=== PATIENT | female | born 1950 | race Caucasian/White ===

== ENCOUNTER 2016-04-13 17:11 | Observation (INO) | payer BC, MEDICARE ==
[2016-04-13] MEDS ORDERED: IPRATROPIUM/ALBUTEROL (0.5MG/3MG) NEB INH ONE (17:32)
--- NOTE | 2016-04-13 17:38 | Emergency Department Record ---
History of Present Illness - General Chief Complaint: Shortness of breath Stated Complaint: ANEUDY Time Seen by Provider: 04/13/16 17:36 Source: Patient Mode of Arrival: Ambulatory Limitations: No limitations - History of Present Illness Initial Comments: The patient has a long hx of COPD and now is here due to a 2 day hx of cough and congestion. She is not coughing up any sputum and denies any CP but is having ANEUDY and SOB with the congestion. She also has been feeling very warm lately and has been taking Advil for a presumed fever. The patient was admitted here at [facility] about a month ago due to the COPD and was an inpatient for 3 days. MD Complaint: Cough, Shortness of breath Onset/Timin -: Days(s) Radiation: Back Severity: Moderate Quality: Aching Consistency: Constant Improves With: Nothing Worsens With: Exertion Known History Of: COPD Associated Symptoms: Cough, Pain with inspiration Treatments Prior to Arrival: Bronchodilator - Related Data Home Oxygen Therapy: Yes Home Oxygen Amount: 2 Liters Home Medications Medication Instructions Recorded Confirmed Last Taken Albuterol Sulfate [Ventolin Hfa] 1 - 2 puff INH Q6H 07/02/14 04/13/16 03/15/16 Alendronate Sodium 1 tab PO WEEKLY 07/02/14 04/13/16 07/01/14 Mometasone/Formoterol [Dulera 200 2 puff IH BID 03/15/16 04/13/16 03/15/16 Mcg/5 Mcg Inhaler] Magnesium Oxide [Magnesium] 400 mg PO DAILY 03/16/16 04/13/16 Unknown Nicotine Polacrilex [Nicorette] 2 mg PO DAILY PRN 03/16/16 04/13/16 Unknown Previous Rx's Medication Instructions Recorded Guaifenesin [Mucinex] 1,200 mg PO BID #10 tbmp.12hr 03/18/16 Tiotropium [place] [Spiriva] 1 cap IH DAILY #1 cap.w.dev 03/18/16 Allergies Allergy/AdvReac Type Severity Reaction Status Date / Time Penicillins Allergy Unknown PT UNSURE Verified 07/02/14 13:24 OF REACTION Travel Screening - Travel/Exposure Within Last 30 Days Have you traveled within the last 30 days?: No Review of Systems Constitutional: Reports: Chills, Fever, Malaise Eyes: Denies: Eye discharge ENT: Reports: Congestion Respiratory: Reports: Cough, Dyspnea Cardiovascular: Denies: Arrhythmia, Chest pain Endocrine: Reports: Fatigue Gastrointestinal: Denies: Diarrhea, Vomiting Genitourinary: Denies: Dysuria Musculoskeletal: Reports: Back pain Skin: Denies: Bruising Past Medical History - SOCIAL HISTORY Smoking Status: Former smoker Alcohol Use: None Drug Use: None - RESPIRATORY Hx Respiratory Disorders: Yes Hx COPD: Yes - CARDIOVASCULAR Hx Cardio Disorders: No - NEURO Hx Neuro Disorders: No - GI Hx GI Disorders: No - Hx Genitourinary Disorders: No - ENDOCRINE Hx Endocrine Disorders: No - MUSCULOSKELETAL Hx Musculoskeletal Disorders: Yes Hx Arthritis: Yes Hx Osteoporosis: Yes - PSYCH Hx Psych Problems: Yes Hx Anxiety: Yes Hx Depression: Yes - HEMATOLOGY/ONCOLOGY Hx Hematology/Oncology Disorders: No Family Medical History Any Significant Family History?: Yes Hx Cancer: Father, Grandparents Hx Heart Disease: Father Physical Exam - General General Appearance: Alert, Oriented x3, Cooperative, Mild distress (due to ANEUDY.) - Head Head exam: Atraumatic, Normocephalic, Normal inspection - Eye Eye exam: Normal appearance, PERRL - ENT Throat exam: Normal inspection. negative: Tonsillar erythema, Tonsillar exudate - Neck Neck exam: Normal inspection, Full ROM. negative: Tenderness - Respiratory Respiratory exam: Accessory muscle use (mild.), Decreased breath sounds, Respiratory distress (mild.), Rhonchi (at the bases.). negative: Normal lung sounds bilaterally - Cardiovascular Cardiovascular Exam: Regular rate, Normal rhythm, Normal heart sounds - GI/Abdominal GI/Abdominal exam: Soft, Normal bowel sounds. negative: Tenderness - Extremities Extremities exam: Normal inspection, Full ROM, Normal capillary refill. negative: Tenderness - Neurological Neurological exam: Normal gait. negative: Abnormal gait Course Vital Signs 04/13/16 17:17 Temperature 99.0 F Pulse Rate 120 H Respiratory 26 H Rate Blood Pressure 122/71 Pulse Ox 96 - Reevaluation(s) Reevaluation #1: The patient is doing much better at this time. She denies any CP at this time and her ANEUDY is improved. On exam her lung aeration is much improved and she feels better. 04/13/16 18:21 Reevaluation #2: The patient is feeling better and has improved breath sounds and aeration. There no longer are any wheezes but her breathing is still mildly labored. I do believe the patient needs to stay in the hospital to maximize her respiratory status and she agrees. I also did discuss the case with Larissa (OTTO) and she accepts the admission for Dr. Zuniga. 04/13/16 18:29 Medical Decision Making - Data Complexity MDM Data: Labs Ordered and/or Reviewed, X-Ray Ordered and/or Reviewed, EKG Ordered and/or Reviewed - Lab Data Result diagrams: 04/13/16 17:35 04/13/16 17:35 - EKG Data -: EKG Interpreted by Me EKG: No Acute Changes, Unchanged From Previous - Radiology Data Radiology results: Report reviewed (CXR: COPD with no acute changes.) Disposition Disposition: Admit Clinical Impression: COPD exacerbation Disposition: Still a Patient at [facility] Decision to Admit: Admit from ER Decision to Admit Date: 04/13/16 Decision to Admit Time: 18:32 Accepting Physician: Nadia Time Discussed w/Accepting Physician: 18:33 Condition: (2) Stable Forms: Patient Portal Access Time of Disposition: 18:33
[2016-04-13] MEDS ORDERED: ALBUTEROL SULFATE (0.083%) 2.5 MG/3 ML NEB INH ONE (17:44)
[2016-04-13] MEDS ORDERED: METHYLPREDNISOLONE PF 125MG/VIAL IVP ONE (17:44)
[2016-04-13 17:50] LABS: BASO % 0.2 % (0-6); EOS % 0.3 % (0-6); GRAN % 79.8 % (47-80); HEMATOCRIT 39.5 % (35.0-47.0); HEMOGLOBIN 13.7 gm/dl (11.6-16.0); LYMPH % 8.4 % (16-45); MEAN CELL VOLUME 89.8 fl (81-97); MEAN CORPUSCULAR HEMOGLOBIN 31.1 pg (27-33); MEAN CORPUSCULAR HGB CONC 34.7 g/dl (32-36); MEAN PLATELET VOLUME 10.2 fl (7.4-10.4); MONO % 11.3 % (0-9); PLATELET COUNT 221 K/uL (130-400); RED CELL DISTRIBUTION WIDTH 12.6 % (11.5-14.5); WHITE BLOOD COUNT W/O DIFF 10.4 K/uL (4.2-12.2)
[2016-04-13 18:02] LABS: ANION GAP 16.5 (7-16); BLOOD UREA NITROGEN 24 mg/dL (7-17); CARBON DIOXIDE 24.5 mmol/L (22-30); CREATININE 0.8 mg/dL (0.52-1.04); EST GLOMERULAR FILTRATION RATE > 60 ml/min; GLUCOSE,RANDOM 110 mg/dL (70-110)
[2016-04-13 18:14] LABS: TROPONIN I < 0.012 ng/mL (0.00-0.034)
[2016-04-13] MEDS ORDERED: LEVOFLOXACIN 500 MG TABLET PO ONE (18:27)
[2016-04-13] MEDS ORDERED: ACETAMINOPHEN 500 MG TABLET PO PRN (19:43)
[2016-04-13] MEDS ORDERED: NICOTINE POLACRILEX 2 MG GUM BC PRN (19:43)
[2016-04-13] MEDS ORDERED: ALBUTEROL SULFATE (0.083%) 2.5 MG/3 ML NEB INH PRN (19:43)
[2016-04-13] MEDS: IPRATROPIUM/ALBUTEROL (0.5MG/3MG) NEB INH SCH (21:19)
[2016-04-13] MEDS ORDERED: FORMOTEROL IH SCH (22:00)
[2016-04-13] MEDS ORDERED: MOMETASONE IH SCH (22:00)
[2016-04-13] MEDS: GUAIFENESIN 1,200 MG TABLET PO SCH (22:31)
[2016-04-14] MEDS ORDERED: LEVOFLOXACIN 500 MG TABLET PO SCH (06:00)
[2016-04-14] MEDS: IPRATROPIUM/ALBUTEROL (0.5MG/3MG) NEB INH SCH ×3 (06:27→13:53)
[2016-04-14 07:12] LABS: HEMATOCRIT 36.6 % (35.0-47.0); HEMOGLOBIN 12.5 gm/dl (11.6-16.0); MEAN CELL VOLUME 90.8 fl (81-97); MEAN CORPUSCULAR HGB CONC 34.2 g/dl (32-36); MEAN PLATELET VOLUME 10.6 fl (7.4-10.4); PLATELET COUNT 202 K/uL (130-400); RED BLOOD COUNT 4.03 M/uL (3.80-5.40); RED CELL DISTRIBUTION WIDTH 12.5 % (11.5-14.5); WHITE BLOOD COUNT W/O DIFF 8.2 K/uL (4.2-12.2)
--- NOTE | 2016-04-14 07:16 | RADIOLOGY REPORT ---
EXAM: CHEST, TWO VIEWS HISTORY: COUGH. TECHNIQUE: Frontal and lateral views of the chest were obtained. Comparison: 03/15/16 chest. FINDINGS: The heart size is normal. Underlying emphysema. Osteopenia. No pneumothorax. Chronic interstitial changes bilaterally. No confluent air space opacity. IMPRESSION: UNDERLYING EMPHYSEMA. NO ACUTE CARDIOPULMONARY PROCESS. JOB NUMBER: [id number] MTDD
[2016-04-14 07:22] LABS: ALB/GLOB RATIO 1.6 (1.1-1.8); ALBUMIN 4.3 gm/dL (3.5-5.0); ALKALINE PHOSPHATASE 65 U/L (38-126); ALT/SGPT 14 U/L (9-52); AST/SGOT 25 U/L (14-36); BLOOD UREA NITROGEN 14 mg/dL (7-17); CREATININE 0.6 mg/dL (0.52-1.04); EST GLOMERULAR FILTRATION RATE > 60 ml/min; GLUCOSE,RANDOM 190 mg/dL (70-110)
[2016-04-14 07:39] LABS: PLATELET ESTIMATE NORMAL (NORMAL)
[2016-04-14] MEDS ORDERED: TIOTROPIUM BROMIDE 5 CAPSULES INH SCH (10:00)
[2016-04-14] MEDS ORDERED: MAGNESIUM OXIDE 400 MG TABLET PO SCH (10:00)
[2016-04-14] MEDS ORDERED: METHYLPREDNISOLONE PF 125MG/VIAL IVP SCH (10:00)
[2016-04-14] MEDS ORDERED: FLUTICASONE/SALMETEROL 250/50 DISKUS INH SCH (10:15)
[2016-04-14] MEDS: GUAIFENESIN 1,200 MG TABLET PO SCH (10:24)
--- NOTE | 2016-04-14 13:04 | Discharge Note ---
Discharge Note - Date Date of Discharge Note: 04/14/16 Disposition: Home, Self-Care Condition: (1) Good Additional Instructions: follow up with Dr. Burton in 7 days Use home oxygen 2 liters per minute patient already has oxygen at home. Drink fluids water 6 glasses per day Start oral prednisone today Use albuterol inhaler 2 puffs every 4 hours while awake Prescriptions: Levofloxacin [Levaquin] 500 mg PO DAILYFLUOR #7 tablet Prednisone [Prednisone 10Mg] 10 mg PO ASDIR #30 tab Forms: Patient Portal Access Activity at Discharge: Increase Activity as Tolerated
--- NOTE | 2016-04-15 08:16 | History and Physical Report ---
DATE OF ADMISSION: 04/14/2016. CHIEF COMPLAINT: Dyspnea. HISTORY OF PRESENT ILLNESS: This 65-year-old female presented to the emergency department short of breath for the last two days with a cough and congestion. She was an inpatient about one month ago for chronic obstructive pulmonary disease here at this hospital for three days. She was evaluated in the emergency department by Dr. Negron and was diagnosed with chronic obstructive pulmonary disease exacerbation. Her primary care physician is Barbara Burton in the [facility]. PAST MEDICAL HISTORY: Chronic obstructive pulmonary disease, arthritis, anxiety and depression. PAST SURGICAL HISTORY: Right breast lumpectomy in 2013; negative for cancer. MEDICATIONS ON ADMISSION: She is on Spiriva one capsule a day. She is also on Dulera 200 mcg/5.0 mcg two puffs b.i.d., magnesium oxide 400 mg q. daily, Mucinex 1,200 mg b.i.d., Fosamax 70 mg q. weekly, Ventolin inhaler two puffs q. four hours. She uses home oxygen at two liters per minute. She usually only uses it when she is sleeping. I told her that when she is sick like this, she should be on it all of the time. ALLERGIES: Penicillin. FAMILY/PSYCHOSOCIAL HISTORY: She was a heavy smoker; she smoked 2.5 packs per day the last 20 years of her smoking history. She started smoking at 19 years of age. She has two children. 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 REVIEW OF SYSTEMS: HEENT: She has congestion, a cough, and a slight sore throat when this started. Cardiovascular: No chest pain, palpitations, or arrhythmias. Respiratory: She has a cough and congestion and is short of breath. She is breathing much better today. Gastrointestinal: No nausea, vomiting, diarrhea, black stools, or bloody stools. Genitourinary: No dysuria, hematuria, frequency, or burning on urination. Musculoskeletal: She does have arthritis in her joints, but she ambulates well. Neurologic: No cerebrovascular accident, paralysis, or paraesthesias. Gynecologic: She had a lump removed from her breast, but that was benign. No vaginal bleeding. Endocrine: No diabetes or thyroid disease. Integument: No rash, yellow skin, or moles that are abnormal. PHYSICAL EXAMINATION: General: Height is 5 feet, 6 inches. Weight is 95 pounds. Vital Signs: Temperature was 99.0 in the emergency department. Pulse was 120, blood pressure was 122/71, respiratory rate was 26. She was tachypneic. Pulse oximetry was 96% on two liters. At my examination she is much improved for the physical examination. Temperature is 98.1, pulse is 89, blood pressure is 113/ 58, respiratory rate is 20, pulse oximetry is 94% on two liters. HEENT: Pupils are equal, round, and reactive to light and accommodation. Extraocular muscles are intact. The throat is clear. The nose is clear. The tympanic membranes are basurto. Neck: The neck is supple. No jugular venous distension. No hepatojugular reflex. No carotid bruit. The thyroid is smooth. Cardiovascular: Regular rate and rhythm without murmurs, clicks, rubs, or gallops. Respiratory: Decreased breath sounds bilaterally but no wheezing. Abdomen: Soft and nontender. No hepatosplenomegaly. No masses. No tenderness. Bowel sounds are active. No bruit. Extremities: No pitting edema. No cyanosis. No clubbing. Full range of motion. Peripheral pulses are good. Breasts, Gynecological, and Rectal Examinations: Deferred. Neurological Examination: Cranial nerves II through XII are intact. No gross defect. Sensation is normal. Strength is normal. Deep tendon reflexes are equal bilaterally. Babinski is negative. Mental Status: Alert and oriented times three. IMPRESSIONS: 1. Acute bronchitis. 2. Acute exacerbation of chronic obstructive pulmonary disease. PLAN: Use breathing treatments to improve her care, and it did do that. The patient is to continue on with Levaquin 500 mg once a day. Prednisone 40 mg a day for three days and then 30 mg a day for three days, 20 mg a day for three days, and then 10 mg a day for three days; dispensing 10 mg pills. Drink six to eight glasses of water a day. Use the home oxygen all of the time at two liters per minute per nasal cannula. Follow up with Dr. Burton in seven days. Use the albuterol inhaler two puffs q. four hours while awake. Shashi Roy D.O. Date Time JOB NUMBER: [id number] [facility]
--- NOTE | 2016-04-15 16:10 | Discharge Summary ---
DATE OF DISCHARGE: 04/14/16 DISCHARGE DIAGNOSES: 1. ACUTE BRONCHITIS. 2. COPD EXACERBATION. ATTENDING PHYSICIAN: Shashi Roy D.O. REASON FOR HOSPITALIZATION: DYSPNEA, WORSE IN THE LAST 24 HOURS PRIOR TO ADMISSION AND RHINORRHEA FOR ABOUT ONE WEEK: She presented to the Emergency Department with a two-day history of cough and congestion, dry cough, short of breath, and was in the hospital for COPD about a month ago for three days. She was admitted to the hospital as an observation patient for COPD exacerbation. Currently, she is drinking fluids. She is walking around the room. She still has a slight cough but doing much better according to the patient. She is an ex- smoker, stopped two years ago. She did smoke 2.5 packs per day and she started smoking at 19 years of age. SIGNIFICANT FINDINGS: Chest x-ray showing COPD but no acute infiltrate. LABORATORY: Her white count was 10,400, her hemoglobin was 13.7, potassium was 4.1, sodium was 135, chloride is 94, BUN is 24, creatinine is 0.8, troponin was 0.012. THERAPY PROVIDED: The patient was given breathing treatments and IV Solu-Medrol , started on oral Levaquin and she is doing much better. HOSPITAL COURSE: Unremarkable. CONDITION AT DISCHARGE: Much improved. DISCHARGE INSTRUCTIONS: He is to follow-up with Dr. Barbara Burton in seven days. Continue to use her home oxygen at 2 liters per minute, 24 hours, until she sees her doctor. Drink water, about six glasses a day. Start oral Prednisone 40 mg a day for three days, then 30 mg a day for three days, then 20 mg a day for three days, and 10 mg a day for three days. Use her Albuterol inhaler two puffs every four hours while awake. We will start her on Levaquin 500 mg every day for seven days. Shashi Roy D.O. Date & Time cc: Dr. Barbara uBrton JOB NUMBER: [id number] MTDD
[2016-04-20] MEDS ORDERED: ALENDRONATE SODIUM PO SCH (10:00)
== END 2016-04-14 16:13 | disposition home or self-care (01) ==
LOC: ER 17:11 → MEDSURG 19:12
PROVIDERS: ADMIT Family Medicine; ATTEND Family Medicine
DX: J44.0 Chronic obstructive pulmonary disease with (acute) lower respiratory infection (principal); J44.1 Chronic obstructive pulmonary disease with (acute) exacerbation; J20.9 Acute bronchitis, unspecified; Z87.891 Personal history of nicotine dependence
CPT/HCPCS: 99285 ×2; 96374; 85025; 84484; 80048; 80053; 85027; 71020; 94640 ×4; 94760; 93005; 93010; G0378 ×2; 99220; J2930; J7613

== ENCOUNTER 2016-04-28 13:41 | Emergency (ER) | payer BC, MEDICARE ==
[2016-04-28] MEDS ORDERED: IPRATROPIUM/ALBUTEROL (0.5MG/3MG) NEB INH ONE (13:53)
[2016-04-28] MEDS ORDERED: METHYLPREDNISOLONE PF 125MG/VIAL IM ONE (13:53)
--- NOTE | 2016-04-28 13:58 | Emergency Department Record ---
History of Present Illness - General Chief Complaint: Shortness of breath Stated Complaint: ANEUDY AND COUGH Time Seen by Provider: 04/28/16 13:51 Source: Patient Mode of Arrival: Ambulatory Limitations: No limitations - History of Present Illness Initial Comments: 65 yo female presents to ED with a CC of increasing difficulty in breathing symptoms for the past 1-2 days. Patient reports a significant history of COPD, uses oxygen at night and with home activities. Patient denies productive cough symptoms, fevers, or chills. Patient reports recent observation stay for similar symptoms. MD Complaint: Shortness of breath Onset/Timin -: Days(s) Severity: Moderate Consistency: Intermittent Improves With: Nothing Worsens With: Nothing Known History Of: COPD Associated Symptoms: Denies other symptoms Treatments Prior to Arrival: Other ("inhalers") - Related Data Home Oxygen Therapy: Yes Home Oxygen Amount: 2 Liters Home Medications Medication Instructions Recorded Confirmed Last Taken Albuterol Sulfate [Ventolin Hfa] 1 - 2 puff INH Q2HR PRN 07/02/14 04/13/1603/15 Alendronate Sodium 1 tab PO WEEKLY 07/02/14 04/13/16 07/01/14 Mometasone/Formoterol [Dulera 200 2 puff IH BID 03/15/16 04/13/16 03/15/16 Mcg/5 Mcg Inhaler] Magnesium Oxide [Magnesium] 400 mg PO DAILY 03/16/16 04/13/16 Unknown Phenylephrine/Dm/Acetaminop/GG 1 each PO Q8H PRN 04/28/16 04/28/16 Unknown [Severe Cold & Flu Caplet] Previous Rx's Medication Instructions Recorded Guaifenesin [Mucinex] 1,200 mg PO BID #10 tbmp.12hr 03/18/16 Tiotropium [place] [Spiriva] 1 cap IH DAILY #1 cap.w.dev 03/18/16 Albuterol Sulfate 0.083% [Neb] 3 ml NEB .EVERY 4-6 HOURS PRN #30 04/28/16 ml Prednisone [Prednisone 20Mg] 20 mg PO TID #12 tab 04/28/16 Allergies Allergy/AdvReac Type Severity Reaction Status Date / Time Penicillins Allergy Unknown PT UNSURE Verified 04/28/16 13:59 OF REACTION Review of Systems Constitutional: Denies: Chills, Fever, Malaise, Night sweats Eyes: Denies: Eye discharge, Eye pain ENT: Denies: Congestion, Ear pain, Epistaxis Respiratory: Reports: Dyspnea, Wheezes. Denies: Cough Cardiovascular: Reports: Dyspnea on exertion. Denies: Chest pain, Palpitations Endocrine: Denies: Fatigue, Heat or cold intolerance Gastrointestinal: Denies: Abdominal pain, Nausea, Vomiting Genitourinary: Denies: Dysuria, Frequency, Hematuria Musculoskeletal: Denies: Arthralgia, Back pain, Gout Skin: Denies: Bruising, Change in color Neurological: Denies: Abnormal gait, Confusion, Headache, Seizure Psychiatric: Denies: Anxiety Hematological/Lymphatic: Denies: Anemia, Blood Clots Past Medical History - SOCIAL HISTORY Smoking Status: Former smoker Drug Use: None - RESPIRATORY Hx Respiratory Disorders: Yes Hx COPD: Yes - CARDIOVASCULAR Hx Cardio Disorders: No - NEURO Hx Neuro Disorders: No - GI Hx GI Disorders: No - Hx Genitourinary Disorders: No - ENDOCRINE Hx Endocrine Disorders: No - MUSCULOSKELETAL Hx Musculoskeletal Disorders: Yes Hx Arthritis: Yes Hx Osteoporosis: Yes - PSYCH Hx Psych Problems: Yes Hx Anxiety: Yes Hx Depression: Yes - HEMATOLOGY/ONCOLOGY Hx Hematology/Oncology Disorders: No Family Medical History Hx Cancer: Father, Grandparents Hx Heart Disease: Father Physical Exam - General General Appearance: Alert, Oriented x3, Cooperative, Mild distress Limitations: No limitations - Head Head exam: Atraumatic, Normocephalic, Normal inspection Head exam detail: negative: Abrasion, Contusion, Bradley's sign, General tenderness, Hematoma, Laceration - Eye Eye exam: Normal appearance. negative: Conjunctival injection, Periorbital swelling, Periorbital tenderness, Scleral icterus - ENT Ear exam: negative: Auricular hematoma, Auricular trauma Nasal Exam: negative: Active bleeding, Discharge, Dried blood, Foreign body Mouth exam: negative: Drooling, Laceration, Muffled voice, Tongue elevation - Neck Neck exam: Normal inspection. negative: Meningismus, Tenderness - Respiratory Respiratory exam: Prolonged expiratory, Wheezes. negative: Respiratory distress , Rhonchi, Stridor - Cardiovascular Cardiovascular Exam: Regular rate, Normal rhythm, Normal heart sounds - GI/Abdominal GI/Abdominal exam: Soft. negative: Distended, Rebound, Rigid, Tenderness - Rectal Rectal exam: Deferred - exam: Deferred - Extremities Extremities exam: Normal inspection. negative: Calf tenderness, Pedal edema, Tenderness - Back Back exam: Denies: CVA tenderness (R), CVA tenderness (L) - Neurological Neurological exam: Alert, Normal gait, Oriented X3 - Psychiatric Psychiatric exam: Normal affect, Normal mood - Skin Skin exam: Normal color. negative: Abrasion Type of lesion: negative: abrasion Course - Reevaluation(s) Reevaluation #1: 04/28/16 14:21 Patient reassessed, reports improvement in her symptoms. Will continue to monitor. Reevaluation #2: 04/28/16 15:01 Patient reports improvement in her symptoms, ambulating biox 94-97% on her 2 Liters NC. Patient reports that she is feeling much better and appears stable for discharge at this time with return for any worsening of her symptoms. Disposition Disposition: Discharge Clinical Impression: COPD exacerbation Disposition: Home, Self-Care Condition: (2) Stable Instructions: Chronic Obstructive Pulmonary Disease (ED) Additional Instructions: Return to ED if your symptoms worsen or if you have any concerns. Prednisone and Albuterol as directed. Follow-up with Dr. Villar in 3-5 days as directed. Prescriptions: Albuterol Sulfate 0.083% [Neb] 3 ml NEB .EVERY 4-6 HOURS PRN #30 ml PRN Reason: Difficulty In Breathing Prednisone [Prednisone 20Mg] 20 mg PO TID #12 tab Forms: Patient Portal Access Time of Disposition: 15:02
== END 2016-04-28 15:45 | disposition home or self-care (01) ==
LOC: ER 13:41
DX: J44.1 Chronic obstructive pulmonary disease with (acute) exacerbation (principal); Z87.891 Personal history of nicotine dependence
CPT/HCPCS: 94640; 96372; 99283; 99284; J2930

== ENCOUNTER 2016-10-11 10:16 | Inpatient (IN) | payer BC, MEDICARE ==
--- NOTE | 2016-10-11 10:31 | Emergency Department Record ---
History of Present Illness - General Chief Complaint: Difficulty Breathing Stated Complaint: ANEUDY Time Seen by Provider: 10/11/16 10:31 Source: Patient Mode of Arrival: Ambulatory Limitations: No limitations - History of Present Illness Initial Comments: The patient is here due to a 2 day hx of cough, SOB, and ANEUDY. She is having some upper chest pain with coughing and deep breathing. The patient has a long hx of COPD and feels like she is having another exacerbation. She denies any fever, chills, AP, back pain or any change in her medicines. MD Complaint: Cough, Shortness of breath Onset/Timin -: Days(s) Severity: Moderate Severity scale (1-10): 8 Quality: Aching Improves With: Bronchodilators Worsens With: Exertion Known History Of: COPD - Related Data Home Medications Medication Instructions Recorded Confirmed Last Taken Albuterol Sulfate [Ventolin Hfa] 1 - 2 puff INH Q2HR PRN 07/02/14 10/11/16 1 Day Ago ~10/10/16 Alendronate Sodium 1 tab PO WEEKLY 07/02/14 10/11/16 1 Month Ago ~09/11/16 Mometasone/Formoterol [Dulera 200 2 puff IH BID 03/15/16 10/11/16 1 Day Ago Mcg/5 Mcg Inhaler] ~10/10/16 Magnesium Oxide [Magnesium] 400 mg PO DAILY 03/16/16 10/11/16 1 Day Ago ~10/10/16 Phenylephrine/Dm/Acetaminop/GG 1 each PO Q8H PRN 04/28/16 10/11/16 1 Day Ago [Severe Cold & Flu Caplet] ~10/10/16 Guaifenesin [Mucinex] 1,200 mg PO QID 10/11/16 10/11/16 1 Day Ago ~10/10/16 Previous Rx's Medication Instructions Recorded Tiotropium [place] [Spiriva] 1 cap IH DAILY #1 cap.w.dev 03/18/16 Albuterol Sulfate 0.083% [Neb] 3 ml NEB .EVERY 4-6 HOURS PRN #30 04/28/16 ml Allergies Allergy/AdvReac Type Severity Reaction Status Date / Time Penicillins Allergy Unknown PT UNSURE Verified 10/11/16 10:24 OF REACTION Travel Screening - Travel/Exposure Within Last 30 Days Have you traveled within the last 30 days?: No - Travel/Exposure Within Last Year Have you traveled outside the [place] in the last year?: No - Additonal Travel Details Have you been exposed to anyone with a communicable illness?: No - Travel Symptoms Symptom Screening: None Review of Systems Constitutional: Denies: Chills, Fever Eyes: Denies: Eye discharge Respiratory: Reports: Cough, Dyspnea. Denies: Hemoptysis, Stridor Cardiovascular: Denies: Arrhythmia, Chest pain Past Medical History - SOCIAL HISTORY Smoking Status: Former smoker Alcohol Use: None Drug Use: None - RESPIRATORY Hx Respiratory Disorders: Yes Hx Bronchitis: Yes Hx COPD: Yes - CARDIOVASCULAR Hx Cardio Disorders: No - NEURO Hx Neuro Disorders: No - GI Hx GI Disorders: No - Hx Genitourinary Disorders: No - ENDOCRINE Hx Endocrine Disorders: No - MUSCULOSKELETAL Hx Musculoskeletal Disorders: Yes Hx Arthritis: Yes Hx Osteoporosis: Yes - PSYCH Hx Psych Problems: Yes Hx Anxiety: Yes Hx Depression: Yes - HEMATOLOGY/ONCOLOGY Hx Hematology/Oncology Disorders: No Family Medical History Any Significant Family History?: Yes Hx Cancer: Father, Grandparents Hx Heart Disease: Father Physical Exam - General General Appearance: Alert, Oriented x3, Cooperative, No acute distress - Head Head exam: Atraumatic, Normocephalic, Normal inspection - Eye Eye exam: Normal appearance, PERRL - ENT Throat exam: Normal inspection. negative: Tonsillar erythema, Tonsillar exudate - Neck Neck exam: Normal inspection, Full ROM. negative: Tenderness - Respiratory Respiratory exam: Decreased breath sounds (R base.), Respiratory distress (very mild.). negative: Normal lung sounds bilaterally - Cardiovascular Cardiovascular Exam: Regular rate, Normal rhythm, Normal heart sounds - GI/Abdominal GI/Abdominal exam: Soft, Normal bowel sounds. negative: Tenderness - Extremities Extremities exam: Normal inspection, Full ROM, Normal capillary refill. negative: Tenderness - Neurological Neurological exam: Alert, Normal gait. negative: Abnormal gait, Motor sensory deficit Course Vital Signs 10/11/16 10:17 Pulse Rate 102 H Respiratory 30 H Rate Blood Pressure 129/96 Pulse Ox 93 L - Reevaluation(s) Reevaluation #1: The patient is doing better at this time. She states her ANEUDY is improving and she denies any CP. I did discuss the case with Marianna BAEZA) and she does agree to the admission. 10/11/16 12:14 Medical Decision Making - Data Complexity MDM Data: Labs Ordered and/or Reviewed, X-Ray Ordered and/or Reviewed - Lab Data Result diagrams: 10/11/16 10:20 10/11/16 10:20 - EKG Data -: EKG Interpreted by Me EKG: No Acute Changes, Unchanged From Previous - Radiology Data Radiology results: Report reviewed (CXR: COPD) Disposition Disposition: Admit Clinical Impression: COPD exacerbation Disposition: Still a Patient at [facility] Decision to Admit: Admit from ER Decision to Admit Date: 10/11/16 Decision to Admit Time: 12:16 Accepting Physician: Nadia Time Discussed w/Accepting Physician: 12:16 Condition: (2) Stable Forms: Patient Portal Access Time of Disposition: 12:16 Quality - Quality Measures Quality Measures: N/A - Blood Pressure Screening View Details: Yes Blood Pressure Classification: Hypertensive Reading Systolic Measurement: 129 Diastolic Measurement: 96 Screening for High Blood Pressure: < Pre-Hypertensive BP, F/U Documented > [ [id number]] Pre-Hypertensive Follow-up Interventions: Follow-up with rescreen every year.
[2016-10-11] MEDS ORDERED: METHYLPREDNISOLONE PF 125MG/VIAL IVP ONE (10:47)
[2016-10-11] MEDS: IPRATROPIUM/ALBUTEROL (0.5MG/3MG) NEB INH ONE ×2 (10:51→13:53)
[2016-10-11 10:55] LABS: HEMATOCRIT 38.3 % (35.0-47.0); HEMOGLOBIN 13.4 gm/dl (11.6-16.0); MEAN CELL VOLUME 86.8 fl (81-97); MEAN CORPUSCULAR HEMOGLOBIN 30.4 pg (27-33); MEAN PLATELET VOLUME 10.7 fl (7.4-10.4); PLATELET COUNT 245 K/uL (130-400); RED BLOOD COUNT 4.41 M/uL (3.80-5.40); RED CELL DISTRIBUTION WIDTH 12.7 % (11.5-14.5); WHITE BLOOD COUNT W/O DIFF 10.3 K/uL (4.2-12.2)
[2016-10-11 11:05] LABS: PLATELET ESTIMATE NORMAL (NORMAL)
[2016-10-11 11:07] LABS: BLOOD UREA NITROGEN 10 mg/dL (7-17); CREATININE 0.6 mg/dL (0.52-1.04); EST GLOMERULAR FILTRATION RATE > 60 ml/min; GLUCOSE,RANDOM 100 mg/dL (70-110)
[2016-10-11 11:17] LABS: CKMB 0.7 ug/L (0-6)
[2016-10-11 11:20] LABS: TROPONIN I < 0.012 ng/mL (0.00-0.034)
[2016-10-11] MEDS ORDERED: ALBUTEROL SULFATE (0.083%) 2.5 MG/3 ML NEB INH ONE (11:23)
[2016-10-11] MEDS ORDERED: LORAZEPAM 2 MG/ML VIAL IV ONE (12:03)
[2016-10-11] MEDS ORDERED: IPRATROPIUM/ALBUTEROL (0.5MG/3MG) NEB INH PRN (15:14)
[2016-10-11] MEDS ORDERED: ACETAMINOP PO PRN (15:14)
[2016-10-11] MEDS ORDERED: PHENYLEPHRINE PO PRN (15:14)
[2016-10-11] MEDS ORDERED: [UNRECOGNIZED DRUG - OTHER] PO PRN (15:14)
[2016-10-11] MEDS: IPRATROPIUM/ALBUTEROL (0.5MG/3MG) NEB INH SCH ×2 (18:18→21:07)
--- NOTE | 2016-10-11 20:20 | History & Physical ---
History of Present Illness - Date of Service Date of Service for History & Physical: 10/12/16 - History of Present Illness Admitting Diagnosis: 1. COPD Exacerbation. History of Present Illness: 65yo female with CC of shortness of breath. She is a former smoker (quit 2 years ago, 50+ year 2.5-3 ppd smoker) and had a history of COPD (advanced emphysema), arthritis, osteoporosis, anxiety and depression. Patient presented to the ED with a 2 day history of shortness of breath & chest tightness. She started experiencing increased SOB yesterday morning while vacuuming. She was not able to catch her breath after being seated for 10-15 minutes and became more anxious. Her chest tightness remained unchanged as well. She then decided to drive herself to our ED. While in the ED, patient was found to have room air oxygen saturation of 93% on RA. D-dimer negative. She had an EKG which showed NS w/ incomplete RBBB and cardiac enzymes were negative. Her CXR showed advanced emphysematous changes but was otherwise nap. WBC count normal and patient afebrile. 125 mg of IV solumedrol administered for COPD exacerbation, duo neb treatments ordered. Patient placed on telemetry and admitted for further medical management. 10/12/16- Patient states she is feeling better today. She says her shortness of breath has improved from yesterday with the supplemental oxygen and breathing treatments Q4H. She continues to report some chest pressure with deep inspiration. She denies chest pain, but continues to have a dry, non productive cough. She denies feeling chilled or warm. She is not short of breath while laying in bed, but gets winded easily going to the bathroom. Her O2 on RA dropped to 89% last night with ambulation. She uses 2L/min via NC at night. No supplemental O2 during the day unless she feels she needs it. Typically uses her nebulized treatments once every other day. PCP: Cl[facility]: Dr. Rica Self Travel Screening - Travel/Exposure Within Last 30 Days Have you traveled within the last 30 days?: No - Travel/Exposure Within Last Year Have you traveled outside the [place] in the last year?: No - Additonal Travel Details Have you been exposed to anyone with a communicable illness?: No - Travel Symptoms Symptom Screening: Headache, Joint & Muscle Aches, Lack of Appetite Review of Systems Constitutional: Denies: Chills, Fever, Night sweats, Weakness Eyes: Denies: Eye discharge Respiratory: Reports: Cough, Dyspnea. Denies: Hemoptysis, Stridor Cardiovascular: Denies: Arrhythmia, Chest pain Gastrointestinal: Denies: Constipation, Diarrhea, Nausea, Vomiting Genitourinary: Denies: Dysuria, Hematuria Musculoskeletal: Denies: Back pain Skin: Denies: Rash Neurological: Denies: Abnormal gait, Confusion, Headache Psychiatric: Denies: Anxiety Past Medical History - SOCIAL HISTORY Smoking Status: Former smoker - RESPIRATORY Hx Respiratory Disorders: Yes Hx Bronchitis: Yes Hx COPD: Yes - CARDIOVASCULAR Hx Cardio Disorders: No - NEURO Hx Neuro Disorders: No - GI Hx GI Disorders: No - Hx Genitourinary Disorders: No - ENDOCRINE Hx Endocrine Disorders: No - MUSCULOSKELETAL Hx Musculoskeletal Disorders: Yes Hx Arthritis: Yes Hx Osteoporosis: Yes - PSYCH Hx Psych Problems: Yes Hx Anxiety: Yes Hx Depression: Yes - HEMATOLOGY/ONCOLOGY Hx Hematology/Oncology Disorders: No Family Medical History Any Significant Family History?: Yes Hx Cancer: Father, Grandparents Hx Heart Disease: Father H&P Meds/Allergies - Allergies Allergies: Allergies Allergy/AdvReac Type Severity Reaction Status Date / Time Penicillins Allergy Unknown PT UNSURE Verified 10/11/16 10:24 OF REACTION - Home Medications Home Medications Medication Instructions Recorded Confirmed Last Taken Albuterol Sulfate [Ventolin Hfa] 1 - 2 puff INH Q2HR PRN 07/02/14 10/11/16 1 Day Ago ~10/10/16 Alendronate Sodium 1 tab PO WEEKLY 07/02/14 10/11/16 1 Month Ago ~09/11/16 Mometasone/Formoterol [Dulera 200 2 puff IH BID 03/15/16 10/11/16 1 Day Ago Mcg/5 Mcg Inhaler] ~10/10/16 Magnesium Oxide [Magnesium] 400 mg PO DAILY 03/16/16 10/11/16 1 Day Ago ~10/10/16 Phenylephrine/Dm/Acetaminop/GG 1 each PO Q8H PRN 04/28/16 10/11/16 1 Day Ago [Severe Cold & Flu Caplet] ~10/10/16 Guaifenesin [Mucinex] 1,200 mg PO QID 10/11/16 10/11/16 1 Day Ago ~10/10/16 Previous Rx's Medication Instructions Recorded Tiotropium [place] [Spiriva] 1 cap IH DAILY #1 cap.w.dev 03/18/16 Albuterol Sulfate 0.083% [Neb] 3 ml NEB .EVERY 4-6 HOURS PRN #30 04/28/16 ml - Active Medications Active Medications: Current Medications Albuterol/Ipratropium (Duoneb) 3 ml INH RESP.Q4H DANIEL Last Admin: 10/11/16 18:18 Dose: 3 ml Guaifenesin (Robitussin Dm) 10 ml PO Q4H PRN PRN Reason: mucus Magnesium Oxide (Mag Ox) 400 mg PO DAILY [facility] Methylprednisolone Sodium Succinate (Solu-Medrol) 60 mg IVP DAILY [facility] Non-Formulary Medication (Alendronate Sodium [Alendronate Sodium]) 1 tab PO WEEKLY [facility] Patient Own Med: (Dulera 200) 2 each IH BID [facility] Sodium Chloride (Hyper-Walker) 4 ml INH BID PRN PRN Reason: RESPIRATORY TREATMENT Physical Exam - Vital Signs Vital Signs: Vital Signs - Last 24 Hrs Temp Pulse Pulse Pulse Resp BP Pulse Ox 10/11/16 18:28 86 18 10/11/16 17:14 98.5 F 98 H 20 99/52 93 L 10/11/16 15:11 88 22 10/11/16 14:50 98.6 F 97 H 22 104/63 94 L - General General Appearance: Alert, Oriented x3, Cooperative, No acute distress Limitations: No limitations - Head Head exam: Atraumatic, Normocephalic, Normal inspection - Eye Eye exam: Normal appearance, PERRL - ENT Throat exam: Normal inspection. negative: Tonsillar erythema, Tonsillar exudate - Neck Neck exam: Normal inspection, Full ROM. negative: Tenderness - Respiratory Respiratory exam: Decreased breath sounds (R base.). negative: Normal lung sounds bilaterally, Rales, Rhonchi, Wheezes - Cardiovascular Cardiovascular Exam: Normal rhythm, Normal heart sounds, Tachycardia - GI/Abdominal GI/Abdominal exam: Soft, Normal bowel sounds. negative: Tenderness - Rectal Rectal exam: Deferred - exam: Deferred - Extremities Extremities exam: Normal inspection, Full ROM, Normal capillary refill. negative: Tenderness - Neurological Neurological exam: Alert, Normal gait, Oriented X3. negative: Abnormal gait, Motor sensory deficit Results - Labs Result Diagrams: 10/12/16 09:05 10/12/16 09:05 Labs Last 24 Hours: Laboratory Results - last 24 hr 10/11/16 10/11/16 15:55 15:55 CK-MB (CK-2) 0.4 Troponin I < 0.012 VTE H&P Assessment - Risk for VTE Risk for VTE: Yes Risk Level: Low (decreased mobility) Risk Assessment Date: 10/12/16 Risk Assessment Time: 11:00 VTE Orders Placed or Will Be Placed: Yes Plan - Detailed Diagnosis and Plan (1) COPD exacerbation Current Visit: Yes Status: Acute Base Code: J44.1 - CHRONIC OBSTRUCTIVE PULMONARY DISEASE W (ACUTE) EXACERBATION Comment: 10/12/16- CXR: severe emphysema, NAP. normal WBC. afebrile. EKG: RBBB, NS. negative d-dimer. CE negative x 3. - 60 mg of Solu medrol QD - Duo neb treatments Q4H scheduled - sodium chloride 4ml INH BID PRN - 2 L's supplemental oxygen - telemetry - VS Q4H (2) DVT prophylaxis Current Visit: No Status: Acute Base Code: [id number] - Comment: 10/12/16- SCDs to be worn in bed. will continue to promote frequent ambulation. (3) Full code status Current Visit: No Status: Acute Base Code: Z78.9 - OTHER SPECIFIED HEALTH STATUS Comment: 10/12/16- Patient is full code
[2016-10-11] MEDS: DULERA IH SCH (21:07)
[2016-10-11] MEDS: GUAIFENESIN/D-METH. 10 ML UDC PO PRN (21:41)
[2016-10-11 23:46] LABS: CKMB 0.6 ug/L (0-6); TROPONIN I < 0.012 ng/mL (0.00-0.034)
[2016-10-12] MEDS: IPRATROPIUM/ALBUTEROL (0.5MG/3MG) NEB INH SCH ×6 (02:20→21:12)
[2016-10-12] MEDS ORDERED: IBUPROFEN 400 MG TABLET PO ONE (04:36)
--- NOTE | 2016-10-12 07:30 | RADIOLOGY REPORT ---
EXAM: CHEST, TWO VIEWS HISTORY: ACUTE SHORTNESS OF BREATH, DIFFICULTY BREATHING UPPER LEFT LUNG. TECHNIQUE: Two views of the chest were obtained. Comparison: Chest x-ray 04/13/16. FINDINGS: Extensive lucency and hyperinflation throughout the lungs consistent with advanced emphysema. The lungs are clear. The cardiac silhouette, diaphragm, and osseous structures are unremarkable for age. IMPRESSION: ADVANCED EMPHYSEMA. NO ACUTE PROCESS. JOB NUMBER: [id number] MTDD
[2016-10-12 09:17] LABS: HEMATOCRIT 32.5 % (35.0-47.0); HEMOGLOBIN 11.4 gm/dl (11.6-16.0); MEAN CELL VOLUME 88.1 fl (81-97); MEAN CORPUSCULAR HGB CONC 35.1 g/dl (32-36); MEAN PLATELET VOLUME 10.1 fl (7.4-10.4); PLATELET COUNT 208 K/uL (130-400); RED BLOOD COUNT 3.69 M/uL (3.80-5.40); RED CELL DISTRIBUTION WIDTH 12.5 % (11.5-14.5); WHITE BLOOD COUNT W/O DIFF 8.7 K/uL (4.2-12.2)
[2016-10-12 09:18] LABS: MEAN CORPUSCULAR HEMOGLOBIN 30.8 pg (27-33)
[2016-10-12 09:34] LABS: ANION GAP 11.4 (7-16); BLOOD UREA NITROGEN 13 mg/dL (7-17); CARBON DIOXIDE 24.6 mmol/L (22-30); CREATININE 0.7 mg/dL (0.52-1.04); EST GLOMERULAR FILTRATION RATE > 60 ml/min; GLUCOSE,RANDOM 145 mg/dL (70-110)
[2016-10-12] MEDS: DULERA IH SCH ×2 (09:51→21:12)
[2016-10-12] MEDS ORDERED: TIOTROPIUM BROMIDE 5 CAPSULES INH SCH (10:00)
[2016-10-12] MEDS: MAGNESIUM OXIDE 400 MG TABLET PO SCH (10:34)
[2016-10-12] MEDS: METHYLPREDNISOLONE PF 125MG/VIAL IVP SCH (10:34)
[2016-10-12] MEDS ORDERED: POTASSIUM CHLORIDE 20 MEQ TABLET PO ONE (13:13)
[2016-10-12] MEDS: SODIUM CHLORIDE 7% FOR INHALATION 4 ML NEB INH PRN (16:54)
[2016-10-12] MEDS ORDERED: ROPINIROLE HCL 1 MG TABLET PO SCH (22:00)
[2016-10-12] MEDS: GUAIFENESIN/D-METH. 10 ML UDC PO PRN (22:07)
[2016-10-13] MEDS: IPRATROPIUM/ALBUTEROL (0.5MG/3MG) NEB INH SCH ×3 (04:18→09:40)
[2016-10-13] MEDS: SODIUM CHLORIDE 7% FOR INHALATION 4 ML NEB INH PRN (07:34)
[2016-10-13] MEDS ORDERED: POTASSIUM CHLORIDE 20 MEQ TABLET PO ONE (09:38)
[2016-10-13] MEDS: DULERA IH SCH (09:40)
[2016-10-13] MEDS: MAGNESIUM OXIDE 400 MG TABLET PO SCH (10:09)
[2016-10-13] MEDS: METHYLPREDNISOLONE PF 125MG/VIAL IVP SCH (10:09)
--- NOTE | 2016-10-13 11:57 | Discharge Summary ---
Providers Discharge Summary Date: 10/13/16 Date of admission: 10/11/16 14:37 Expected Date of Discharge: 10/13/16 Attending physician: CONSTANZA ANGEL Primary care physician: MELO POPE M.D. Physical Exam - Vital Signs Vital Signs: Vital Signs - Last 24 Hrs Temp Pulse Pulse Pulse Resp BP BP 10/13/16 09:43 100 H 18 10/13/16 09:27 98.1 F 117/72 10/13/16 09:00 98.1 F 107 H 18 117/72 10/13/16 05:00 97.8 F 90 20 115/63 10/13/16 04:21 87 18 10/13/16 01:00 97.8 F 84 18 117/73 10/12/16 21:13 104 H 18 10/12/16 21:00 88 16 10/12/16 20:00 97.5 F L 93 H 20 109/71 10/12/16 17:00 98.9 F 111 H 20 113/71 10/12/16 13:00 97.8 F 91 H 20 118/67 Pulse Ox 10/13/16 09:43 10/13/16 09:27 10/13/16 09:00 94 L 10/13/16 05:00 92 L 10/13/16 04:21 97 10/13/16 01:00 96 10/12/16 21:13 100 10/12/16 21:00 10/12/16 20:00 92 L 10/12/16 17:00 92 L 10/12/16 13:00 92 L - General General Appearance: Alert, Oriented x3, Cooperative, No acute distress Limitations: No limitations - Head Head exam: Atraumatic, Normocephalic, Normal inspection - Eye Eye exam: Normal appearance, PERRL - ENT ENT exam: Normal exam, Mucous membranes moist, Normal external ear exam, Normal orophraynx, TM's normal bilaterally Ear exam: Normal external inspection. negative: External canal tenderness Nasal Exam: Normal inspection. negative: Discharge, Sinus tenderness Mouth exam: Normal external inspection, Tongue normal Teeth exam: Normal inspection. negative: Dental caries Throat exam: Normal inspection. negative: Tonsillar erythema, Tonsillar exudate - Neck Neck exam: Normal inspection, Full ROM. negative: Tenderness - Respiratory Respiratory exam: Decreased breath sounds (R base.). negative: Normal lung sounds bilaterally, Rales, Respiratory distress, Rhonchi, Wheezes - Cardiovascular Cardiovascular Exam: Normal rhythm, Normal heart sounds, Tachycardia Peripheral Pulses: 2+: Dorsalis Pedis (R), Dorsalis Pedis (L) - GI/Abdominal GI/Abdominal exam: Soft, Normal bowel sounds. negative: Tenderness - Rectal Rectal exam: Deferred - exam: Deferred - Extremities Extremities exam: Normal inspection, Full ROM, Normal capillary refill. negative: Tenderness - Neurological Neurological exam: Alert, Normal gait, Oriented X3. negative: Abnormal gait, Motor sensory deficit Hospitalization - Hospitalization Admission Diagnosis: 1. COPD Exacerbation. - Problem List/Discharge Diagnosis (1) COPD exacerbation Current Visit: Yes Status: Acute Base Code: J44.1 - CHRONIC OBSTRUCTIVE PULMONARY DISEASE W (ACUTE) EXACERBATION Comment: 10/13/16- CXR: severe emphysema, NAP. normal WBC. afebrile. EKG: RBBB, NS. negative d-dimer. CE negative x 3. - 60 mg of Solu medrol QD, will convert to oral prednisone at time of discharge - Duo neb treatments Q4H scheduled, return to usual inhalers at time of discharge - sodium chloride 4ml INH BID PRN - 2 L's supplemental oxygen, will need to use while active based on home O2 qualifier - follow up PCP 1-2 weeks (2) DVT prophylaxis Current Visit: No Status: Acute Base Code: [id number] - Comment: 10/13/16- SCDs to be worn in bed. will continue to promote frequent ambulation. (3) Full code status Current Visit: No Status: Acute Base Code: Z78.9 - OTHER SPECIFIED HEALTH STATUS Comment: 10/13/16- Patient is full code - Hospitalization Course Disposition: Home, Self-Care Hospital Course: 65yo female with CC of shortness of breath. She is a former smoker (quit 2 years ago, 50+ year 2.5-3 ppd smoker) and had a history of COPD (advanced emphysema), arthritis, osteoporosis, anxiety and depression. Patient presented to the ED with a 2 day history of shortness of breath & chest tightness. She started experiencing increased SOB yesterday morning while vacuuming. She was not able to catch her breath after being seated for 10-15 minutes and became more anxious. Her chest tightness remained unchanged as well. She then decided to drive herself to our ED. While in the ED, patient was found to have room air oxygen saturation of 93% on RA. D-dimer negative. She had an EKG which showed NS w/ incomplete RBBB and cardiac enzymes were negative. Her CXR showed advanced emphysematous changes but was otherwise nap. WBC count normal and patient afebrile. 125 mg of IV solumedrol administered for COPD exacerbation, duo neb treatments ordered. Patient placed on telemetry and admitted for further medical management. 10/12/16- Patient states she is feeling better today. She says her shortness of breath has improved from yesterday with the supplemental oxygen and breathing treatments Q4H. She continues to report some chest pressure with deep inspiration. She denies chest pain, but continues to have a dry, non productive cough. She denies feeling chilled or warm. She is not short of breath while laying in bed, but gets winded easily going to the bathroom. Her O2 on RA dropped to 89% last night with ambulation. She uses 2L/min via NC at night. No supplemental O2 during the day unless she feels she needs it. Typically uses her nebulized treatments once every other day. PCP: Claudio Wirer: Dr. Rica Self Abnormal Labs: Abnormal Lab Results 10/12/16 10/12/16 Range/Units 09:05 09:05 RBC 3.69 L (3.80-5.40) M/uL Hgb 11.4 L (11.6-16.0) gm/dl Hct 32.5 L (35.0-47.0) % Lymphocytes 12.0 L (16-45) % Potassium 3.4 L (3.5-5.1) mmol/L Random Glucose 145 H (70-110) mg/dL Condition at Discharge: (2) Stable Discharge Medications - Discharge Medications Prescriptions: Prednisone [Prednisone 20Mg] 60 mg PO DAILY #15 tab Ropinirole HCl [Requip] 0.25 mg PO DAILY #30 tablet Sodium Chloride 7% For INH [Hyper-Walker] 4 ml INH BID PRN #240 ml PRN Reason: Respiratory Treatment Home Medications: Ambulatory Orders Albuterol Sulfate [Ventolin Hfa] 1 - 2 puff INH Q2HR PRN 07/02/14 [Last Taken 1 Day Ago ~10/10/16] Alendronate Sodium 1 tab PO WEEKLY 07/02/14 [Last Taken 1 Month Ago ~09/11/16] Mometasone/Formoterol [Dulera 200 Mcg/5 Mcg Inhaler] 2 puff IH BID 03/15/16 [ Last Taken 1 Day Ago ~10/10/16] Magnesium Oxide [Magnesium] 400 mg PO DAILY 03/16/16 [Last Taken 1 Day Ago ~] Tiotropium [place] [Spiriva] 1 cap IH DAILY #1 cap.w.dev 03/18/16 [Last Taken 1 Day Ago ~10/10/16] Albuterol Sulfate 0.083% [Neb] 3 ml NEB .EVERY 4-6 HOURS PRN #30 ml 04/28/16 [ Last Taken 1 Day Ago ~10/10/16] Phenylephrine/Dm/Acetaminop/GG [Severe Cold-Flu Caplet] 1 each PO Q8H PRN [Last Taken 1 Day Ago ~10/10/16] Guaifenesin [Mucinex] 1,200 mg PO QID 10/11/16 [Last Taken 1 Day Ago ~10/10/16] Prednisone [Prednisone 20Mg] 60 mg PO DAILY #15 tab 10/13/16 [Last Taken Unknown ] Ropinirole HCl [Requip] 0.25 mg PO DAILY #30 tablet 10/13/16 [Last Taken Unknown ] Sodium Chloride 7% For INH [Hyper-Walker] 4 ml INH BID PRN #240 ml 10/13/16 [Last Taken Unknown] Discharge Plan - Discharge Instructions Instructions: Prednisone (By mouth), Ropinirole (By mouth), Sodium Chloride ( By breathing), COPD (Chronic Obstructive Pulmonary Disease) (DC), How Your Lungs Work (DC), Nutrition Guidelines for People with COPD (DC) Additional Instructions: 2 Activity: Restful activity, no gardening, including picking up sticks or outside activity Increase activity as tolerated very slowly 2 Diet: As tolerated 2 Consults: [] 2 Follow Up: [With primary care physician within 10 days] 2 Dressing/Wound Care: (Type) (Change) 2 Additional: [] Continue home medications New medications Hyper-walker twice per day to help continue to break up mucous Prednisone 60mg by mouth daily Requip 0.25mg at bedtime Try [place] Instant Breakfast powder mixed with your milk at least 1 time daily-twice daily would be better in between meals as snacks return to the emergency room with any new or worsening symptoms
[2016-10-18] MEDS ORDERED: ALENDRONATE SODIUM PO SCH (10:00)
== END 2016-10-13 13:50 | disposition home or self-care (01) | DRG 192 ==
LOC: ER 10:16 → INTOOBSV 14:37 → OBSVTOIN 14:37 → MEDSURG 14:37
PROVIDERS: ADMIT Family Medicine; ATTEND Family Medicine
DX: J44.1 Chronic obstructive pulmonary disease with (acute) exacerbation (principal); Z87.891 Personal history of nicotine dependence; M81.0 Age-related osteoporosis without current pathological fracture; F41.8 Other specified anxiety disorders; Z78.9 Other specified health status
CPT/HCPCS: 99285 ×2; 94760; 96374; 82550; 82553; 84484; 80048; 85379; 85027; 83880; 71020; 94640 ×2; 93005; 93010; J2060; 94620; 99223; 99233; 99239; J2930; J7613

== ENCOUNTER 2018-09-27 17:43 | Observation (INO) | payer MEDICARE ==
[2018-09-27] MEDS ORDERED: IPRATROPIUM/ALBUTEROL (0.5MG/3MG) NEB INH ONE ×2 (17:47→17:49)
[2018-09-27] MEDS ORDERED: SODIUM CHLORIDE 0.9% 500 ML IV ONE (17:49)
[2018-09-27] MEDS ORDERED: METHYLPREDNISOLONE PF 125MG/VIAL IM ONE (17:49)
--- NOTE | 2018-09-27 17:55 | Emergency Department Record ---
History of Present Illness - General Chief Complaint: Shortness of breath Stated Complaint: COPD Time Seen by Provider: 09/27/18 17:48 Source: Patient, Family Mode of Arrival: Ambulatory Limitations: No limitations - History of Present Illness Initial Comments: 68 yo female presents not feeling well the last three hours. She feels short of breath, cough, weak, nauseated. She has COPD on home oxygen of 2 liters. On arrival on 2 liters she was in the low to mid 80's. Her daughter found her very weak at home, her lips appeared purple in color, and she was slow to respond. On arrival she is fully alert and coherent. She denies any headache, chest pain or fever. She does have a productive cough. On the car ride over she developed cramps in the abdomen. She has COPD, former smoker. No air conditioning at home. MD Complaint: Cough, Shortness of breath -: Hour(s) (3) Severity: Moderate, Severe Quality: Other Improves With: Nothing Worsens With: Coughing Known History Of: COPD Context: Other Associated Symptoms: Abdominal pain (cramps), Cough Treatments Prior to Arrival: Bronchodilator (earlier in the day) - Related Data Home Medications Medication Instructions Recorded Confirmed Last Taken Fluticasone/Salmeterol [Advair Hfa 1 puff IH ASDIR 09/27/18 09/27/18 Unknown 115-21 Mcg Inhaler] Ropinirole HCl [Requip] 0.25 mg PO QHS 09/28/18 09/28/18 Unknown Previous Rx's Medication Instructions Recorded Tiotropium [place] [Spiriva] 1 cap IH DAILY #1 cap.w.dev 03/18/16 Albuterol Sulfate 0.083% [Neb] 3 ml NEB .EVERY 4-6 HOURS PRN #30 04/28/16 [Albuterol Sulfate] ml Azithromycin 250 mg PO DAILY #6 tablet 09/28/18 Prednisone [Prednisone 10Mg] 10 mg PO ASDIR #30 tab 09/28/18 Allergies Allergy/AdvReac Type Severity Reaction Status Date / Time Penicillins Allergy Unknown PT UNSURE Verified 10/11/16 10:24 OF REACTION Review of Systems Constitutional: Reports: Malaise, Weakness. Denies: Chills, Fever Eyes: Denies: Eye discharge, Eye pain, Photophobia, Vision change ENT: Denies: Congestion, Throat pain Respiratory: Reports: Cough, Dyspnea, Wheezes. Denies: Hemoptysis, Stridor Cardiovascular: Denies: Chest pain, Edema, Palpitations, Syncope Endocrine: Reports: Fatigue. Denies: Polydipsia, Polyuria Gastrointestinal: Reports: Abdominal pain, Nausea. Denies: Diarrhea, Vomiting Genitourinary: Denies: Dysuria, Incontinence, Retention, Urgency Musculoskeletal: Denies: Arthralgia, Back pain, Myalgia Skin: Reports: Change in color (pale). Denies: Bruising, Rash Neurological: Reports: Weakness (generalized). Denies: Confusion, Headache Psychiatric: Denies: Anxiety Hematological/Lymphatic: Denies: Blood Clots, Easy bleeding, Easy bruising Past Medical History - SOCIAL HISTORY Smoking Status: Former smoker - RESPIRATORY Hx Respiratory Disorders: Yes Hx Bronchitis: Yes Hx COPD: Yes - CARDIOVASCULAR Hx Cardio Disorders: No - NEURO Hx Neuro Disorders: No - GI Hx GI Disorders: No - Hx Genitourinary Disorders: No - ENDOCRINE Hx Endocrine Disorders: No - MUSCULOSKELETAL Hx Musculoskeletal Disorders: Yes Hx Arthritis: Yes Hx Osteoporosis: Yes - PSYCH Hx Psych Problems: Yes Hx Anxiety: Yes Hx Depression: Yes - HEMATOLOGY/ONCOLOGY Hx Hematology/Oncology Disorders: No Family Medical History Hx Cancer: Father, Grandparents Hx Heart Disease: Father Physical Exam - General General Appearance: Alert, Oriented x3, Cooperative, Mild distress Limitations: No limitations, Other (No confusion on arrival) - Head Head exam: Atraumatic, Normocephalic, Normal inspection - Eye Eye exam: Normal appearance, PERRL. negative: Conjunctival injection, Scleral icterus - ENT ENT exam: Normal exam, Mucous membranes moist Ear exam: Normal external inspection Nasal Exam: Normal inspection Mouth exam: Normal external inspection Teeth exam: Normal inspection Throat exam: Normal inspection - Neck Neck exam: Normal inspection. negative: Lymphadenopathy, Tenderness - Respiratory Respiratory exam: Accessory muscle use, Decreased breath sounds, Prolonged expiratory, Respiratory distress (mild increase in work of breathing), Rhonchi, Wheezes. negative: Normal lung sounds bilaterally - Cardiovascular Cardiovascular Exam: Normal rhythm, Normal heart sounds, Tachycardia Peripheral Pulses: 2+: Radial (R), Radial (L) - GI/Abdominal GI/Abdominal exam: Soft. negative: Distended, Guarding, Rebound, Rigid, Tenderness - Rectal Rectal exam: Deferred - exam: Deferred - Extremities Extremities exam: Normal inspection. negative: Normal capillary refill, Pedal edema, Tenderness - Back Back exam: Denies: CVA tenderness (R), CVA tenderness (L) - Neurological Neurological exam: Alert, Oriented X3 - Psychiatric Psychiatric exam: Normal affect, Normal mood - Skin Skin exam: Dry, Intact, Pallor, Warm Course - Reevaluation(s) Reevaluation #1: 09/27/18 18:00 EKG #1: Rate: Rhythm: [place]: Intervals: ST segments: Prior: On recheck her oxygen saturation level increased to 98% after the treatment Clinical improvement with decreases work of breathing 09/27/18 18:15 EKG #1: 17:57 Rate: 98 Rhythm: sinus with a RBBB [place]: normal Intervals: RBBB ST segments: CW RBBB Prior: 10/12/16 RBBB unchanged EKG 09/27/18 18:16 EMR reviewed. Normal Lexiscan 06/09/17 09/27/18 18:23 The CBC was reviewed. No acute changes The CMP was reviewed. No significant abnormality The Troponin is normal The Pro BNP is 151 09/27/18 18:26 The patients work of breathing continues to improve. Saturations remain in the mid 90's. 09/27/18 18:40 CXR was read as hyperinflation. No definite infiltrate. 09/27/18 18:[address] Roy for admission were called. Waiting for call back. Medical Decision Making - Lab Data Result diagrams: 09/27/18 17:53 09/28/18 06:25 Disposition Disposition: Admit Clinical Impression: COPD exacerbation, Hypoxemia Disposition: Still a Patient at [facility] Decision to Admit: Admit from ER Decision to Admit Date: 09/27/18 Decision to Admit Time: 17:30 Condition: (1) Good Time of Disposition: 18:41 Quality - Quality Measures Quality Measures: N/A - Blood Pressure Screening Does Patient Have Any of the Following: Active Dx of HTN Blood Pressure Classification: Normal BP Reading Systolic Measurement: 115 Diastolic Measurement: 45 Screening for High Blood Pressure: Patient Exclusion, Hx of HTN [[id number]]
[2018-09-27 17:57] LABS: ABSOLUTE NEUTROPHIL COUNT 6.09; BASO % 0.2 % (0-6); EOS % 0.6 % (0-6); GRAN % 72.9 % (47-80); HEMATOCRIT 36.1 % (35.0-47.0); HEMOGLOBIN 12.4 gm/dl (11.6-16.0); LYMPH % 12.9 % (16-45); MEAN CELL VOLUME 86.2 fl (81-97); MEAN CORPUSCULAR HEMOGLOBIN 29.6 pg (27-33); MEAN CORPUSCULAR HGB CONC 34.3 g/dl (32-36); MONO % 13.4 % (0-9); PLATELET COUNT 272 K/uL (130-400); RED BLOOD COUNT 4.19 M/uL (3.80-5.40); WHITE BLOOD COUNT W/O DIFF 8.4 K/uL (4.2-12.2)
[2018-09-27 18:06] LABS: BLOOD UREA NITROGEN 7 mg/dL (8-23); CREATININE 0.8 mg/dL (0.5-0.9); EST GLOMERULAR FILTRATION RATE > 60 mL/min
[2018-09-27 18:07] LABS: LIPASE 19 U/L (13-60)
[2018-09-27 18:08] LABS: GLUCOSE,RANDOM 145 mg/dL (74-109)
[2018-09-27 18:09] LABS: PARTIAL THROMBOPLASTIN TIME 24.7 SECONDS (24.5-39.1); PROTHROMBIN TIME (PATIENT) 10.7 SECONDS (9.5-12.1)
[2018-09-27 18:11] LABS: ALB/GLOB RATIO 1.6 (1.1-1.8); ALBUMIN 4.3 g/dL (4.0-5.0); ALKALINE PHOSPHATASE 79 U/L (35-104); ALT/SGPT 20 U/L (<33); AST/SGOT 26 U/L (10.0-35.0)
[2018-09-27] MEDS ORDERED: METHYLPREDNISOLONE PF 125MG/VIAL IVP SCH (19:59)
[2018-09-27] MEDS ORDERED: ALBUTEROL SULFATE (0.083%) 2.5 MG/3 ML NEB INH PRN ×2 (19:59→20:36)
[2018-09-27] MEDS ORDERED: 0.9 % SODIUM CHLORIDE 1000ML 1,000 ML IV PRN ×2 (19:59→20:36)
[2018-09-27] MEDS ORDERED: ACETAMINOPHEN 325 MG TAB PO PRN ×2 (19:59→20:36)
[2018-09-27] MEDS ORDERED: CEFTRIAXONE SODIUM 1 GM in 0.9 % SODIUM CHLORIDE 100ML 100 ML IVPB SCH (19:59)
[2018-09-27] MEDS ORDERED: AZITHROMYCIN 500 MG TABLET PO SCH ×2 (19:59→20:15)
[2018-09-27] MEDS: METHYLPREDNISOLONE PF 125MG/VIAL IVP SCH (22:08)
[2018-09-27] MEDS: IPRATROPIUM/ALBUTEROL (0.5MG/3MG) NEB INH SCH (22:27)
[2018-09-27] MEDS ORDERED: IPRATROPIUM/ALBUTEROL (0.5MG/3MG) NEB INH SCH (23:00)
[2018-09-28] MEDS: METHYLPREDNISOLONE PF 125MG/VIAL IVP SCH (03:41)
[2018-09-28] MEDS: IPRATROPIUM/ALBUTEROL (0.5MG/3MG) NEB INH SCH ×2 (06:49→09:42)
[2018-09-28 07:24] LABS: BLOOD UREA NITROGEN 10 mg/dL (8-23); CREATININE 0.5 mg/dL (0.5-0.9); EST GLOMERULAR FILTRATION RATE > 60 mL/min
[2018-09-28 07:27] LABS: GLUCOSE,RANDOM 147 mg/dL (74-109)
[2018-09-28] MEDS ORDERED: ENOXAPARIN 100 MG/ML SYR SQ ONE (07:51)
--- NOTE | 2018-09-28 07:56 | Discharge Note ---
VTE H&P Assessment - Risk for VTE Risk for VTE: Yes Risk Level: Moderate Risk Assessment Date: 09/28/18 Risk Assessment Time: 07:51 VTE Orders Placed or Will Be Placed: Yes Discharge Medications - Discharge Medications Prescriptions: Azithromycin 250 mg PO DAILY #6 tablet Prednisone [Prednisone 10Mg] 10 mg PO ASDIR #30 tab Home Medications: Ambulatory Orders Albuterol Sulfate [Ventolin Hfa] 1 - 2 puff INH Q2HR PRN 07/02/14 [Last Taken 1 Day Ago ~10/10/16] Tiotropium [place] [Spiriva] 1 cap IH DAILY #1 cap.w.dev 03/18/16 [Last Taken 1 Day Ago ~10/10/16] Albuterol Sulfate 0.083% [Neb] [Albuterol Sulfate] 3 ml NEB .EVERY 4-6 HOURS PRN #30 ml 04/28/16 [Last Taken 1 Day Ago ~10/10/16] Ropinirole HCl [Requip] 0.25 mg PO DAILY #30 tablet 10/13/16 [Last Taken Unknown] Fluticasone/Salmeterol [Advair Hfa 115-21 Mcg Inhaler] 1 puff IH ASDIR 09/27/18 [Last Taken Unknown] Azithromycin 250 mg PO DAILY #6 tablet 09/28/18 [Last Taken Unknown] Prednisone [Prednisone 10Mg] 10 mg PO ASDIR #30 tab 09/28/18 [Last Taken Unknown] Discharge Note - Date Date of Discharge Note: 09/28/18 Disposition: Home, Self-Care Condition: (1) Good Additional Instructions: follow up with Dr. Hernandes in 5-7 days drink fluids to hydrate well return to ED if worse use home oxygen 2 liters per minute Forms: Patient Portal Access Activity at Discharge: Increase Activity as Tolerated Diet at Discharge: Regular Diet
[2018-09-28] MEDS ORDERED: UMECLIDINIUM BROMIDE (INCRUSE) 62.5MCG IH SCH (10:00)
[2018-09-28] MEDS ORDERED: ROPINIROLE HCL 0.25 MG PO SCH (10:00)
[2018-09-28] MEDS ORDERED: TIOTROPIUM BROMIDE IH SCH (10:00)
[2018-09-28] MEDS ORDERED: METHYLPREDNISOLONE PF 125MG/VIAL IVP SCH (14:00)
--- NOTE | 2018-09-28 15:31 | History and Physical Report ---
DATE: 09/28/2018 at 7:37 a.m. CHIEF COMPLAINT: Dyspnea. HISTORY OF PRESENT ILLNESS: This 68-year-old female presented to the emergency department. She became short of breath about 3 p.m. on the day of admission. She also noticed that she has had some allergy symptoms in the last couple of days, more than usual, congestion, and she had some abdominal pain and vomited x1 coming to the emergency department. It was a very hot, humid day. She was seen in the emergency department by Dr. Rhodes, treated with DuoNeb, Solu-Medrol, antibiotics, and oxygen. She is on home oxygen at 2L/min and she has been on home oxygen for 2 years. Upon my arrival today, she was doing much better. She states that she is back to her baseline moving around the room without difficulties. She would like to go home. PAST MEDICAL HISTORY: COPD, former smoker starting at 10 years of age and smoked 2 packs a day, quit in 2016. She has arthritis, osteoarthritis, some anxiety and depression. FAMILY HISTORY: Cancer in father and grandparents, heart disease with the father. MEDICATIONS: 1. Spiriva 1 a day. 2. Requip 0.25 at h.s. 3. Advair 115/21 one puff b.i.d. 4. Ventolin 2 puffs q.4 h. p.r.n. 5. Albuterol nebulization 3 mL every 4 hours p.r.n. ALLERGIES: PENICILLIN. PAST SURGICAL HISTORY: Right breast lumpectomy, benign. Bilateral cataracts. REVIEW OF SYSTEMS: HEENT: Some congestion, postnasal drainage, slight cough. Cardiovascular: No chest pain, palpitations, or arrhythmia. No LA history. Respiratory: COPD, heavy smoker, 50 years of smoking. She has about a 85-axhi-xyap history. No sleeping problems. Gastrointestinal: She did have some abdominal cramping and vomited once, dry heaves when she got to the emergency department. No nausea, vomiting, diarrhea at this time. Genitourinary: No dysuria, hematuria, frequency, or burning on urination. Musculoskeletal: She does have arthritis in the low back. Neurological: No CVA, paralysis, or paresthesias. Gynecological: She had a lumpectomy which was benign. Otherwise, no pelvic pain or abnormal vaginal bleeding. Endocrine: No diabetes or thyroid disease. Integument: No rash, ulcers, change in moles, or yellow skin. PHYSICAL EXAMINATION: VITALS: Height 5 feet 6 inches, weight 100 pounds. When she came into the emergency department, she was 86% on 2L O2, rapidly went up into the 90s after treatment. Blood pressure 124/71, respiratory rate 18, pulse 80, height 5 feet 6 inches. Most recent pulse ox 95% on 2L O2. HEENT: Pupils are equal, round, and reactive to light and accommodation. Extraocular muscles are intact. Fundoscopic exam is benign. Tympanic membranes are basurto. No oral lesions. NECK: Supple. No jugular venous distention. No hepatojugular reflux. No carotid bruits. Thyroid is smooth. CARDIOVASCULAR: Regular rate and rhythm without clicks, rubs, or gallops. RESPIRATORY: Decreased breath sounds bilaterally. Some slight rales in the left lower lobe. ABDOMEN: Soft, nontender. No hepatosplenomegaly, no masses, no tenderness. Bowel sounds are active. EXTREMITIES: No pitting edema. No cyanosis, no clubbing. Full range of motion. Peripheral pulses are good. No edema. Joints moving adequately. BREASTS: Deferred. RECTAL: Deferred. GENITALIA: Deferred. NEUROLOGIC: Cranial nerves II-XII intact. No gross defects. Sensation normal, strength normal. Deep tendon reflexes equal bilaterally with Babinski negative. MENTAL STATUS: Alert and oriented x3. SKIN: No skin lesions noted. No rashes. IMPRESSION: 1. Acute exacerbation of chronic obstructive pulmonary disease. 2. Acute bronchitis, possible early left lower lobe pneumonia. 3. History of smoking, stopped in 2016. 4. Hypoxia, on home oxygen at 2L/min nasal cannula. PLAN: Change to observation because she is ready to go home. Follow up with Dr. Barbara Burton. Will send her home on prednisone tapering course from 40 mg down to 10 mg starting at 40 mg a day for 3 days, 30 mg a day for 3 days, 20 m g a day for 3 days, and 10 mg a day for 3 days. Z-Stan will be given 1 pill a day. She has already had the loading dose. continue her home medications of Spiriva once a day, Advair twice a day, albuterol nebulizers at home q.4 h. or when away, Proventil inhaler 2 puffs q.4 h. or if necessary q.2 h. p.r.n. Home oxygen at 2L/min nasal cannula. MTDD
--- NOTE | 2018-09-28 15:50 | Discharge Summary ---
DISCHARGE DIAGNOSES: 1. Acute exacerbation of chronic obstructive pulmonary disease. 2. Acute bronchitis, possible early left lower lobe pneumonia. 3. Chronic obstructive pulmonary disease. 4. Ex-smoker, quit in 2016. 5. Hypoxia, on home oxygen at 2L/min nasal cannula. 6. Osteoarthritis. ATTENDING PHYSICIAN: Shashi Roy DO REASON FOR HOSPITALIZATION: Dyspnea, cough, congestion, hypoxia on 2L/min nasal cannula at home. She also had some abdominal cramping and vomited x1. Very hot and humid day. The patient states that she is going to be going to her daughter's house with air conditioning. The patient came in short of breath, purple lips. Seen in the emergency department by Dr. Rhodes, admitted to the hospital for COPD exacerbation, hypoxia, possible early pneumonia. Started on Rocephin and azithromycin. SIGNIFICANT FINDINGS: Chest x-ray showing either left lower lobe atelectasis versus infiltrate but otherwise hyperinflation of the lungs. White cell count 8400, brain natriuretic peptide 150, troponin x2 negative, potassium slightly slow in the emergency department at 3.2. We will repeat the potassium before she goes home to make sure it came up and it may be just because of her breathing that it was down. THERAPY PROVIDED: The patient was given Solu-Medrol, breathing treatments, oxygen therapy. Given IV fluids in the emergency department. She was started on Rocephin 1 g, azithromycin 500 mg daily, DuoNeb treatments, Solu-Medrol 125 in the emergency department and 60 mg q.8 h. HOSPITAL COURSE: The patient got better remarkably quickly and is walking around the room back to her baseline. CONDITION ON DISCHARGE: Much improved. DISCHARGE INSTRUCTIONS: Follow up with Dr. Burton in 5-7 days. Azithromycin 250 mg daily for 6 days. Prednisone taper 40 mg a day for 3 days, 30 mg a day for 3 days, 20 mg a day for 3 days, 10 mg a day for 3 days. continue the albuterol nebulizations q.4 h. while at home and then use the inhaler albuterol 2 puffs q.4 h. while away. Continue Advair twice a day and Spiriva once a day. Home oxygen at 2L/min nasal cannula. Return to the emergency department if worse. The patient is planning to go to her daughter's house where there is air conditioning. [facility] HOSPITALIsabella
--- NOTE | 2018-09-28 16:23 | RADIOLOGY REPORT ---
STUDY: Single view chest. CLINICAL HISTORY: Difficulty in breathing starting today. TECHNIQUE: AP portable chest. COMPARISON: Two view chest 10/11/2016. FINDINGS: Heart size is normal. Minor streaky atelectasis or infiltrate in the left base. Lungs were somewhat hyperinflated which may represent underlying COPD. No definite pleural effusion or pneumothorax evident. IMPRESSION: 1. Lungs appear somewhat hyperinflated suggesting COPD. 2. Mild streaky atelectasis or infiltrate in left base laterally. MTDD
[2018-09-28] MEDS ORDERED: CEFTRIAXONE 1GM/50ML BAG 1 GM/50 ML BAG IVPB SCH (20:00)
[2018-09-28] MEDS ORDERED: ROPINIROLE HCL 1 MG TABLET PO SCH (22:00)
== END 2018-09-28 10:32 | disposition home or self-care (01) ==
LOC: ER 17:43 → MEDSURG 20:35 → INTOOBSV 20:35
PROVIDERS: ADMIT Emergency Medicine; ATTEND Emergency Medicine
DX: J44.1 Chronic obstructive pulmonary disease with (acute) exacerbation (principal); R09.02 Hypoxemia; J40 Bronchitis, not specified as acute or chronic; R05 Cough; R53.1 Weakness; M19.90 Unspecified osteoarthritis, unspecified site; M81.0 Age-related osteoporosis without current pathological fracture; Z87.891 Personal history of nicotine dependence
CPT/HCPCS: 83690; 85025; 85730; 85610; 80048; 80053; 84484 ×2; 83880; 71045; 94640 ×2; 94664; 93005; 93010; G0378 ×2; 96372; 99220; 99285; J2930

== ENCOUNTER 2019-02-07 10:57 | Inpatient (IN) | payer MEDICARE ==
[2019-02-07] MEDS ORDERED: IPRATROPIUM/ALBUTEROL (0.5MG/3MG) NEB INH ONE ×2 (11:20→13:29)
[2019-02-07 11:30] LABS: ABSOLUTE NEUTROPHIL COUNT 15.15; BASO % 0.1 % (0-6); EOS % 0.2 % (0-6); HEMATOCRIT 39.3 % (35.0-47.0); HEMOGLOBIN 12.9 gm/dl (11.6-16.0); LYMPH % 4.5 % (16-45); MEAN CELL VOLUME 87.9 fl (81-97); MEAN CORPUSCULAR HEMOGLOBIN 28.9 pg (27-33); MEAN CORPUSCULAR HGB CONC 32.8 g/dl (32-36); MEAN PLATELET VOLUME 9.7 fl (7.4-10.4); MONO % 10.2 % (0-9); PLATELET COUNT 276 K/uL (130-400); RED BLOOD COUNT 4.47 M/uL (3.80-5.40); RED CELL DISTRIBUTION WIDTH 14.6 % (11.5-14.5); WHITE BLOOD COUNT W/O DIFF 17.8 K/uL (4.2-12.2)
[2019-02-07 11:40] LABS: BLOOD UREA NITROGEN 12 mg/dL (8-23); CREATININE 0.7 mg/dL (0.5-0.9); EST GLOMERULAR FILTRATION RATE > 60 mL/min; TOTAL PROTEIN 7.5 g/dL (6.6-8.7)
[2019-02-07 11:42] LABS: GLUCOSE,RANDOM 116 mg/dL (74-109)
[2019-02-07 11:45] LABS: ALB/GLOB RATIO 1.3 (1.1-1.8); ALBUMIN 4.3 g/dL (4.0-5.0); ALKALINE PHOSPHATASE 69 U/L (35-104); ALT/SGPT 11 U/L (<33); AST/SGOT 20 U/L (10.0-35.0)
--- NOTE | 2019-02-07 11:47 | Emergency Department Record ---
History of Present Illness - General Chief Complaint: Shortness of breath Stated Complaint: ANEUDY Time Seen by Provider: 02/07/19 11:19 Source: Patient Mode of Arrival: Wheelchair Limitations: No limitations - History of Present Illness Initial Comments: pt is increasingly sob and has a pain in the r side of her upper back that gets worse w inspiration. she was recently on antibiotics and prednisone for her cough. she has been running a fever of 101 MD Complaint: Cough, Shortness of breath Onset/Timin -: Hour(s) Severity scale (1-10): 6 Consistency: Constant Improves With: Nothing Worsens With: Nothing Known History Of: COPD Associated Symptoms: Cough Treatments Prior to Arrival: None - Related Data Home Oxygen Therapy: Yes Home Oxygen Amount: 2 Liters Previous Rx's Medication Instructions Recorded Tiotropium [place] [Spiriva] 1 cap IH DAILY #1 cap.w.dev 03/18/16 Albuterol Sulfate 0.083% [Neb] 3 ml NEB .EVERY 4-6 HOURS PRN #30 04/28/16 [Albuterol Sulfate] ml Allergies Allergy/AdvReac Type Severity Reaction Status Date / Time Penicillins Allergy Unknown PT UNSURE Verified 10/11/16 10:24 OF REACTION Travel Screening - Travel/Exposure Within Last 30 Days Have you traveled within the last 30 days?: No Review of Systems Reviewed: No additional complaints except as noted below Constitutional: Reports: As per HPI. Denies: Chills, Fever, Malaise, Night sweats, Weakness, Weight change Eyes: Reports: As per HPI. Denies: Eye discharge, Eye pain, Photophobia, Vision change ENT: Reports: As per HPI. Denies: Congestion, Dental pain, Ear pain, Epistaxis, Hearing loss, Throat pain Respiratory: Reports: As per HPI, Cough. Denies: Dyspnea, Hemoptysis, Stridor, Wheezes Cardiovascular: Reports: As per HPI. Denies: Arrhythmia, Chest pain, Dyspnea on exertion, Edema, Murmurs, Orthopnea, Palpitations, Paroxysmal nocturnal dyspnea, Rheumatic Fever, Syncope Endocrine: Reports: As per HPI. Denies: Fatigue, Heat or cold intolerance, Polydipsia, Polyuria Gastrointestinal: Reports: As per HPI. Denies: Abdominal pain, Constipation, Diarrhea, Hematemesis, Hematochezia, Melena, Nausea, Vomiting Genitourinary: Reports: As per HPI. Denies: Abnormal menses, Discharge, Dyspareunia, Dysuria, Frequency, Hematuria, Incontinence, Retention, Urgency Musculoskeletal: Reports: As per HPI. Denies: Arthralgia, Back pain, Gout, Joint swelling, Myalgia, Neck pain Skin: Reports: As per HPI. Denies: Bruising, Change in color, Change in hair/nails, Lesions, Pruritus, Rash Neurological: Reports: As per HPI. Denies: Abnormal gait, Confusion, Headache, Numbness, Paresthesias, Seizure, Tingling, Tremors, Vertigo, Weakness Psychiatric: Reports: As per HPI. Denies: Anxiety, Auditory hallucinations, Depression, Homicidal thoughts, Suicidal thoughts, Visual hallucinations Hematological/Lymphatic: Reports: As per HPI. Denies: Anemia, Blood Clots, Easy bleeding, Easy bruising, Swollen glands Past Medical History - SOCIAL HISTORY Smoking Status: Former smoker - RESPIRATORY Hx Respiratory Disorders: Yes Hx Bronchitis: Yes Hx COPD: Yes - CARDIOVASCULAR Hx Cardio Disorders: No - NEURO Hx Neuro Disorders: No - GI Hx GI Disorders: No - Hx Genitourinary Disorders: No - ENDOCRINE Hx Endocrine Disorders: No - MUSCULOSKELETAL Hx Musculoskeletal Disorders: Yes Hx Arthritis: Yes Hx Osteoporosis: Yes - PSYCH Hx Psych Problems: Yes Hx Anxiety: Yes Hx Depression: Yes - HEMATOLOGY/ONCOLOGY Hx Hematology/Oncology Disorders: No Family Medical History Any Significant Family History?: Yes Hx Cancer: Father, Grandparents Hx Heart Disease: Father Physical Exam - General General Appearance: Alert, Oriented x3, Cooperative, Mild distress - Head Head exam: Normal inspection - Eye Eye exam: Normal appearance, PERRL, EOMI Pupils: Normal accommodation - ENT ENT exam: Normal exam, Mucous membranes moist, Normal external ear exam, Normal orophraynx Ear exam: Normal external inspection. negative: External canal tenderness Nasal Exam: Normal inspection. negative: Discharge, Sinus tenderness Mouth exam: Normal external inspection, Tongue normal Teeth exam: Normal inspection. negative: Dental caries Throat exam: Normal inspection. negative: Tonsillar erythema, Tonsillar exudate - Neck Neck exam: Normal inspection, Full ROM. negative: Tenderness - Respiratory Respiratory exam: Rales, Respiratory distress - Cardiovascular Cardiovascular Exam: Normal rhythm, Normal heart sounds, Tachycardia - GI/Abdominal GI/Abdominal exam: Soft, Normal bowel sounds. negative: Tenderness - Rectal Rectal exam: Deferred - exam: Deferred - Extremities Extremities exam: Normal inspection, Full ROM, Normal capillary refill. negative: Tenderness - Back Back exam: Reports: Normal inspection, Full ROM. Denies: Muscle spasm, Rash noted, Tenderness - Neurological Neurological exam: Alert, CN II-XII intact, Normal gait, Oriented X3 - Psychiatric Psychiatric exam: Normal affect, Normal mood - Skin Skin exam: Dry, Intact, Normal color, Warm Course Vital Signs 02/07/19 11:00 Temperature 99.3 F Pulse Rate 125 H Respiratory 22 Rate Blood Pressure 119/72 Pulse Ox 95 Medical Decision Making - Lab Data Result diagrams: 02/07/19 11:10 02/07/19 11:10 Lab Results 02/07/19 02/07/19 Range/Units 11:10 11:10 WBC 17.8 H (4.2-12.2) K/uL RBC 4.47 (3.80-5.40) M/uL Hgb 12.9 (11.6-16.0) gm/dl Hct 39.3 (35.0-47.0) % MCV 87.9 (81-97) fl MCH 28.9 (27-33) pg MCHC 32.8 (32-36) g/dl RDW 14.6 H (11.5-14.5) % Plt Count 276 (130-400) K/uL MPV 9.7 (7.4-10.4) fl Lymphocytes % 4.5 L (16-45) % Monocytes % 10.2 H (0-9) % Eosinophils % 0.2 (0-6) % Basophils % 0.1 (0-6) % Absolute Neutrophils 15.15 Sodium 136 (136-145) mmol/L Potassium 3.7 (3.4-4.5) mmol/L Chloride 96 L (98-107) mmol/L Carbon Dioxide 22.0 (22-29) mmol/L Anion Gap 18.0 H (7-16) BUN 12 (8-23) mg/dL Creatinine 0.7 (0.5-0.9) mg/dL Estimated GFR > 60 mL/min Calcium 9.4 (8.8-10.2) mg/dL Total Bilirubin 0.90 (0.2-1.0) mg/dL Total Protein 7.5 (6.6-8.7) g/dL Disposition Disposition: Admit Clinical Impression: Bronchitis, Acute exacerbation of chronic obstructive pulmonary disease (COPD) Fever Qualifiers: Fever type: unspecified Qualified Code(s): R50.9 - Fever, unspecified Disposition: Still a Patient at [facility] Decision to Admit: Admit from ER Decision to Admit Date: 02/07/19 Decision to Admit Time: 15:31 Forms: Patient Portal Access Quality - Quality Measures Quality Measures: N/A - Blood Pressure Screening Does Patient Have Any of the Following: No Blood Pressure Classification: Normal BP Reading Systolic Measurement: 119 Diastolic Measurement: 72 Screening for High Blood Pressure: < Normal BP, F/U Not Required > [G8783]
[2019-02-07 11:53] LABS: PLATELET ESTIMATE NORMAL (NORMAL)
[2019-02-07 11:54] LABS: ANISOCYTOSIS 1+
--- NOTE | 2019-02-07 13:05 | RADIOLOGY REPORT ---
EXAMINATION: Two View Chest Radiographs EXAM DATE: 02/07/2019 12:40 PM TECHNIQUE: Frontal and lateral views INDICATION: sob COMPARISON: September 27, 2018 ENCOUNTER: Not applicable FINDINGS: Severe diffuse pulmonary emphysema. Right apical scarring. No focal airspace consolidation. No sizabl e pleural effusions. Cardiomediastinal silhouette and pulmonary vasculature within normal limits. Dif fuse osteopenia. Hyperinflation. IMPRESSION: Severe pulmonary emphysema/COPD. Right apical scarring. Dictated by: Julio Saucedo DO on 02/07/2019 1:03 PM. .
[2019-02-07] MEDS ORDERED: METHYLPREDNISOLONE PF 125MG/VIAL IVP ONE (13:28)
[2019-02-07] MEDS ORDERED: ACETAMINOPHEN 500 MG TABLET PO ONE (14:00)
[2019-02-07 14:22] LABS: INFLUENZA A NEGATIVE (NEGATIVE); INFLUENZA B NEGATIVE (NEGATIVE)
--- NOTE | 2019-02-07 14:59 | CT ANGIOGRAM REPORT ---
EXAMINATION: CT Angiography of the Thorax EXAM DATE: 02/07/2019 2:48 PM TECHNIQUE: Standard protocol CT angiogram images were obtained through the chest following the admini stration of intravenous contrast. Coronal and sagittal MIP 3-D reformations were performed. IV Contrast: The amount and type of contrast are recorded in the medical record. INDICATION: chest pain. COMPARISON: None ENCOUNTER: Not applicable FINDINGS: Pulmonary Artery: No pulmonary embolism is present. Aorta: No thoracic aortic aneurysm or dissection is present. Right Heart Strain: None. Heart : There is no pericardial effusion. Yessica and Mediastinum: No lymphadenopathy. Lung Parenchyma: Severe emphysematous changes. Right apical pleural thickening and upper lobe scarri ng noted. Subsegmental atelectasis and interstitial infiltrates/fibrosis in the lung bases. Central Airways: Normal. Pleural Effusion: None. Upper Abdomen: Unremarkable. Musculoskeletal and Chest Wall: Unremarkable. IMPRESSION: No CT evidence for acute pulmonary emboli. Severe emphysematous changes. Right upper lobe and apical scarring noted. No evidence of mediastinal lymphadenopathy or hilar mass. Dictated by: Prem Patel MD on 02/07/2019 2:48 PM. .
[2019-02-07] MEDS ORDERED: KETOROLAC 30 MG/ML VIAL IVP ONE (15:21)
[2019-02-07] MEDS ORDERED: LEVOFLOXACIN 250MG IVPB 250 MG/50 ML BAG IVPB ONE (15:26)
[2019-02-07] MEDS ORDERED: LEVOFLOXACIN 500MG IVPB 500 MG/100 ML BAG IVPB ONE (15:34)
[2019-02-07 15:35] LABS: URINE APPEARANCE CLEAR; URINE BILIRUBIN NEGATIVE (NEGATIVE); URINE BLOOD NEGATIVE (NEGATIVE); URINE COLOR YELLOW; URINE GLUCOSE (UA) NEGATIVE (NEGATIVE); URINE KETONE 40 mg/dL (NEGATIVE); URINE LEUKOCYTE ESTERASE NEGATIVE (NEGATIVE); URINE NITRITE NEGATIVE (NEGATIVE); URINE PROTEIN NEGATIVE (NEGATIVE); URINE UROBILINOGEN 0.2 E.U./dL (0.20 - 1.00)
[2019-02-07] MEDS ORDERED: ACETAMINOPHEN 500 MG TABLET PO PRN (16:12)
[2019-02-07] MEDS ORDERED: IPRATROPIUM/ALBUTEROL (0.5MG/3MG) NEB INH PRN (16:12)
[2019-02-07] MEDS ORDERED: ALBUTEROL SULFATE (0.083%) 2.5 MG/3 ML NEB INH PRN ×2 (16:12→19:28)
[2019-02-07] MEDS ORDERED: METHYLPREDNISOLONE PF 125MG/VIAL IVP SCH (19:30)
[2019-02-07] MEDS ORDERED: 0.9 % SODIUM CHLORIDE 1,000 ML BAG IV ONE (20:48)
[2019-02-07] MEDS: METHYLPREDNISOLONE PF 125MG/VIAL IVP SCH (21:04)
[2019-02-07] MEDS: ROPINIROLE HCL 1 MG TABLET PO SCH (21:06)
[2019-02-07] MEDS ORDERED: 0.9 % SODIUM CHLORIDE 1000ML 1,000 ML IV PRN (22:05)
[2019-02-07] MEDS: IPRATROPIUM/ALBUTEROL (0.5MG/3MG) NEB INH SCH (22:15)
[2019-02-08] MEDS: METHYLPREDNISOLONE PF 125MG/VIAL IVP SCH ×3 (05:38→23:01)
[2019-02-08] MEDS: IPRATROPIUM/ALBUTEROL (0.5MG/3MG) NEB INH SCH ×5 (05:44→22:04)
[2019-02-08] MEDS ORDERED: 0.9 % SODIUM CHLORIDE 1000ML 1,000 ML IV PRN (08:34)
[2019-02-08] MEDS ORDERED: METHYLPREDNISOLONE PF 125MG/VIAL IVP SCH (10:00)
[2019-02-08 10:13] LABS: ABSOLUTE NEUTROPHIL COUNT 13.64; HEMATOCRIT 32.6 % (35.0-47.0); HEMOGLOBIN 10.5 gm/dl (11.6-16.0); MEAN CELL VOLUME 87.9 fl (81-97); MEAN CORPUSCULAR HEMOGLOBIN 28.3 pg (27-33); MEAN CORPUSCULAR HGB CONC 32.2 g/dl (32-36); MEAN PLATELET VOLUME 9.8 fl (7.4-10.4); PLATELET COUNT 234 K/uL (130-400); RED BLOOD COUNT 3.71 M/uL (3.80-5.40); RED CELL DISTRIBUTION WIDTH 14.2 % (11.5-14.5); WHITE BLOOD COUNT W/O DIFF 14.1 K/uL (4.2-12.2)
[2019-02-08 10:35] LABS: PLATELET ESTIMATE NORMAL (NORMAL)
[2019-02-08] MEDS: LEVOFLOXACIN 500MG IVPB 500 MG/100 ML BAG IVPB SCH (15:40)
[2019-02-08] MEDS: ROPINIROLE HCL 1 MG TABLET PO SCH (23:01)
[2019-02-09] MEDS: IPRATROPIUM/ALBUTEROL (0.5MG/3MG) NEB INH SCH ×5 (05:43→21:20)
[2019-02-09] MEDS: METHYLPREDNISOLONE PF 125MG/VIAL IVP SCH (06:26)
--- NOTE | 2019-02-09 07:20 | History and Physical Report ---
CHIEF COMPLAINT: Short of breath, cough, right-sided chest wall pain. HISTORY OF PRESENT ILLNESS: This 68-year-old female presented to the emergency department with right-sided up chest wall pain, sharp in nature, evaluated by Dr. Guadalupe. She had a fever of 101. Chest x-ray showing severe pulmonary emphysema, COPD. CT of the chest revealed no PE. Severe emphysematous changes right upper lobe apical scarring noted. No evidence of mediastinal lymphadenopathy or hilar masses. She had a fever of 101 at home 4 hours prior. She was diagnosed in the emergency department by Dr. Guadalupe with COPD, bronchitis, right-sided chest wall pain. Given Toradol 50 mg IV and breathing treatments, oxygen therapy. She was admitted to the hospital for further evaluation. She was started on IV Levaquin because she is allergic to penicillin. She failed Z-Stan approximately 2 weeks ago without prednisone. She was seen at the [facility], placed on Z-Stan and prednisone taper, finished it 2 days ago. The Z-Stan was finished 5-7 days ago but the prednisone lasted until about 3 days ago. PAST MEDICAL HISTORY: COPD, hypercholesterolemia, restless leg syndrome, arthritis, osteoporosis, anxiety, anxiety and depression. PAST SURGICAL HISTORY: Right breast lumpectomy 2012, bilateral cataracts repaired. SOCIAL HISTORY: She is a former smoker of cigarettes, quit in 2012. FAMILY HISTORY: Father, grandparents had cancer. Heart disease in the father. No alcohol use. Former cigarette smoker. MEDICATIONS: 1. Crestor 20 mg daily. 2. Aspirin 81 mg daily. 3. Spiriva 1 cap daily. 4. Requip 0.25 at h.s. 5. Advair 112/21 one puff as directed, 1 puff b.i.d. 6. Ventolin inhaler 2 puffs q.4 h. p.r.n. 7. Albuterol nebulizer 1 nebulization every 4-6 hours p.r.n. 8. Home oxygen at 2L/min nasal cannula at night and p.r.n. during the day. REVIEW OF SYSTEMS: HEENT: Some congestion. No sore throat. No upper respiratory congestion. She has a raspy cough. Cardiovascular: No chest pain except that she does have pleuritic right-sided chest pain. No palpitations or history of CO. Respiratory: She has shortness of breath, cough, congestion, dry and rattling cough. Gastrointestinal: No nausea, vomiting, diarrhea, black stools, or bloody stools. Genitourinary: No dysuria, hematuria, frequency, or burning on urination. Musculoskeletal: Moving all 4 extremities appropriately. She has some diffuse arthritis and chronic low back pain. Neurological: No CVA, paralysis, or paresthesias. Endocrine: No diabetes or thyroid disease. Integument: No rash, ulcers, change in moles, or yellow skin. PHYSICAL EXAMINATION: GENERAL: A 68-year-old female in no acute distress, was in distress in the emergency department, short of breath and wheezing, coughing. Doing better since admitted to the hospital. VITALS: Temperature 102.8, pulse 108, respiration 19, pulse ox 95% on 2L O2. Standing weight is 95 pounds, height 5 feet 5 inches. HEENT: Pupils are equal, round, and reactive to light and accommodation. Extraocular muscles are intact. Throat is clear. Nose is clear. Tympanic membranes are basurto. NECK: Supple. No jugular venous distention. No hepatojugular reflux. No carotid bruits. CARDIOVASCULAR: Regular rate and rhythm without murmurs, clicks, rubs, or gallops. RESPIRATORY: Decreased breath sounds bilaterally. Some scant wheezing. ABDOMEN: Soft, nontender. No hepatosplenomegaly, no masses, no tenderness. Bowel sounds are active. FACILITIES MAINTENANCE ASSISTANT: Exam deferred. BREASTS: Exam deferred. MUSCULOSKELETAL: Moving all 4 extremities. No pedal edema. NEUROLOGIC: Cranial nerves II-XII intact. No gross defects. Sensory is equal bilaterally, strength is equal bilaterally. IMPRESSION: 1. Chronic obstructive pulmonary disease exacerbation. 2. Bronchitis. 3. Right-sided pleurisy. 4. Fever. PLAN: Levaquin IV 750, one today. Solu-Medrol 125 given in the ER and 60 mg q.8 h. Albuterol q.2 h. p.r.n. DuoNeb q.4 h. p.r.n. while awake. Cautious hydration by mouth orally. MTDD
[2019-02-09] MEDS: PREDNISONE 20 MG TAB PO SCH ×2 (09:39→22:08)
--- NOTE | 2019-02-09 14:50 | History and Physical Report ---
CHIEF COMPLAINT: Dyspnea. HISTORY OF PRESENT ILLNESS: This 68-year-old female presented to the emergency department, seen by Dr. Guadalupe, complaining of being short of breath and right- sided chest wall pain with inspiration. She was recently on antibiotics and prednisone for a cough. She was running a fever of 101. She was on Z-Stan. The chest wall pain started the day of admission on 02/07/2019. She complains of a dry rattling cough. She is on home oxygen at 2L/min at night only, p.r.n. during the day. Her last dose of prednisone was 2 days prior to coming to the emergency department yesterday on 02/07/2019. PAST MEDICAL HISTORY: COPD, arthritis, osteoporosis, anxiety and depression, hypercholesterolemia, restless leg syndrome. PAST SURGICAL HISTORY: Bilateral cataract surgery, right breast lumpectomy 2012. ALLERGIES: PENICILLIN. HOME MEDICATIONS: 1. Crestor 20 mg a day. 2. Aspirin 81 mg a day. 3. Spiriva 1 cap a day. 4. Requip 0.25 at h.s. 5. Advair 115/21 one puff b.i.d. 6. Ventolin 2 puffs q.2 h. p.r.n. 7. Albuterol nebulization 1 every 4-6 hours p.r.n. SOCIAL HISTORY: Former cigarette smoker. Quit in 2012. Denies any alcohol or drug use. FAMILY HISTORY: Father, grandparents had cancer, father had heart disease. REVIEW OF SYSTEMS: HEENT: She had congestion, cough, and approximately 10 days ago had shortness of breath, diagnosed with bronchitis, COPD exacerbation, given prednisone and Z-Stan. Some improvement. Came into the hospital because she was more short of breath again. Cardiovascular: No chest pain, palpitations, or arrhythmia. Respiratory: She is short of breath, tachypneic, worse with exertion and having right chest pain with deep inspiration. Gastrointestinal: No nausea, vomiting, diarrhea, black stools, or bloody stools. Genitourinary: No dysuria, hematuria, frequency, or burning on urination. Neurological: Cranial nerves II- XII intact. No CVA, paralysis, or paresthesias. No balance problems or headache problems. Endocrine: No diabetes or thyroid disease. No change in weight, polyuria, polydipsia. Hematologic: No blood disorders. PHYSICAL EXAMINATION: GENERAL: The patient is a 68-year-old female in moderate distress because of her dyspnea. VITALS: Temperature 98.2, pulse 89, blood pressure 100/51, respiratory rate 22, pulse ox 97% on 2L. HEENT: Pupils are equal, round, and reactive to light and accommodation. Extraocular muscles are intact. Throat is clear. Nose is clear. Tympanic membranes are basurto. NECK: Supple. No jugular venous distention. Thyroid is smooth. CARDIOVASCULAR: Regular rate and rhythm without murmurs, clicks, rubs, or gallops. RESPIRATORY: Decreased breath sounds bilaterally. Wheezing in both lung deleon. ABDOMEN: Soft, nontender. No hepatosplenomegaly, no masses, no tenderness. Bowel sounds are active. BREASTS: Exam deferred. GYNECOLOGICAL: Exam deferred. NEUROLOGIC: Cranial nerves II-XII intact. No gross defects. Sensation normal, strength normal. Deep tendon reflexes equal bilaterally with Babinski negative. MUSCULOSKELETAL: Moving all 4 extremities. No pedal edema. LYMPHATICS: No abnormal lymphadenopathy palpated in the axillary areas. IMPRESSION: 1. Acute bronchitis. 2. Chronic obstructive pulmonary disease exacerbation. 3. Pleurisy. 4. Fever. PLAN: IV Levaquin and IV Solu-Medrol. O2 therapy, breathing treatments, and home medications. MTDD
[2019-02-09] MEDS: LEVOFLOXACIN 500MG IVPB 500 MG/100 ML BAG IVPB SCH (15:35)
[2019-02-09] MEDS: ROPINIROLE HCL 1 MG TABLET PO SCH (22:08)
[2019-02-10] MEDS: IPRATROPIUM/ALBUTEROL (0.5MG/3MG) NEB INH SCH ×3 (06:31→13:51)
[2019-02-10] MEDS: PREDNISONE 20 MG TAB PO SCH (09:55)
--- NOTE | 2019-02-10 11:03 | Rehab Evaluation ---
Patient Information - Patient Information Diagnosis: acute exacerbation of COPD w/ bronchitis and fever Ordered Treatment: OT Evaluate and Treat Status: Initial Evaluation Surgery: No Past Medical/Surgical Hx: PAST MEDICAL/SURGICAL HISTORY Past Surgical History right breast [id number] bilateral cataract PMH - Respiratory Hx Respiratory Disorders Yes Hx Bronchitis Yes Hx Chronic Obstructive Yes Pulmonary Disease (COPD) Hx Dyspnea Yes Comment: wears oxygen at night 2l PMH - Cardiovascular Hx Cardiovascular Disorders No PMH - Neuro Hx Neurological Disorders No PMH - GI Hx Gastrointestinal Disorders No PMH - Hx Genitourinary Disorders No Patient No PMH - Endocrine Hx Endocrine Disorders No Hx Diabetes No Hx Thyroid Disease No PMH - Musculoskeletal Hx Musculoskeletal Disorders Yes Hx Arthritis Yes Hx Osteoporosis Yes PMH - Psych Hx Psychiatric Problems Yes Hx Anxiety Yes Hx Depression Yes PMH - Hematology/Oncology Hx Hematology/Oncology No Disorders Premorbid Status: Detail (Prior to admit, Pt was independent with all I/ADLs and functional mobility, driving, and making short trips to the grocery store for a few items.) Social History: Detail (Pt lives in a multi-level home with her daughter. There are 2 steps at the entrance with bilateral handrails, and a left side handrail on the 12 stairs from the basement laundry. The bathroom is equipped with a tub/shower combination which has a hand-held shower. She wears 2L O2 thru nasal canula when sleeping and has portable O2 she occasionally uses when picking up sticks in the yard, etc. She takes her dog on short walks.) Precautions: [place], Fall, Other (monitor O2, COPD >88%) - Time With Patient Total Time Spent With Patient (Min): 40 (1 eval, 2 self care) Subjective Information - Subjective Information Per Patient (Pt in bed knitting upon therapist arrival, agreeable to OT. Daughter Shauna and nursing program director present at end of session.) Objective Data - Pain Pain Present: No - Mental Status Patient Orientation: Oriented x3 - Visual Perception Appears within normal limits for therapeutic activities - ROM Within normal limits (B UEs) - Strength/Tone Within normal limits (B UEs) - Coordination Appears within normal limits for therapeutic activities - Bed Mobility Independent (Supine to/from EOB) - Transfers Independent (Sit-stand from EOB and from standard toilet with good balance and safety awareness.) - Balance Balance Sitting: Good Balance Standing: Good - Sensation Intact - Gait Detail (Functional mobility within bedroom without AD and good balance and safety awareness. O2 initially 90%, HR 127 at rest, dropped to 89%, HR 130 with fxl mobility ~15 ft with O2 NC, Pt wanting to return home without O2 and trialed fxl mobility ~15 ft without O2 but dropped to 85%, HR 132, 20 sec recover to 90% with therapist initiated rest break, pursed lip breathing, and reminders to focus on breathing vs. talking.) - ADL's/IADL's Detail (Pt demos independence with all ADLs including dressing, grooming, simulated showering, and functional TFs. OT educated Pt on energy conservation techniques to use at home to decrease risk for overexersion/SOB leading to risk for falls or further injury. Educ. included: pursed lip breathing technique, importance of and where to obtain shower chair and suction grab bar for shower, use of powerchair in store when feeling SOB, checking O2 sat during functional tasks/mobility, seated ADLs included cooking while keeping O2 away from stove, and increased use of O2 NC during fxl activity and sitting during coughing. Pt and daughter demo/verbalizes understanding.) Therapy Assessment - Therapy Assessment Detail (Pt demos safety and independence with I/ADLs, energy conservation techniques, and pursed lip breathing for increased safety and decreased risk for overexertion. No further IP OT needs/goals identified.) Patient Education - Patient Education Teaching Topic: Equipment Use, Precautions, Other (home mods, EC techs, breathing techs) Response: Return Demonstration, Verbalize Understanding Teaching Method: Discussion, Demonstration Teaching Recipient: Patient Barriers To Learning: None Problem List - Problem List Occupational Therapy Problem List: Detail (No further IP OT needs identified.) Goals - Goals Occupational Therapy Goals: No further IP OT needs/goals identified. Prognosis - Prognosis Good Plan - Plan Occupational Therapy Plan: No further skilled IP OT needs/goals identified. [facility] OT services. Thank you for this referral.
--- NOTE | 2019-02-10 11:30 | Rehab Evaluation ---
Patient Information - Patient Information Diagnosis: acute exacerbation of COPD w/ bronchitis and fever Ordered Treatment: PT Evaluate and Treat Status: Initial Evaluation Surgery: No History: Detail (Patient presented to the ED on 02/07/19 with complaints of shortness of breath and pain on the R side of her upper back that increases with inspiration.) Past Medical/Surgical Hx: PAST MEDICAL/SURGICAL HISTORY Past Surgical History right breast [id number] bilateral cataract PMH - Respiratory Hx Respiratory Disorders Yes Hx Bronchitis Yes Hx Chronic Obstructive Yes Pulmonary Disease (COPD) Hx Dyspnea Yes Comment: wears oxygen at night 2l PMH - Cardiovascular Hx Cardiovascular Disorders No PMH - Neuro Hx Neurological Disorders No PMH - GI Hx Gastrointestinal Disorders No PMH - Hx Genitourinary Disorders No Patient No PMH - Endocrine Hx Endocrine Disorders No Hx Diabetes No Hx Thyroid Disease No PMH - Musculoskeletal Hx Musculoskeletal Disorders Yes Hx Arthritis Yes Hx Osteoporosis Yes PMH - Psych Hx Psychiatric Problems Yes Hx Anxiety Yes Hx Depression Yes PMH - Hematology/Oncology Hx Hematology/Oncology No Disorders Premorbid Status: Detail (Prior to admit, Pt was independent with all I/ADLs and functional mobility, driving, and making short trips to the grocery store for a few items. She said she was able to go downstairs to do laundry but had to stop chcf to catch her breath.) Social History: Detail (Pt lives in a multi-level home with her daughter. There are 2 steps at the entrance with bilateral handrails, and a left side handrail on the 12 stairs from the basement laundry. The bathroom is equipped with a tub/shower combination which has a hand-held shower. She wears 2L O2 thru nasal canula when sleeping and has portable O2 she occasionally uses when picking up sticks in the yard, etc. She takes her dog on short walks. She said she did not ambulate with an AD prior to this hospitalization and does not have any ADs at home.) Precautions: [place], Fall, Other (monitor O2, COPD >88%) - Time With Patient Total Time Spent With Patient (Min): 25 Treatment Procedures: Detail (Initial evaluation; low complexity Patient was left in bed with her call light and bedside table within reach. She was left on 2L of O2.) Subjective Information - Subjective Information Per Patient (Patient reported that she had some shortness of breath.) Objective Data - Pain Pain Present: No - Mental Status Patient Orientation: Oriented x3 - Visual Perception Appears within normal limits for therapeutic activities - ROM Within normal limits (LE AROM is within normal limits for functional act ivities.) - Strength/Tone Other (R hip flexion 3+/5, L hip flexion 4/5, bilateral hip abduction and knee flexion 4/5, bilateral hip adduction, knee extension, and ankle DF 5/5.) - Bed Mobility Independent (Patient was independent in bed mobility tasks.) - Transfers Independent (Patient was independent in sit to stand and stand to sit.) - Balance Balance Sitting: Good Balance Standing: Good - Sensation Intact - Gait Detail (On room air at 2L of O2 patient was at 94%. Patient ambulated independently 35 feet in the hallway, on 2L of O2 and at the end of the walk she was at 92% saturation. She ambulates with a reciprocal step through gait pattern. After walking 15 feet and descending 12 stairs she was at 90% saturation. She was independent in stair negotiation. After ascending 12 stairs she was at 88% saturation, and after walking 20 feet back to her room she was at 91% saturation.) - ADL's/IADL's Detail Therapy Assessment - Therapy Assessment Detail (Patient did not have any limitations that require further physical therapy. It is recommended that she pace herself with activities and use O2 as needed for ADLs. The patient reported that she has a daily walking program and is aware of her own limitations and being able to track her O2 saturation. Patient was independent in pursued lip breathing techniques. The respiration therapist was consulted and it was confirmed that the patient should use 2L of O2 with activity.) Problem List - Problem List Physical Therapy Problem List: Detail (1. Decreased LE strength 2. Decreased endurance 3. O2 desaturation with activity) Goals - Goals Physical Therapy Goals: No inpatient therapy goals are identified at this time. The patient is independent in ambulation, stairs, and ADLs. She is aware of needing to limit her activity and using her O2 as needed. Prognosis - Prognosis Good Plan - Plan Physical Therapy Plan: Patient does not need further physical therapy at this time.
--- NOTE | 2019-02-10 15:36 | Discharge Summary ---
Providers Discharge Summary Date: 02/10/19 Date of admission: 02/07/19 16:00 Expected Date of Discharge: 02/10/19 Attending physician: Shashi Roy Primary care physician: MELO POPE M.D. Physical Exam - Vital Signs Vital Signs: Vital Signs - Last 24 Hrs Temp Pulse Pulse Pulse Pulse Resp BP 02/10/19 13:51 101 H 18 02/10/19 09:18 111 H 20 02/10/19 09:00 22 02/10/19 08:00 99.3 F 90 90 93 H 12 133/66 02/10/19 06:31 92 H 18 02/10/19 05:00 97.6 F 91 H 22 120/66 02/10/19 00:00 112 H 24 02/09/19 21:22 108 H 18 02/09/19 21:00 104 H 02/09/19 20:00 97.7 F 104 H 24 122/70 02/09/19 18:20 109 H 18 02/09/19 18:16 101 H 18 Pulse Ox 02/10/19 13:51 96 02/10/19 09:18 96 02/10/19 09:00 02/10/19 08:00 02/10/19 06:31 100 02/10/19 05:00 97 02/10/19 00:00 94 L 02/09/19 21:22 95 02/09/19 21:00 02/09/19 20:00 96 02/09/19 18:20 94 L 02/09/19 18:16 99 - General General Appearance: Alert, Oriented x3, Cooperative, Mild distress Limitations: No limitations - Head Head exam: Normal inspection - Eye Eye exam: Normal appearance, PERRL, EOMI Pupils: Normal accommodation - ENT ENT exam: Normal exam, Mucous membranes moist, Normal external ear exam, Normal orophraynx Ear exam: Normal external inspection. negative: External canal tenderness Nasal Exam: Normal inspection. negative: Discharge, Sinus tenderness Mouth exam: Normal external inspection, Tongue normal Teeth exam: Normal inspection. negative: Dental caries Throat exam: Normal inspection. negative: Tonsillar erythema, Tonsillar exudate - Neck Neck exam: Normal inspection, Full ROM. negative: Tenderness - Respiratory Respiratory exam: Decreased breath sounds - Cardiovascular Cardiovascular Exam: Normal rhythm, Normal heart sounds - GI/Abdominal GI/Abdominal exam: Soft, Normal bowel sounds. negative: Tenderness - Rectal Rectal exam: Deferred - exam: Deferred - Extremities Extremities exam: Normal inspection, Full ROM, Normal capillary refill. negative: Tenderness - Back Back exam: Reports: Normal inspection, Full ROM. Denies: Muscle spasm, Rash noted, Tenderness - Neurological Neurological exam: Alert, CN II-XII intact, Normal gait, Oriented X3 - Psychiatric Psychiatric exam: Normal affect, Normal mood - Skin Skin exam: Dry, Intact, Normal color, Warm Hospitalization - Hospitalization Admission Diagnosis: acute exacerbation of copd with bronchitis and fever - Problem List/Discharge Diagnosis (1) Acute exacerbation of chronic obstructive pulmonary disease (COPD) Current Visit: Yes Status: Acute Base Code: J44.1 - CHRONIC OBSTRUCTIVE PULMONARY DISEASE W (ACUTE) EXACERBATION Diagnosis Priority: Primary Comment: improved with dumeb treatments every 4 hours while awake and IV solumedrol followed by oral prenisone levaquin IV followed by oral levaquin (2) Bronchitis Current Visit: Yes Status: Acute Base Code: J40 - BRONCHITIS, NOT SPECIFIED ACUTE OR CHRONIC Diagnosis Priority: Primary Comment: levaquin IV initially and going home with levaquin 50 mg daily for 7 days (3) Fever Current Visit: Yes Status: Acute Discharge Diagnosis: Fever type: unspecified Qualified Code(s): R50.9 - Fever, unspecified Base Code: R50.9 - FEVER, UNSPECIFIED (4) DVT prophylaxis Current Visit: No Status: Acute Base Code: [id number] - Diagnosis Priority: Secondary Comment: 10/13/16- SCDs to be worn in bed. will continue to promote frequent ambulation. (5) Hypoxemia Current Visit: Yes Status: Acute Base Code: R09.02 - HYPOXEMIA Diagnosis Priority: Primary Comment: 03/16/16- Improving. Satting 95% on 2L/min via NC and shortness of breath has resolved at rest. MLC is COPD exacerbation. -continue albuterol nebulizer treatements q2H prn SOB -continue supplemental Oxygen 2L/min via NC. -Patient already qualifies for night time home oxygen. Will likely need a repeat of a home qualifier for oxygen with activity - Disposition going home - Hospitalization Course Disposition: Home, Self-Care Hospital Course: patient gradually improved and will continue therapy as an outpatient Procedures: Imaging and X-Rays 02/07/19 11:47 CXR [CHEST 2 VIEWS] [RAD] Stat 11/12/19 13:30 CHEST CTA w contrast [CTA] Stat Cardiology Procedures 02/07/19 11:20 Accountant Bookkeeper NOW EKG NOW Abnormal Labs: Abnormal Lab Results 02/07/19 02/07/19 02/07/19 Range/Units 11:10 11:10 Unknown WBC 17.8 H (4.2-12.2) K/uL RBC (3.80-5.40) M/uL Hgb (11.6-16.0) gm/dl Hct (35.0-47.0) % RDW 14.6 H (11.5-14.5) % Neutrophils % 92.0 H (47-80) % Lymphocytes % 4.5 L (16-45) % Monocytes % 10.2 H (0-9) % Lymphocytes 3.0 L (16-45) % Chloride 96 L (98-107) mmol/L Anion Gap 18.0 H (7-16) Random Glucose 116 H (74-109) mg/dL Urine Ketones 40 mg/dl H (NEGATIVE) 02/08/19 Range/Units 10:06 WBC 14.1 H (4.2-12.2) K/uL RBC 3.71 L (3.80-5.40) M/uL Hgb 10.5 L (11.6-16.0) gm/dl Hct 32.6 L (35.0-47.0) % RDW (11.5-14.5) % Neutrophils % 96.0 H (47-80) % Lymphocytes % (16-45) % Monocytes % (0-9) % Lymphocytes 3.0 L (16-45) % Chloride (98-107) mmol/L Anion Gap (7-16) Random Glucose (74-109) mg/dL Urine Ketones (NEGATIVE) Condition at Discharge: (2) Stable Discharge Diagnosis: Acut bronchitis , acute exacerbation of COPD,pleursy VTE Discharge VTE Reason For No Overlap Therapy: Not Indicated Discharge Medications - Discharge Medications Prescriptions: Levofloxacin [Levaquin Tab] 500 mg PO DAILY #7 tab Prednisone [Prednisone 10Mg] 10 mg PO ASDIR #30 tab Home Medications: Ambulatory Orders Albuterol Sulfate [Ventolin Hfa] 1 - 2 puff INH Q2HR PRN 07/02/14 [Last Taken 1 Day Ago ~10/10/16] Tiotropium [place] [Spiriva] 1 cap IH DAILY #1 cap.w.dev 03/18/16 [Last Taken 1 Day Ago ~10/10/16] Albuterol Sulfate 0.083% [Neb] [Albuterol Sulfate] 3 ml NEB .EVERY 4-6 HOURS PRN #30 ml 04/28/16 [Last Taken 1 Day Ago ~10/10/16] Fluticasone Propion/Salmeterol [Advair Hfa 115-21 Mcg Inhaler] 1 puff IH ASDIR 09/27/18 [Last Taken Unknown] Ropinirole HCl [Requip] 0.25 mg PO QHS 09/28/18 [Last Taken Unknown] Aspirin [Aspirin EC] 81 mg PO DAILY 02/07/19 [Last Taken 02/07/19 10:00] Rosuvastatin Calcium [Crestor] 20 mg PO ASDIR 02/07/19 [Last Taken 02/06/19 10:00] Acetaminophen [Tylenol 500Mg Tab] 1,000 mg PO Q6H PRN tablet 02/10/19 [Last Taken Unknown] Albuterol Sulfate 0.083% [Neb] [Albuterol Sulfate] 2.5 mg INH RESP.Q2H PRN nebulization solution 02/10/19 [Last Taken Unknown] Levofloxacin [Levaquin Tab] 500 mg PO DAILY #7 tab 02/10/19 [Last Taken Unknown] Prednisone [Prednisone 10Mg] 10 mg PO ASDIR #30 tab 02/10/19 [Last Taken Unknown] Discharge Plan - Discharge Instructions Additional Instructions: Follow handouts provided for high calorie/protein meal ideas, make high calorie/protein recipes for snacks in between, choose healthier frozen dinners (use handout for tips) with at least 500 calories per meal Quality Measures - Quality Measures Quality Measures: Advance Directives, Documentation of Current Medications in Medical Record, Elder Maltreatment Screen and Follow-Up Plan, Screening for High Blood Pressure and F/U Documented - Current Medications Quality Measure: Measure #130: Documentation of Current Medications Documentation of Current Medications: <Current Medications Documented/Reviewed> [G8427] - Blood Pressure Screening Quality Measure: Screening for High Blood Pressure and Follow-Up Documented Does Patient Have Any of the Following: No Blood Pressure Classification: Normal BP Reading Systolic Measurement: 105 Diastolic Measurement: 67 Screening for High Blood Pressure: < Normal BP, F/U Not Required > [G1774] - Advance Directives Quality Measure: Measure #47: Care Plan Advance Directives Established: No Advance Directives Information Provided To Patient: Yes Advance Directives on File: No Living Will: No Power of Merchandising Team Lead: Yes Power of Merchandising Team Lead Name: LEILA ROCHA Advance Care Planning: <Care Plan/Decision Maker Documented; Discussed & Documented> [[id number]] - Elder Abuse Suspicion Index Screening: Elder Abuse Suspicion Index Screening Rely on people for bathing, dressing, shopping, banking, etc: No Prevented from getting food, clothes, medication, etc: No Made to feel shamed or threatened by someone: No Forced to sign papers or use money against will: No Feel afraid, touched in ways not wanted or hurt physically: No Poor eye contact, withdrawn, malnourished, cuts or bruises: No Screening Result: Negative result EASI Reference Information: Kim CARDONA, Minal C, Abida D, Lexii Wong.Development and validation of a tool to assist physicians identification of elder abuse: The Elder Abuse Suspicion Index (EASI ). Journal of Elder Abuse and Neglect, 2008; 20 (3): 276-300. - Elder Maltreatment Screen Quality Measures: Elder Maltreatment Screen and Follow-Up Plan Elder Maltreatment Screen: <Negative, No Follow-Up Plan Required> [F8236]
--- NOTE | 2019-02-13 07:40 | Discharge Summary ---
DATE: 02/10/2019 ADMISSION DATE: 02/07/2019 DISCHARGE DIAGNOSES: 1. Acute bronchitis. 2. Exacerbation of chronic obstructive pulmonary disease. 3. Pleurisy which has resolved. 4. Fever which has resolved. 5. History of hypercholesterolemia. 6. History of restless leg syndrome. 7. History of arthritis. 8. History of osteoporosis. 9. History of anxiety and depression. ATTENDING PHYSICIAN: Shashi Roy DO REASON FOR HOSPITALIZATION: Short of breath, cough, right-sided chest wall pain. This 68-year-old female presented to the emergency department with right-sided chest wall pain, sharp in nature. Evaluated by Dr. Guadalupe. She had a fever of 101. Chest x-ray showing severe pulmonary emphysema and COPD. CT of the chest revealed no PE and severe emphysematous changes right upper lobe. No evidence of mediastinal lymphadenopathy or hilar mass. She had a fever of 101 at home. She was diagnosed with bronchitis, COPD in the emergency department. She was started on Levaquin, oxygen therapy, and DuoNeb treatments every 4 hours with IV Solu- Medrol. Previously she was seen in [facility] about 2 weeks before. She was given a short course of prednisone and Z-Stan. That did not seem to do the job for her. She came in 3 days after the last prednisone dose. SIGNIFICANT FINDINGS: Chest x-ray with severe pulmonary emphysema, COPD. CT of the chest revealed the same. No PE. Troponin T x2 time points were negative. Influenza A and B were negative. Urine was negative. White count 17,800 in the ER and dropped down to 14,100. Hemoglobin dropped down to 10.5. Potassium 3.7, BUN 12, creatinine 0.7. Brain natriuretic peptide normal at 122.5. EKG showing sinus tachycardia, right bundle-branch block, left atrial enlargement, no acute changes. THERAPY PROVIDED: The patient was started on IV Levaquin, given DuoNeb treatments, oxygen therapy, IV Solu-Medrol. The patient gradually improved. On discharge, she was feeling better but still short of breath with walking around the hospital room. CONDITION ON DISCHARGE: Much improved. DISCHARGE INSTRUCTIONS: Follow up with Dr. Marks next week. Levaquin 500 mg daily for 7 days, prednisone taper 40 mg for 3 days, 30 mg for 3 days, 20 mg for 3 days, 10 mg for 3 days. Continue her home medications. Crestor 20 mg daily, aspirin 81 mg daily, Spiriva 1 cap a day, Requip 0.25 at h.s., Advair 1 puff b.i.d., Ventolin inhaler once she is mobile 2 puffs every 4 hours, albuterol nebulization every 4 hours for the next week, and oxygen use continuously 2L/min nasal cannula. We will check her with an oxygen qualifier to see if she needs more oxygen when walking around. RIKA
== END 2019-02-10 16:33 | disposition home or self-care (01) | DRG 192 ==
LOC: ER 10:57 → MEDSURG 16:00
PROVIDERS: ADMIT Emergency Medicine; ATTEND Emergency Medicine
DX: J44.1 Chronic obstructive pulmonary disease with (acute) exacerbation (principal); J40 Bronchitis, not specified as acute or chronic; R06.00 Dyspnea, unspecified; M54.89 Other dorsalgia; M19.90 Unspecified osteoarthritis, unspecified site; M81.0 Age-related osteoporosis without current pathological fracture; Z87.891 Personal history of nicotine dependence; F41.8 Other specified anxiety disorders; G25.81 Restless legs syndrome; R09.1 Pleurisy
CPT/HCPCS: 80053; 87400; 84484; 85379; 85027; 83880; 71046; 71275; 94640; 93005; 93010; Q9967; J1885; 81003; 94667; 94760; 94761; 96374; 96375; 99223; 99233; 99239; 99285; J1956; J2930; J7030; J7512

== ENCOUNTER 2019-02-11 08:02 | Emergency (ER) | payer MEDICARE ==
[2019-02-11] MEDS ORDERED: ALBUTEROL SULFATE (0.083%) 2.5 MG/3 ML NEB INH ONE (08:07)
[2019-02-11] MEDS ORDERED: METHYLPREDNISOLONE PF 125MG/VIAL IVP ONE (08:07)
--- NOTE | 2019-02-11 08:13 | Emergency Department Record ---
History of Present Illness - General Chief Complaint: Difficulty Breathing Stated Complaint: ANEUDY Time Seen by Provider: 02/11/19 08:07 Source: Patient - History of Present Illness Initial Comments: The patient is a COPD patient who was discharged yesterday from the hospital to her private home where she lives alone. She was paced on Levaquin 500 mg and prednisone. She awakened this morning short of breath, claiming that her cat dislodged her oxygen tubing. EMS arrived with her biox of 79 and pulse in the 130's. They placed her on 6 liters oxygen, then turned it down to 4 liters prior to arriving at the emergency department. Her pulse was 120, and biox was 89 on 4 liters oxygen upon arrival here. Patient is breathless, speaks short sentences. She states she has pleurisy in her right anterior chest wall from before. MD Complaint: Shortness of breath - Related Data Previous Rx's Medication Instructions Recorded Tiotropium [place] [Spiriva] 1 cap IH DAILY #1 cap.w.dev 03/18/16 Albuterol Sulfate 0.083% [Neb] 3 ml NEB .EVERY 4-6 HOURS PRN #30 04/28/16 [Albuterol Sulfate] ml Acetaminophen [Tylenol 500Mg Tab] 1,000 mg PO Q6H PRN tablet 02/10/19 Albuterol Sulfate 0.083% [Neb] 2.5 mg INH RESP.Q2H PRN 02/10/19 [Albuterol Sulfate] nebulization solution Levofloxacin [Levaquin Tab] 500 mg PO DAILY #7 tab 02/10/19 Prednisone [Prednisone 10Mg] 10 mg PO ASDIR #30 tab 02/10/19 Allergies Allergy/AdvReac Type Severity Reaction Status Date / Time Penicillins Allergy Unknown PT UNSURE Verified 02/11/19 10:08 OF REACTION Review of Systems Reviewed: No additional complaints except as noted below Constitutional: Reports: As per HPI. Denies: Chills, Fever, Malaise, Night sweats, Weakness, Weight change Eyes: Reports: As per HPI. Denies: Eye discharge, Eye pain, Photophobia, Vision change ENT: Reports: As per HPI. Denies: Congestion, Dental pain, Ear pain, Epistaxis, Hearing loss, Throat pain Respiratory: Reports: As per HPI. Denies: Cough, Dyspnea, Hemoptysis, Stridor, Wheezes Cardiovascular: Reports: As per HPI. Denies: Arrhythmia, Chest pain, Dyspnea on exertion, Edema, Murmurs, Orthopnea, Palpitations, Paroxysmal nocturnal dyspnea, Rheumatic Fever, Syncope Endocrine: Reports: As per HPI. Denies: Fatigue, Heat or cold intolerance, Polydipsia, Polyuria Gastrointestinal: Reports: As per HPI. Denies: Abdominal pain, Constipation, Diarrhea, Hematemesis, Hematochezia, Melena, Nausea, Vomiting Genitourinary: Reports: As per HPI. Denies: Abnormal menses, Discharge, Dyspareunia, Dysuria, Frequency, Hematuria, Incontinence, Retention, Urgency Musculoskeletal: Reports: As per HPI. Denies: Arthralgia, Back pain, Gout, Joint swelling, Myalgia, Neck pain Skin: Reports: As per HPI. Denies: Bruising, Change in color, Change in hair/nails, Lesions, Pruritus, Rash Neurological: Reports: As per HPI. Denies: Abnormal gait, Confusion, Headache, Numbness, Paresthesias, Seizure, Tingling, Tremors, Vertigo, Weakness Psychiatric: Reports: As per HPI. Denies: Anxiety, Auditory hallucinations, Depression, Homicidal thoughts, Suicidal thoughts, Visual hallucinations Hematological/Lymphatic: Reports: As per HPI. Denies: Anemia, Blood Clots, Easy bleeding, Easy bruising, Swollen glands Past Medical History - SOCIAL HISTORY Smoking Status: Former smoker - RESPIRATORY Hx Respiratory Disorders: Yes Hx Bronchitis: Yes Hx COPD: Yes Hx Dyspnea: Yes Comment:: wears oxygen at night 2l - CARDIOVASCULAR Hx Cardio Disorders: No - NEURO Hx Neuro Disorders: No - GI Hx GI Disorders: No - Hx Genitourinary Disorders: No - ENDOCRINE Hx Endocrine Disorders: No Hx Diabetes: No Hx Thyroid Disease: No - MUSCULOSKELETAL Hx Musculoskeletal Disorders: Yes Hx Arthritis: Yes Hx Osteoporosis: Yes - PSYCH Hx Psych Problems: Yes Hx Anxiety: Yes Hx Depression: Yes - HEMATOLOGY/ONCOLOGY Hx Hematology/Oncology Disorders: No Family Medical History Hx Cancer: Father, Grandparents Hx Heart Disease: Father Physical Exam - General General Appearance: Alert, Oriented x3, Cooperative, Severe distress (biox 89 on 4 liters, breathless short sentences, anxious, sitting upright), Anxious - Head Head exam: Normal inspection - Eye Eye exam: Normal appearance, PERRL, EOMI. negative: Conjunctival injection, Nystagmus Pupils: Normal accommodation - ENT ENT exam: Normal exam, Mucous membranes dry, Normal external ear exam, Normal orophraynx, TM's normal bilaterally Ear exam: Normal external inspection. negative: External canal tenderness Nasal Exam: Normal inspection. negative: Discharge, Sinus tenderness Mouth exam: Normal external inspection, Tongue normal Teeth exam: Normal inspection. negative: Dental caries Throat exam: Normal inspection. negative: Tonsillar erythema, Tonsillar exudate - Neck Neck exam: Normal inspection, Full ROM. negative: Lymphadenopathy, Meningismus, Tenderness - Respiratory Respiratory exam: Accessory muscle use, Chest wall tenderness (right anterior chest wall with deep inspiration), Decreased breath sounds, Prolonged expir atory, Respiratory distress, Rhonchi - Cardiovascular Cardiovascular Exam: Normal rhythm, Normal heart sounds, Tachycardia - GI/Abdominal GI/Abdominal exam: Soft, Normal bowel sounds. negative: Tenderness - Rectal Rectal exam: Deferred - exam: Deferred - Extremities Extremities exam: Normal inspection, Full ROM, Normal capillary refill. negative: Calf tenderness, Pedal edema, Tenderness - Back Back exam: Reports: Normal inspection, Full ROM. Denies: CVA tenderness (R), CVA tenderness (L), Muscle spasm, Rash noted, Tenderness - Neurological Neurological exam: Alert, CN II-XII intact, Normal gait, Oriented X3, Reflexes normal. negative: Motor sensory deficit - Psychiatric Psychiatric exam: Normal affect, Normal mood - Skin Skin exam: Dry, Intact, Normal color, Warm Course - Reevaluation(s) Reevaluation #1: Patient is more comfortable with biox now 94% pulse has decreased, and ativan has helped her anxiety. 02/11/19 08:49 Patient Reevaluation #2: Patient is more comfortable with resting tachycardia of 134m biox 90%. Awaiting CTA results. CXR shows new blunting of CPA on right with increased intestitial marking from prior of 01-07-19. 02/11/19 10:09 Reevaluation #3: After moving patient around and cleaning her up her sats dropped to 88 on 3 liters. Repeat neb ordered, and oxygen increased to 4 liters. Awaiting CTA report for admission. Zithromax and solumedrol given. Anaphylaxis to penicillins. 02/11/19 10:22 02/11/19 10:43 CTA results (compared with 02-07-19) show 1. several areas of RUL worsened consolidation in the paex and posterior RUL along the oblique fissure 2. Small R pleural effusion worsened from prior. 3. RUL subsegmental equivocal filling defect 4. RLL mucous plugging. Reevaluation #4: Discussed with Dr. Fontana hospitalist who accepts patient in transfer. Dr. Foreman Senior Manufacturing Engineer paged in consult and agrees with transfer. Discussed plans with patient and family who are in agreement. All questions answered. Awaiting transfer. 02/11/19 10:55 02/11/19 10:57 02/11/19 11:11 Medical Decision Making - Management Options MDM Management: Additional Work-up Planned (e.g. ADM/Transfer/OP Study) (Transfer to [facility] direct admit) - Data Complexity MDM Data: Labs Ordered and/or Reviewed (D Dimer 0.68, ALT 49, AST 47, BNP 1140), X-Ray Ordered and/or Reviewed (CXR: Increased interstitial markings. and blunting of R cosptoprnic angle.Per radiologist.), EKG Ordered and/or Reviewed (EKG: SDinus tach @125, RBBB, similar to prior of 02-07-19.) - Lab Data Result diagrams: 02/11/19 08:10 02/11/19 08:10 - EKG Data -: EKG Interpreted by Mo EKG: No Acute Changes Disposition Disposition: Transfer Clinical Impression: COPD exacerbation, Respiratory distress, Hypoxemia Pneumonia Qualifiers: Pneumonia type: due to unspecified organism Laterality: right Lung location: upper lobe of lung Qualified Code(s): J18.9 - Pneumonia, unspecified organism Disposition: Acute Care Hospital Transfer Decision to Admit: Admit from ER Decision to Admit Date: 02/11/19 Decision to Admit Time: 10:48 Transfer To: [facility] Reason For Transfer: Worsening pneumonia with end stage COPD Accepting Physician: Dr. Fontana/ Dr. Amato pulmonary Time Discussed w/Accepting Physician: 11:12 Condition: (3) Guarded Forms: Patient Portal Access Quality - Quality Measures Quality Measures: N/A - Blood Pressure Screening Does Patient Have Any of the Following: No Blood Pressure Classification: Normal BP Reading Systolic Measurement: 118 Diastolic Measurement: 62 Screening for High Blood Pressure: < Normal BP, F/U Not Required > [G8783]
[2019-02-11] MEDS ORDERED: LORAZEPAM 2 MG/ML VIAL IV ONE (08:25)
[2019-02-11 08:26] LABS: BASO % 0.1 % (0-6); EOS % 0.1 % (0-6); HEMATOCRIT 36.1 % (35.0-47.0); HEMOGLOBIN 11.5 gm/dl (11.6-16.0); LYMPH % 3.7 % (16-45); MEAN CELL VOLUME 89.4 fl (81-97); MEAN CORPUSCULAR HGB CONC 31.9 g/dl (32-36); MEAN PLATELET VOLUME 9.7 fl (7.4-10.4); MONO % 7.7 % (0-9); PLATELET COUNT 290 K/uL (130-400); RED BLOOD COUNT 4.04 M/uL (3.80-5.40); RED CELL DISTRIBUTION WIDTH 14.8 % (11.5-14.5); WHITE BLOOD COUNT W/O DIFF 15.3 K/uL (4.2-12.2)
[2019-02-11] MEDS ORDERED: 0.9 % SODIUM CHLORIDE 500ML 500 ML IV SCH (08:30)
[2019-02-11 08:34] LABS: BLOOD UREA NITROGEN 14 mg/dL (8-23)
[2019-02-11 08:35] LABS: CREATININE 0.6 mg/dL (0.5-0.9); EST GLOMERULAR FILTRATION RATE > 60 mL/min; TOTAL PROTEIN 6.5 g/dL (6.6-8.7)
--- NOTE | 2019-02-11 08:35 | RADIOLOGY REPORT ---
EXAMINATION: Single View Chest EXAM DATE: 02/11/2019 8:28 AM TECHNIQUE: Single view chest INDICATION: Difficulty breathing COMPARISON: February 07, 2019 ENCOUNTER: Not applicable FINDINGS: The cardiac and mediastinal silhouettes are stable. There is mild bibasilar atelectasis. When compare d to the prior exam there is new blunting of the right costophrenic angle with increased interstitial prominence throughout the lungs. No pneumothorax. The lungs are hyperinflated. IMPRESSION: 1. Diffuse increased interstitial prominence may be due to edema superimposed on chronic changes. 2. Slight blunting of the right costophrenic angle could represent a pleural effusion. Dictated by: Delgado Lovell on 02/11/2019 8:28 AM. .
[2019-02-11 08:36] LABS: MEAN CORPUSCULAR HEMOGLOBIN 28.4 pg (27-33)
[2019-02-11 08:37] LABS: GLUCOSE,RANDOM 103 mg/dL (74-109)
[2019-02-11 08:40] LABS: ALB/GLOB RATIO 1.3 (1.1-1.8); ALBUMIN 3.7 g/dL (4.0-5.0); ALKALINE PHOSPHATASE 101 U/L (35-104); ALT/SGPT 49 U/L (<33); AST/SGOT 47 U/L (10.0-35.0)
[2019-02-11] MEDS ORDERED: ACETAMINOPHEN 500 MG TABLET PO ONE (08:52)
[2019-02-11] MEDS ORDERED: ACETAMINOPHEN 325 MG TAB PO ONE (08:58)
[2019-02-11] MEDS ORDERED: AZITHROMYCIN 500 MG TABLET PO ONE (09:57)
[2019-02-11] MEDS ORDERED: IPRATROPIUM/ALBUTEROL (0.5MG/3MG) NEB INH ONE (10:21)
--- NOTE | 2019-02-11 10:46 | CT ANGIOGRAM REPORT ---
EXAMINATION: CT Angiography of the Thorax EXAM DATE: 02/11/2019 10:00 AM TECHNIQUE: Standard protocol CT angiogram images were obtained through the chest following the admini stration of intravenous contrast. Coronal and sagittal MIP 3-D reformations were performed. IV Contrast: The amount and type of contrast are recorded in the medical record. INDICATION: Elevated d-dimer. COMPARISON: February 07, 2019, September 27, 2018 ENCOUNTER: Not applicable FINDINGS: Pulmonary Artery: Within a subsegmental branch of the right upper lobe (series 2, images 90 through 9 2) there is a subtle intraluminal filling defect. No central pulmonary embolism. The subsegmental bra nches of the lower lobes are obscured by patient motion. Aorta: No thoracic aortic aneurysm or dissection is present. Right Heart Strain: None. Heart : There is no pericardial effusion. Yessica and Mediastinum: There is a right perihilar lymph node (series 2, image 128) measuring 1.2 x 2.1 cm. Lung Parenchyma: There is dense consolidation within the superior and posterior portions of the righ t upper lobe with other scattered areas of parenchymal consolidation. There is centrilobular and para septal emphysematous change. No pneumothorax. Central Airways: There is mucous plugging within segmental and subsegmental bronchi of the right low er lobe with diffuse bronchial wall thickening. Pleural Effusion: There is a small right pleural effusion which is increased in size from the prior exam. Upper Abdomen: Unremarkable. Musculoskeletal and Chest Wall: Unremarkable. IMPRESSION: 1. Tiny filling defect within a subsegmental branch of the right upper lobe is equivocal for artifact or a very small pulmonary embolism. No CT signs of right heart strain or central pulmonary embolism. 2. Dense areas of consolidation in the superior and posterior aspect of the right upper lobe with oth er scattered areas of right upper lobe opacity are increased from the recent CT and are consistent wi th multifocal pneumonia superimposed on chronic emphysematous change. 3. Mucous plugging within multiple right lower lobe bronchi. 4. Small right pleural effusion. 5. Enlarged right perihilar lymph node is indeterminate in etiology. This may be infectious or inflam matory, however old comparisons are not available and a neoplastic process cannot be excluded. A Red Critical Result was communicated to at 02/11/2019 10:39 AM. Dictated by: Delgado Lovell on 02/11/2019 10:25 AM. .
[2019-02-11] MEDS ORDERED: VANCOMYCIN HCL 1,000 MG in 0.9 % SODIUM CHLORIDE 250ML 250 ML IVPB ONE (10:54)
[2019-02-11] MEDS ORDERED: AZTREONAM IVPB ONE (10:54)
[2019-02-11] MEDS ORDERED: SODIUM CHLORIDE 0.9% IVPB ONE (10:54)
== END 2019-02-11 11:59 | disposition short-term general hospital (02) ==
LOC: ER 08:02
DX: J44.1 Chronic obstructive pulmonary disease with (acute) exacerbation (principal); J18.9 Pneumonia, unspecified organism; R06.03 Acute respiratory distress; R09.02 Hypoxemia; Z99.81 Dependence on supplemental oxygen; Z87.891 Personal history of nicotine dependence
CPT/HCPCS: 71045; 71275; 80053; 83605; 83880; 84484; 85027; 85379; 93005; 93010; 96374; 96375; 99285; J2930; J7040; J7050; J7613

== ENCOUNTER 2019-02-28 10:13 | Inpatient (IN) | payer MEDICARE ==
[2019-02-28] MEDS ORDERED: BENZONATATE 100 MG CAPSULE PO PRN (16:28)
[2019-02-28] MEDS: IBUPROFEN 600 MG TABLET PO PRN (19:45)
[2019-02-28] MEDS: METHYL SALICYLATE TOP SCH (21:20)
[2019-02-28] MEDS: ROPINIROLE HCL 1 MG TABLET PO SCH (21:20)
[2019-02-28] MEDS: MENTHOL TOP SCH (21:20)
[2019-02-28] MEDS: GUAIFENESIN 1,200 MG TABLET PO SCH (21:20)
[2019-03-01] MEDS: IPRATROPIUM/ALBUTEROL (0.5MG/3MG) NEB INH SCH ×7 (02:42→22:16)
[2019-03-01] MEDS: BUDESONIDE 0.5 MG/2 ML INH SCH ×3 (02:42→22:17)
[2019-03-01] MEDS: IBUPROFEN 600 MG TABLET PO PRN (05:21)
[2019-03-01] MEDS: PREDNISONE 5 MG TAB PO SCH ×2 (07:42→16:29)
--- NOTE | 2019-03-01 08:49 | History & Physical ---
History of Present Illness - Date Date of Service for History & Physical: 03/01/19 - History of Present Illness Admitting Diagnosis: COPD exacerbation General - Cognitive Patterns Orientation: Oriented x3, Person, Place, Time, Responds to Name, Recognizes Familiar Faces or Places - Communication Preferred Language?: Macedonian Assistant Analyst Required: No Level of Education: High School Preferred Method of Learning: Seeing, Reading Comprehension Ability: No Impairment Select best description of speech pattern: Clear Speech Ability to express ideas and wants: Usually Understood Understanding verbal content: Understands - Psychosocial Well-Being Usual Living Arrangement: Children - Physical Functioning Activity Level: Up with assist x2 Turning: With partial assist ROM Ability: Limited/Compromised Assistive Devices: 2 Wheel Walker Ambulation Ability: Needs Assist Bed Mobility: Needs Assist Transfer Ability: Needs Assist Bathing Ability: Needs Assist Personal Hygiene: Needs Assist Dressing Ability: Needs Assist Eating (Feeding) Ability: Independent Toileting Ability: Needs Assist Administer Own Medication: Needs Assist - Continence Bowel Pattern: Normal for Patient Bladder Pattern: Normal - Dental Status Unable to examine: No Broken or loosely fitting full or partial dentures: Yes Abnormal mouth tissue (ulcers, masses, oral lesions, etc.): No Obvious or likely cavity or broken natural teeth: No Inflamed or bleeding gums or loose natural teeth: No Mouth/facial pain, discomfort or difficulty chewing: No - Nutrition Screening Poor oral intake > 1 week: Yes Unplanned weight loss in specified time frame: No Nutrition Support via tube feedings or parenteral nutrition: No Pressure Ulcer: Yes Significantly underweight define as BMI <18.5 kg/m2: Yes Albumin <2.5mg/dL: No Persistent nausea/vomiting/diarrhea >3 days: No Difficulty chewing/swallowing/mouth sores: No Admitting Diagnosis: Yes Nutrition Risk Score: High Risk Past Medical History - SOCIAL HISTORY Smoking Status: Former smoker Alcohol Use: None - SURGICAL HISTORY Past Surgical History: right breast [id number]. bilateral cataract - RESPIRATORY Hx Respiratory Disorders: Yes Hx Bronchitis: Yes Hx COPD: Yes Hx Dyspnea: Yes Comment:: wears oxygen at night 2l - CARDIOVASCULAR Hx Cardio Disorders: No - NEURO Hx Neuro Disorders: No - GI Hx GI Disorders: No - Hx Genitourinary Disorders: No - ENDOCRINE Hx Endocrine Disorders: No Hx Diabetes: No Hx Thyroid Disease: No - MUSCULOSKELETAL Hx Musculoskeletal Disorders: Yes Hx Arthritis: Yes Hx Osteoporosis: Yes - PSYCH Hx Psych Problems: Yes Hx Anxiety: Yes Hx Depression: Yes - HEMATOLOGY/ONCOLOGY Hx Hematology/Oncology Disorders: No Family Medical History Any Significant Family History?: Yes Hx Cancer: Father, Grandparents Hx Heart Disease: Father H&P Meds/Allergies - Allergies Allergies: Allergies Allergy/AdvReac Type Severity Reaction Status Date / Time Penicillins Allergy Unknown PT UNSURE Verified 02/11/19 10:08 OF REACTION - Home Medications Previous Rx's Medication Instructions Recorded Tiotropium [place] [Spiriva] 1 cap IH DAILY #1 cap.w.dev 03/18/16 Albuterol Sulfate 0.083% [Neb] 3 ml NEB .EVERY 4-6 HOURS PRN #30 04/28/16 [Albuterol Sulfate] ml Acetaminophen [Tylenol 500Mg Tab] 1,000 mg PO Q6H PRN tablet 02/10/19 Albuterol Sulfate 0.083% [Neb] 2.5 mg INH RESP.Q2H PRN 02/10/19 [Albuterol Sulfate] nebulization solution Levofloxacin [Levaquin Tab] 500 mg PO DAILY #7 tab 02/10/19 Prednisone [Prednisone 10Mg] 10 mg PO ASDIR #30 tab 02/10/19 - Active Medications Active Medications: Current Medications Albuterol Sulfate (Albuterol Sulfate) 2.5 mg INH Q2H PRN PRN Reason: DIFFICULTY IN BREATHING Albuterol/Ipratropium (Duoneb) 3 ml INH RESP.Q4H.[facility] Last Admin: 03/01/19 05:49 Dose: Not Given Documented by: Alprazolam (Xanax) 0.25 mg PO BID PRN PRN Reason: ANXIETY Aspirin (Ecotrin (Ec)) 81 mg PO DAILY [facility] Atorvastatin Calcium (Lipitor) 20 mg PO DAILY [facility] Benzonatate (Tessalon) 100 mg PO TID PRN PRN Reason: COUGH Budesonide (Pulmicort) 0.5 mg INH BID [facility] Last Admin: 03/01/19 02:42 Dose: 0.5 mg Documented by: Guaifenesin (Mucinex) 1,200 mg PO BID [facility] Last Admin: 02/28/19 21:20 Dose: 1,200 mg Documented by: Ibuprofen (Motrin 600mg) 600 mg PO Q6H PRN PRN Reason: PAIN - MILD TO MODERATE (1-7) Last Admin: 03/01/19 05:21 Dose: 600 mg Documented by: René Menthol/ (Methyl Salicylate) 1 each TOP BID [facility] Last Admin: 02/28/19 21:20 Dose: 1 each Documented by: Prednisone (Prednisone 5mg) 5 mg PO BIDWM [facility] Stop: 03/01/19 17:31 Last Admin: 03/01/19 07:42 Dose: 5 mg Documented by: Ropinirole HCl (Requip) 0.25 mg PO QHS [facility] Last Admin: 02/28/19 21:20 Dose: 0.25 mg Documented by: Physical Exam - Vital Signs Vital Signs: Vital Signs - Last 24 Hrs Temp Pulse Pulse Pulse Resp BP Pulse Ox 03/01/19 07:34 98.8 F 110 H 22 129/67 91 L 03/01/19 02:45 100 H 20 95 02/28/19 21:00 98.0 F 105 H 24 121/70 91 L 02/28/19 19:59 98.1 F 114 H 16 110/49 92 L Discharge Potential - Discharge Needs Community Services Used Prior to Admission: None Patient Discharge Plan Description: Return Home Community Services Needed at Discharge: Home Health Nurse, Occupational Therapy, Physical Therapy, Respiratory Therapy, Transportation, Pathways to Better Health Plan - Swing Bed Certification Initial Certification Due: 02/28/19 14 Day Re-Cert Due: 03/14/19 44 Day Re-Cert Due: 04/13/19 74 Day Re-Cert Due: 05/13/19
[2019-03-01] MEDS: GUAIFENESIN 1,200 MG TABLET PO SCH ×2 (09:09→21:01)
[2019-03-01] MEDS: ASPIRIN 81 MG TABEC PO SCH (09:09)
[2019-03-01] MEDS: ATORVASTATIN 20 MG TABLET PO SCH (09:09)
[2019-03-01] MEDS: MENTHOL TOP SCH ×2 (09:09→21:03)
[2019-03-01] MEDS: METHYL SALICYLATE TOP SCH ×2 (09:09→21:03)
[2019-03-01] MEDS: ACETAMINOPHEN 500 MG TABLET PO PRN (09:13)
--- NOTE | 2019-03-01 09:59 | Rehab Evaluation ---
Patient Information - Patient Information Diagnosis: COPD exacerbation Ordered Treatment: OT Evaluate and Treat Status: Initial Evaluation Surgery: No Past Medical/Surgical Hx: PAST MEDICAL/SURGICAL HISTORY Past Surgical History right breast [id number] bilateral cataract PMH - Respiratory Hx Respiratory Disorders Yes Hx Bronchitis Yes Hx Chronic Obstructive Yes Pulmonary Disease (COPD) Hx Dyspnea Yes Comment: wears oxygen at night 2l PMH - Cardiovascular Hx Cardiovascular Disorders No PMH - Neuro Hx Neurological Disorders No PMH - GI Hx Gastrointestinal Disorders No PMH - Hx Genitourinary Disorders No Hx Age of Menopause 46 PMH - Endocrine Hx Endocrine Disorders No Hx Diabetes No Hx Thyroid Disease No PMH - Musculoskeletal Hx Musculoskeletal Disorders Yes Hx Arthritis Yes Hx Osteoporosis Yes PMH - Psych Hx Psychiatric Problems Yes Hx Anxiety Yes Hx Depression Yes PMH - Hematology/Oncology Hx Hematology/Oncology No Disorders Premorbid Status: Detail (Pt lives with her daughter in a 1 story house with basement. She has 1-2 steps with 1-2 handrails at multiple entrances. She has a tub/shower combination, no seat or grab bars and a standard height toilet, no grab bar. She is looking into getting a shower seat and grab bars. She and her daughter share all home mgmt, meal prep and laundry tasks. She is typically responsible for yard work. Pt ambulated without any assistive device prior to admission.) Social History: Detail (Supportive daughter.) Precautions: [place], Fall, Other (Pt using 4-6 liters of oxygen.) - Time With Patient Total Time Spent With Patient (Min): 35 Treatment Procedures: Detail (OT eval low complexity) Subjective Information - Subjective Information Per Patient Objective Data - Pain Pain Present: Yes (5/10 pain in right chest) - Mental Status Patient Orientation: Oriented x3 - Visual Perception Appears within normal limits for therapeutic activities (Pt reports she wears reading glasses.) - ROM Within normal limits ([place] UE AROM WNL) - Strength/Tone Not within normal limits ([place] UE strength 4/5 throughout although she presents with significant impairments with endurance.) - Coordination Appears within normal limits for therapeutic activities - Bed Mobility Independent (Ind with supine to sit) - Balance Balance Sitting: Good - Sensation Intact - Gait Detail (Not assessed at this time, pt reports she was able to ambulate to the bathroom one time since admission but her legs are very weak.) - ADL's/IADL's Detail (Pt reports she has been able to complete dressing tasks with extra time but she is too fatigued currently to complete self care assessment. Pt was very short of breath and required multiple rest breaks with evaluation.) Therapy Assessment - Therapy Assessment Detail (Pt presents with significant deconditioning, shortness of breath and overall weakness which is impairing her Ind with self cares and mobility.) Problem List - Problem List Occupational Therapy Problem List: Detail (1. Decreased tolerance for ADL/IADL tasks due to significant deconditioning and shortness of breath. 2. Decreased Ind with total body dressing and showering.) Goals - Goals Occupational Therapy Goals: 1. Pt will be Ind with all self care tasks including showering and dressing while using energy conservation and modified breathing techniques. 2. Pt will demonstrate improved overall endurance to allow Ind with ADLs/IADLs. Prognosis - Prognosis Good Plan - Plan Occupational Therapy Plan: OT 2-4 times per week to address goals as above.
[2019-03-01] MEDS: SODIUM CHLORIDE 7% FOR INHALATION 4 ML NEB INH SCH ×2 (10:40→22:17)
[2019-03-01] MEDS: BIFIDOBACTERIUM INFANTIS 4 MG CAPSULE PO SCH (10:55)
[2019-03-01] MEDS: CELECOXIB 100 MG CAPSULE PO SCH ×2 (10:55→21:01)
[2019-03-01] MEDS: FUROSEMIDE 20 MG TABLET PO SCH (10:55)
[2019-03-01] MEDS: ALPRAZOLAM 0.25 MG TABLET PO PRN (14:27)
--- NOTE | 2019-03-01 15:41 | Rehab Evaluation ---
Patient Information - Patient Information Diagnosis: COPD exacerbation Ordered Treatment: OT Evaluate and Treat Status: Initial Evaluation Surgery: No Past Medical/Surgical Hx: PAST MEDICAL/SURGICAL HISTORY Past Surgical History right breast [id number] bilateral cataract PMH - Respiratory Hx Respiratory Disorders Yes Hx Bronchitis Yes Hx Chronic Obstructive Yes Pulmonary Disease (COPD) Hx Dyspnea Yes Comment: wears oxygen at night 2l PMH - Cardiovascular Hx Cardiovascular Disorders No PMH - Neuro Hx Neurological Disorders No PMH - GI Hx Gastrointestinal Disorders No PMH - Hx Genitourinary Disorders No Hx Age of Menopause 46 PMH - Endocrine Hx Endocrine Disorders No Hx Diabetes No Hx Thyroid Disease No PMH - Musculoskeletal Hx Musculoskeletal Disorders Yes Hx Arthritis Yes Hx Osteoporosis Yes PMH - Psych Hx Psychiatric Problems Yes Hx Anxiety Yes Hx Depression Yes PMH - Hematology/Oncology Hx Hematology/Oncology No Disorders Premorbid Status: Detail (Pt lives with her daughter in a 1 story house with basement. She has 1-2 steps with 1-2 handrails at multiple entrances. She has a tub/shower combination, no seat or grab bars and a standard height toilet, no grab bar. She is looking into getting a shower seat and grab bars. She and her daughter share all home mgmt, meal prep and laundry tasks. She is typically responsible for yard work. Pt ambulated without any assistive device prior to admission.) Social History: Detail (Supportive daughter. Patient stated she was on 2L of O2 at night and had portable O2 that she would occasioanlly use for yard work or for longer ambulation distances.) Precautions: [place], Fall, Other (Pt using 4-6 liters of oxygen.) - Time With Patient Total Time Spent With Patient (Min): 30 Treatment Procedures: Detail (Inital evaluation; low complexity The patient was left in bed with her call light and bedside table within reach. She was left on 4L of O2.) Subjective Information - Subjective Information Per Patient (Patient reported she has a bed sore on her buttocks and increased swelling in her R LE.) Objective Data - Pain Pain Present: Yes (Patient reported pain in the region of her bed sore.) - Mental Status Patient Orientation: Oriented x3 (Patient was able to correctly identify her age, birthdate, current month, year, and president.) - Visual Perception Appears within normal limits for therapeutic activities - ROM Within normal limits (LE AROM is within normal limits for functional activities.) - Strength/Tone Other (Bilateral hip flexion and abduction 3+/5, bilateral hip adduction 4/5, Bilateral knee extension 4/5, bilateral knee flexion 3+/5, bilateral ankle dorsiflexion 4/5 After strength testing, on 4L of O2, patient's O2 saturation was 89%.) - Coordination Appears within normal limits for therapeutic activities - Bed Mobility Independent (Patient was independent in moving to and from the edge of the bed and in bed to move up and down.) - Transfers Independent (Patient was independent in sit to supine, supine to sit, sit to stand, and stand to sit.) - Balance Balance Sitting: Good Balance Standing: Good (Patient maintained good stand balance with use of the front-wheeled walker.) - Gait Detail (Patient ambulated 20 feet with use of a front-wheeled walker with supervision. She ambulates with a reciprocal gait pattern with decreased speed. During ambulation she was on 6L of O2. After ambulation her O2 saturation was 90%. Patient was short of breath after ambulation and required a few minutes to catch her breath before she was ready to get back into bed.) Therapy Assessment - Therapy Assessment Detail (Patient presents with decreased endurance and decreased LE strength that make her a good candidate for inpatient physical therapy. She would benefit from therapy to improve strength for increased endurance to be able to return home.) Problem List - Problem List Physical Therapy Problem List: Detail (1. Decreased LE strength 2. Decreased endurance 3. Decreased tolerance for stairs 4. Decreased O2 saturation with activity 5. Gait abnormalities) Occupational Therapy Problem List: Detail (1. Decreased tolerance for ADL/IADL tasks due to significant deconditioning and shortness of breath. 2. Decreased Ind with total body dressing and showering.) Goals - Goals Physical Therapy Goals: 1. Patient will be independent and demonstrate good understanding of HEP exercises to help improve LE strength. 2. Patient will be able to ambulate household distances with appropriate levels of O2 and an appropriate assisstive device independently to be able to return home without assistance. 3. The patient will be able to ascend and descend 2 stairs with supervision to get in and out of her home. 4. Patient will be able to ambulate household distances without dropping lower than 87% O2 saturation on appropriate amount of O2. Occupational Therapy Goals: 1. Pt will be Ind with all self care tasks including showering and dressing while using energy conservation and modified breathing techniques. 2. Pt will demonstrate improved overall endurance to allow Ind with ADLs/IADLs. Plan - Plan Physical Therapy Plan: The patient will be seen 1-2x day, 5x a week for therapeutic activities and exercises, gait training, stair training, and HEP instruction. Occupational Therapy Plan: OT 2-4 times per week to address goals as above.
[2019-03-01] MEDS: ROPINIROLE HCL 1 MG TABLET PO SCH (21:02)
--- NOTE | 2019-03-01 21:48 | History & Physical ---
History of Present Illness - Date Date of Service for History & Physical: 03/01/19 - History of Present Illness Admitting Diagnosis: deconditioning due to COPD exacerbation History of Present Illness: Mrs. Beyer is a 68 y/o female with history of severe COPD with recent discharge from [facility] after exacerbation due to pneumonia. The patient was initially in [facility] and transferred due to worsening respiratory condition. She spent a total of 17 days in hospital with aggressive respiratory therapy and medical management. The patient was on 2 liters nasal cannula oxygen at night prior to admission but has since been continuos oxygen at 4 liters. During her hospital stay she had very limited physical therapy due to her poor respiratory status. The patient also developed leg and ankle edema over the past four days but denies any worsening of her shortness of breath within the past few days. She also complains of a sacral ulcer during her hospital admission at [facility]. The patient is admitted to [facility] for daily rehabilitation due to her physical deconditioning. General - Cognitive Patterns Orientation: Oriented x3, Person, Place, Time, Responds to Name, Recognizes Fam iliar Faces or Places - Communication Preferred Language?: Nepali Wafer Production Worker Required: No Level of Education: High School Preferred Method of Learning: Seeing, Reading Comprehension Ability: No Impairment Select best description of speech pattern: Clear Speech Ability to express ideas and wants: Usually Understood Understanding verbal content: Understands - Psychosocial Well-Being Usual Living Arrangement: Children - Physical Functioning Activity Level: Up with assist x2 Turning: With partial assist ROM Ability: Limited/Compromised Assistive Devices: 2 Wheel Walker Ambulation Ability: Needs Assist Bed Mobility: Needs Assist Transfer Ability: Needs Assist Bathing Ability: Needs Assist Personal Hygiene: Needs Assist Dressing Ability: Needs Assist Eating (Feeding) Ability: Independent Toileting Ability: Needs Assist Administer Own Medication: Needs Assist - Continence Bowel Pattern: Normal for Patient Bladder Pattern: Normal - Dental Status Unable to examine: No Broken or loosely fitting full or partial dentures: Yes Abnormal mouth tissue (ulcers, masses, oral lesions, etc.): No Obvious or likely cavity or broken natural teeth: No Inflamed or bleeding gums or loose natural teeth: No Mouth/facial pain, discomfort or difficulty chewing: No - Nutrition Screening Poor oral intake > 1 week: Yes Unplanned weight loss in specified time frame: No Nutrition Support via tube feedings or parenteral nutrition: No Pressure Ulcer: Yes Significantly underweight define as BMI <18.5 kg/m2: Yes Albumin <2.5mg/dL: No Persistent nausea/vomiting/diarrhea >3 days: No Difficulty chewing/swallowing/mouth sores: No Admitting Diagnosis: Yes Nutrition Risk Score: High Risk Past Medical History - SOCIAL HISTORY Smoking Status: Former smoker - SURGICAL HISTORY Past Surgical History: right breast [id number]. bilateral cataract - RESPIRATORY Hx Respiratory Disorders: Yes Hx Bronchitis: Yes Hx COPD: Yes Hx Dyspnea: Yes Comment:: wears oxygen at night 2l - CARDIOVASCULAR Hx Cardio Disorders: No - NEURO Hx Neuro Disorders: No - GI Hx GI Disorders: No - Hx Genitourinary Disorders: No - ENDOCRINE Hx Endocrine Disorders: No Hx Diabetes: No Hx Thyroid Disease: No - MUSCULOSKELETAL Hx Musculoskeletal Disorders: Yes Hx Arthritis: Yes Hx Osteoporosis: Yes - PSYCH Hx Psych Problems: Yes Hx Anxiety: Yes Hx Depression: Yes - HEMATOLOGY/ONCOLOGY Hx Hematology/Oncology Disorders: No Family Medical History Any Significant Family History?: Yes Hx Cancer: Father, Grandparents Hx Heart Disease: Father H&P Meds/Allergies - Allergies Allergies: Allergies Allergy/AdvReac Type Severity Reaction Status Date / Time Penicillins Allergy Unknown PT UNSURE Verified 02/11/19 10:08 OF REACTION - Home Medications Previous Rx's Medication Instructions Recorded Tiotropium [place] [Spiriva] 1 cap IH DAILY #1 cap.w.dev 03/18/16 Albuterol Sulfate 0.083% [Neb] 3 ml NEB .EVERY 4-6 HOURS PRN #30 04/28/16 [Albuterol Sulfate] ml Acetaminophen [Tylenol 500Mg Tab] 1,000 mg PO Q6H PRN tablet 02/10/19 Albuterol Sulfate 0.083% [Neb] 2.5 mg INH RESP.Q2H PRN 02/10/19 [Albuterol Sulfate] nebulization solution Levofloxacin [Levaquin Tab] 500 mg PO DAILY #7 tab 02/10/19 Prednisone [Prednisone 10Mg] 10 mg PO ASDIR #30 tab 02/10/19 - Active Medications Active Medications: Current Medications Acetaminophen (Tylenol 500mg Tab) 1,000 mg PO Q8H PRN PRN Reason: PAIN - MILD TO MODERATE (1-7) Last Admin: 03/01/19 09:13 Dose: 1,000 mg Documented by: Albuterol Sulfate (Albuterol Sulfate) 2.5 mg INH Q2H PRN PRN Reason: DIFFICULTY IN BREATHING Albuterol/Ipratropium (Duoneb) 3 ml INH RESP.Q4H.WA [facility] Last Admin: 03/01/19 17:58 Dose: 3 ml Documented by: Alprazolam (Xanax) 0.25 mg PO BID PRN PRN Reason: ANXIETY Last Admin: 03/01/19 14:27 Dose: 0.25 mg Documented by: Aspirin (Ecotrin (Ec)) 81 mg PO DAILY [facility] Last Admin: 03/01/19 09:09 Dose: 81 mg Documented by: Atorvastatin Calcium (Lipitor) 20 mg PO DAILY [facility] Last Admin: 03/01/19 09:09 Dose: 20 mg Documented by: Benzonatate (Tessalon) 100 mg PO TID PRN PRN Reason: COUGH Budesonide (Pulmicort) 0.5 mg INH BID [facility] Last Admin: 03/01/19 10:41 Dose: 0.5 mg Documented by: Celecoxib (Celebrex) 100 mg PO BID [facility] Last Admin: 03/01/19 21:01 Dose: 100 mg Documented by: Furosemide (Lasix) 20 mg PO DAILY [facility] Last Admin: 03/01/19 10:55 Dose: 20 mg Documented by: Guaifenesin (Mucinex) 1,200 mg PO BID [facility] Last Admin: 03/01/19 21:01 Dose: 1,200 mg Documented by: René Menthol/ (Methyl Salicylate) 1 each TOP BID [facility] Last Admin: 03/01/19 21:03 Dose: 1 each Documented by: Ropinirole HCl (Requip) 0.25 mg PO QHS [facility] Last Admin: 03/01/19 21:02 Dose: 0.25 mg Documented by: Sodium Chloride (Hyper-Walker) 4 ml INH BID [facility] Last Admin: 03/01/19 10:40 Dose: 4 ml Documented by: Physical Exam - Vital Signs Vital Signs: Vital Signs - Last 24 Hrs Temp Pulse Pulse Resp BP BP Pulse Ox 03/01/19 20:00 99.8 F H 110 H 22 119/67 98 03/01/19 17:55 98 H 18 03/01/19 14:15 98.8 F 129/67 03/01/19 14:10 109 H 20 03/01/19 10:35 104 H 20 03/01/19 07:34 98.8 F 110 H 22 129/67 91 L 03/01/19 02:45 100 H 20 95 - General General Appearance: Alert, Oriented x3, Mild distress - Eye Eye exam: Normal appearance, PERRL - Respiratory Respiratory exam: Decreased breath sounds, Wheezes - Cardiovascular Cardiovascular Exam: Regular rate, Normal rhythm Peripheral Pulses: 2+: Dorsalis Pedis (R), Dorsalis Pedis (L), 3+: Radial (R), Radial (L) - GI/Abdominal GI/Abdominal exam: Soft, Normal bowel sounds - Extremities Extremities exam: Pedal edema - Psychiatric Psychiatric exam: Anxious - Skin Skin exam: Other (ulcer of sacrum ) Type of lesion: Other (ulcer) Discharge Potential - Discharge Needs Community Services Used Prior to Admission: None Patient Discharge Plan Description: Return Home Community Services Needed at Discharge: Home Health Nurse, Occupational Therapy, Physical Therapy, Respiratory Therapy, Transportation, Pathways to Better Health Plan - Swing Bed Certification Initial Certification Due: 02/28/19 14 Day Re-Cert Due: 03/14/19 44 Day Re-Cert Due: 04/13/19 74 Day Re-Cert Due: 05/13/19 - Detailed Diagnosis and Plan (1) Physical deconditioning Current Visit: Yes Status: Acute Base Code: R53.81 - OTHER MALAISE Comment: 03/01/19: - Deconditioning after prolonged stay in [facility] with COPD exacerbation. - PT/OT for daily therapy. (2) COPD (chronic obstructive pulmonary disease) Current Visit: Yes Status: Chronic Base Code: J44.9 - CHRONIC OBSTRUCTIVE PULMONARY DISEASE, UNSPECIFIED Comment: 03/01/19: - Severe COPD requiring continuous oxygen @ 3-4 liters. - Titrate oxygen to keep sats > 90% - Continue with Duonebs Q4H, Albuterol Q2H PRN, Prednisone 5mg BID, Pulmicort 0.5mg BID, saline INH BID. - Incentive spirometry QID (3) Edema Current Visit: Yes Status: Acute Base Code: R60.9 - EDEMA, UNSPECIFIED Comment: 03/01/19: - +2 pitting edema of ankles/legs. - Lasix 20mg daily PO ordered. (4) Anxiety Current Visit: Yes Status: Acute Base Code: F41.9 - ANXIETY DISORDER, UNSPECIFIED Comment: - Resume Xanax 0.25 mg BID PRN. (5) Back pain Current Visit: Yes Status: Acute Base Code: M54.9 - DORSALGIA, UNSPECIFIED Comment: 03/01/19: - D/c Ibuprofen 600mg Q6H. - Start Celebrex 100mg BID (6) Sacral ulcer Current Visit: Yes Status: Acute Base Code: L98.429 - NON-PRESSURE CHRONIC ULCER OF BACK WITH UNSPECIFIED SEVERITY Comment: 03/01/19: - Stage 2 ulcer of the sacrum. - Apply zinc oxide daily, dress with Aquaphor dressing, frequent bed turns. (7) RLS (restless legs syndrome) Current Visit: Yes Status: Acute Base Code: G25.81 - RESTLESS LEGS SYNDROME Comment: 03/01/19: - Resume Requip. (8) DVT prophylaxis Current Visit: No Status: Acute Base Code: [id number] - Comment: 03/01/19: - The patient is high risk for DVT. Will order Lovenox 40mg sq daily. (9) Full code status Current Visit: No Status: Acute Base Code: Z78.9 - OTHER SPECIFIED HEALTH STATUS Comment: 03/01/19: - The patient is full code on this admission.
[2019-03-02] MEDS: IPRATROPIUM/ALBUTEROL (0.5MG/3MG) NEB INH SCH ×6 (05:47→22:22)
[2019-03-02 06:54] LABS: BLOOD UREA NITROGEN 5 mg/dL (8-23); CREATININE 0.4 mg/dL (0.5-0.9); EST GLOMERULAR FILTRATION RATE > 60 mL/min; GLUCOSE,RANDOM 100 mg/dL (74-109)
[2019-03-02] MEDS ORDERED: POTASSIUM CHLORIDE 20 MEQ TABLET PO ONE (07:50)
[2019-03-02] MEDS: ACETAMINOPHEN 500 MG TABLET PO PRN (08:09)
[2019-03-02] MEDS: ALPRAZOLAM 0.25 MG TABLET PO PRN (08:19)
[2019-03-02] MEDS: GUAIFENESIN 1,200 MG TABLET PO SCH ×2 (09:12→21:39)
[2019-03-02] MEDS: ATORVASTATIN 20 MG TABLET PO SCH (09:13)
[2019-03-02] MEDS: FUROSEMIDE 20 MG TABLET PO SCH (09:13)
[2019-03-02] MEDS: CELECOXIB 100 MG CAPSULE PO SCH ×2 (09:13→21:39)
[2019-03-02] MEDS: ASPIRIN 81 MG TABEC PO SCH (09:14)
[2019-03-02] MEDS: BIFIDOBACTERIUM INFANTIS 4 MG CAPSULE PO SCH (09:14)
[2019-03-02] MEDS: MENTHOL TOP SCH ×2 (09:20→21:42)
[2019-03-02] MEDS: METHYL SALICYLATE TOP SCH ×2 (09:20→21:42)
[2019-03-02] MEDS: ENOXAPARIN 40 MG/0.4 ML SYR SQ SCH (09:23)
[2019-03-02] MEDS: BUDESONIDE 0.5 MG/2 ML INH SCH ×2 (10:07→21:38)
[2019-03-02] MEDS: SODIUM CHLORIDE 7% FOR INHALATION 4 ML NEB INH SCH ×2 (10:07→21:39)
--- NOTE | 2019-03-02 13:10 | Physical Therapy Tx Note ---
Physical Therapy Tx Note - Treatment Note Tolerated: Good Total Time Spent With Patient: 30 Physical Therapy Tx Note: Detail (Patient was longsitting in bed upon FLOWER MAKER arrival. Patient transferred sit to and from stand SBA x1. Patient ambulated 72 feet with wheeled walker SBA x1 with 6L portable O2. Patient required seated rest break due to shortness of breath and fatigue. Patient performed the following seated exercises x10 reps each on 4L oxygen: LAQ, marching, hamstring sets, hip abduction isometrics, hip adductor squeezes, heel raises, and toe raises. Patient required several rest breaks due to shortness of breath. Patient reports feeling tired after treatment. Patient was left seated on edge of bed with call light within reach.) Physical Therapy Problem List: Detail (1. Decreased LE strength 2. Decreased endurance 3. Decreased tolerance for stairs 4. Decreased O2 saturation with activity 5. Gait abnormalities) Physical Therapy Goals: 1. Patient will be independent and demonstrate good understanding of HEP exercises to help improve LE strength. 2. Patient will be able to ambulate household distances with appropriate levels of O2 and an appropriate assisstive device independently to be able to return home without assistance. 3. The patient will be able to ascend and descend 2 stairs with supervision to get in and out of her home. 4. Patient will be able to ambulate household distances without dropping lower than 87% O2 saturation on appropriate amount of O2. Prognosis: Good Physical Therapy Plan: The patient will be seen 1-2x day, 5x a week for therapeutic activities and exercises, gait training, stair training, and HEP instruction.
--- NOTE | 2019-03-02 18:36 | Physical Therapy Tx Note ---
Physical Therapy Tx Note - Treatment Note Tolerated: Good Total Time Spent With Patient: 30 Physical Therapy Tx Note: Detail (Patient was sitting in bed upon AIRCRAFT PAINTER arrival. Patient transferred sit to and from stand SBA x1. Patient ambulated 130 feet with wheeled walker SBA x1 with 6L portable oxygen with 1 standing rest break due to shortness of breath. Patient transferred sit to and from stand SBA x1. Patient ambulated 20 feet x2 with wheeled walker SBA x1 with 6L portable oxygen. Patient stood to be weighed on scale. Patient transferred sit to and from stand SBA x1. Patient performed the following exercises x10 reps each with 4L oxygen: standing marching, standing heel/toe raises, and standing hamstring curls. Patient required seated rest breaks with standing exercises due to shortness of breath and fatigue. Patient reports feeling tired after treatment. Patient was left seated on edge of bed with call light within reach.) Physical Therapy Problem List: Detail (1. Decreased LE strength 2. Decreased endurance 3. Decreased tolerance for stairs 4. Decreased O2 saturation with activity 5. Gait abnormalities) Physical Therapy Goals: 1. Patient will be independent and demonstrate good understanding of HEP exercises to help improve LE strength. 2. Patient will be able to ambulate household distances with appropriate levels of O2 and an appropriate assisstive device independently to be able to return home without assistance. 3. The patient will be able to ascend and descend 2 stairs with supervision to get in and out of her home. 4. Patient will be able to ambulate household distances without dropping lower than 87% O2 saturation on appropriate amount of O2. Prognosis: Good Physical Therapy Plan: The patient will be seen 1-2x day, 5x a week for therapeutic activities and exercises, gait training, stair training, and HEP instruction.
[2019-03-02] MEDS: ROPINIROLE HCL 1 MG TABLET PO SCH (21:38)
[2019-03-03] MEDS: IPRATROPIUM/ALBUTEROL (0.5MG/3MG) NEB INH SCH ×6 (00:40→21:39)
[2019-03-03] MEDS: ALPRAZOLAM 0.25 MG TABLET PO PRN (00:43)
[2019-03-03] MEDS: SODIUM CHLORIDE 7% FOR INHALATION 4 ML NEB INH SCH ×3 (06:06→21:48)
[2019-03-03 06:40] LABS: BLOOD UREA NITROGEN 6 mg/dL (8-23); CREATININE 0.3 mg/dL (0.5-0.9); EST GLOMERULAR FILTRATION RATE > 60 mL/min; GLUCOSE,RANDOM 98 mg/dL (74-109)
[2019-03-03] MEDS: VENLAFAXINE ER 37.5 MG CAPSULE PO SCH (09:47)
[2019-03-03] MEDS: FUROSEMIDE 20 MG TABLET PO SCH (09:47)
[2019-03-03] MEDS: CELECOXIB 100 MG CAPSULE PO SCH ×2 (09:47→22:05)
[2019-03-03] MEDS: ASPIRIN 81 MG TABEC PO SCH (09:47)
[2019-03-03] MEDS: ATORVASTATIN 20 MG TABLET PO SCH (09:47)
[2019-03-03] MEDS: POTASSIUM CHLORIDE 20 MEQ TABLET PO SCH ×2 (09:48→22:06)
[2019-03-03] MEDS: GUAIFENESIN 1,200 MG TABLET PO SCH ×2 (09:49→22:06)
[2019-03-03] MEDS: BIFIDOBACTERIUM INFANTIS 4 MG CAPSULE PO SCH (09:49)
[2019-03-03] MEDS: METHYL SALICYLATE TOP SCH ×2 (09:51→22:06)
[2019-03-03] MEDS: MENTHOL TOP SCH ×2 (09:51→22:06)
[2019-03-03] MEDS: BUDESONIDE 0.5 MG/2 ML INH SCH ×2 (09:54→21:39)
[2019-03-03] MEDS: ENOXAPARIN 40 MG/0.4 ML SYR SQ SCH (10:03)
--- NOTE | 2019-03-03 12:52 | Occupational Therapy Tx Note ---
Occupational Therapy Tx Note - Treatment Note Tolerated: Good Total Time Spent With Patient: 40 (ADL) Occupational Therapy Treatment Note: Detail (S: Pt resting in bed, finishing breathing treatment. O: Pt using 6 liters of oxygen. Supine to sit Indly. Pt amb to bathroom with 2 wheeled walker and SBA. Pt completed toileting Indly and she was able to doff shirt, shorts, slipper socks and underwear with short rest breaks and modified breathing techniques. Pt amb to shower with 2 wheeled walker and was seated on shower seat with SBA. Pt completed total body showering and washing hair in sitting and standing with modified breathing techniques and rest breaks as needed for shortness of breath. She required min verbal cues for diaphramatic breathing techniques. Pt able to dry self Indly. Pt donned shirt, underwear, shorts and slipper socks Indly in sitting with rest breaks. Pt able to brush hair Indly. Pt sit to supine Indly. A: Pt is Ind with showering in sitting and total body dressing with verbal cues for modified breathing techniques and short rest breaks as needed. Pt demonstrates improved endurance although she is still significantly impaired.) Occupational Therapy Problem List: Detail (1. Decreased tolerance for ADL/IADL tasks due to significant deconditioning and shortness of breath. 2. Decreased Ind with total body dressing and showering.) Occupational Therapy Goals: 1. Pt will be Ind with all self care tasks including showering and dressing while using energy conservation and modified breathing techniques. 2. Pt will demonstrate improved overall endurance to allow Ind with ADLs/IADLs. Prognosis: Good Occupational Therapy Plan: OT 2-4 times per week to address goals as above.
[2019-03-03] MEDS: ONDANSETRON 4 MG ODT TABLET SL PRN (14:11)
--- NOTE | 2019-03-03 15:33 | Physical Therapy Tx Note ---
Physical Therapy Tx Note - Treatment Note Physical Therapy Tx Note: Detail (The patient refused treatment secondary to linda maldonado nauseated. Patient was instructed to ambulate with nursing staff over the weekend.) Physical Therapy Problem List: Detail (1. Decreased LE strength 2. Decreased endurance 3. Decreased tolerance for stairs 4. Decreased O2 saturation with activity 5. Gait abnormalities) Physical Therapy Goals: 1. Patient will be independent and demonstrate good understanding of HEP exercises to help improve LE strength. 2. Patient will be able to ambulate household distances with appropriate levels of O2 and an appropriate assisstive device independently to be able to return home without assistance. 3. The patient will be able to ascend and descend 2 stairs with supervision to get in and out of her home. 4. Patient will be able to ambulate household distances without dropping lower than 87% O2 saturation on appropriate amount of O2. Physical Therapy Plan: The patient will be seen 1-2x day, 5x a week for therapeutic activities and exercises, gait training, stair training, and HEP instruction.
[2019-03-03] MEDS: ACETAMINOPHEN 500 MG TABLET PO PRN (20:58)
[2019-03-03] MEDS: ROPINIROLE HCL 1 MG TABLET PO SCH (22:06)
[2019-03-04] MEDS: ALBUTEROL SULFATE (0.083%) 2.5 MG/3 ML NEB INH PRN ×2 (03:35→21:59)
[2019-03-04] MEDS: IPRATROPIUM/ALBUTEROL (0.5MG/3MG) NEB INH SCH ×6 (06:10→22:00)
[2019-03-04 06:42] LABS: BLOOD UREA NITROGEN 7 mg/dL (8-23); CREATININE 0.3 mg/dL (0.5-0.9); EST GLOMERULAR FILTRATION RATE > 60 mL/min; GLUCOSE,RANDOM 104 mg/dL (74-109)
[2019-03-04] MEDS: BIFIDOBACTERIUM INFANTIS 4 MG CAPSULE PO SCH (09:06)
[2019-03-04] MEDS: CELECOXIB 100 MG CAPSULE PO SCH ×2 (09:06→21:20)
[2019-03-04] MEDS: VENLAFAXINE ER 37.5 MG CAPSULE PO SCH (09:06)
[2019-03-04] MEDS: ATORVASTATIN 20 MG TABLET PO SCH (09:06)
[2019-03-04] MEDS: ASPIRIN 81 MG TABEC PO SCH (09:06)
[2019-03-04] MEDS: POTASSIUM CHLORIDE 20 MEQ TABLET PO SCH ×2 (09:07→21:22)
[2019-03-04] MEDS: ENOXAPARIN 40 MG/0.4 ML SYR SQ SCH (09:08)
[2019-03-04] MEDS: GUAIFENESIN 1,200 MG TABLET PO SCH ×2 (09:08→21:20)
[2019-03-04] MEDS: FUROSEMIDE 20 MG TABLET PO SCH (09:08)
[2019-03-04] MEDS: METHYL SALICYLATE TOP SCH ×2 (09:09→21:22)
[2019-03-04] MEDS: MENTHOL TOP SCH ×2 (09:09→21:22)
[2019-03-04] MEDS: ACETAMINOPHEN 500 MG TABLET PO PRN (09:11)
[2019-03-04] MEDS: ONDANSETRON 4 MG ODT TABLET SL PRN ×2 (09:15→20:19)
[2019-03-04] MEDS: BUDESONIDE 0.5 MG/2 ML INH SCH ×2 (11:04→21:59)
[2019-03-04] MEDS: SODIUM CHLORIDE 7% FOR INHALATION 4 ML NEB INH SCH (11:04)
[2019-03-04] MEDS: ROPINIROLE HCL 1 MG TABLET PO SCH (21:21)
[2019-03-05] MEDS: IPRATROPIUM/ALBUTEROL (0.5MG/3MG) NEB INH SCH ×5 (05:50→21:56)
[2019-03-05] MEDS: ASPIRIN 81 MG TABEC PO SCH (09:25)
[2019-03-05] MEDS: BIFIDOBACTERIUM INFANTIS 4 MG CAPSULE PO SCH (09:25)
[2019-03-05] MEDS: CELECOXIB 100 MG CAPSULE PO SCH ×2 (09:25→22:12)
[2019-03-05] MEDS: VENLAFAXINE ER 37.5 MG CAPSULE PO SCH (09:25)
[2019-03-05] MEDS: POTASSIUM CHLORIDE 20 MEQ TABLET PO SCH ×2 (09:26→22:14)
[2019-03-05] MEDS: FUROSEMIDE 20 MG TABLET PO SCH (09:27)
[2019-03-05] MEDS: GUAIFENESIN 1,200 MG TABLET PO SCH ×2 (09:27→22:12)
[2019-03-05] MEDS: ENOXAPARIN 40 MG/0.4 ML SYR SQ SCH (09:27)
[2019-03-05] MEDS: ATORVASTATIN 20 MG TABLET PO SCH (09:27)
[2019-03-05] MEDS: MENTHOL TOP SCH ×2 (09:28→22:14)
[2019-03-05] MEDS: METHYL SALICYLATE TOP SCH ×2 (09:28→22:14)
[2019-03-05] MEDS: BUDESONIDE 0.5 MG/2 ML INH SCH ×2 (09:46→21:56)
[2019-03-05] MEDS: ROPINIROLE HCL 1 MG TABLET PO SCH (22:12)
[2019-03-06] MEDS: IPRATROPIUM/ALBUTEROL (0.5MG/3MG) NEB INH SCH ×4 (01:56→14:58)
[2019-03-06] MEDS: ALBUTEROL SULFATE (0.083%) 2.5 MG/3 ML NEB INH PRN ×2 (04:37→07:26)
[2019-03-06] MEDS ORDERED: DOCUSATE SODIUM 100 MG CAPSULE PO PRN (08:08)
[2019-03-06] MEDS: CELECOXIB 100 MG CAPSULE PO SCH (09:27)
[2019-03-06] MEDS: FUROSEMIDE 20 MG TABLET PO SCH (09:27)
[2019-03-06] MEDS: ATORVASTATIN 20 MG TABLET PO SCH (09:27)
[2019-03-06] MEDS: BIFIDOBACTERIUM INFANTIS 4 MG CAPSULE PO SCH (09:27)
[2019-03-06] MEDS: ASPIRIN 81 MG TABEC PO SCH (09:27)
[2019-03-06] MEDS: GUAIFENESIN 1,200 MG TABLET PO SCH (09:27)
[2019-03-06] MEDS: VENLAFAXINE ER 37.5 MG CAPSULE PO SCH (09:28)
[2019-03-06] MEDS: POTASSIUM CHLORIDE 20 MEQ TABLET PO SCH (09:28)
[2019-03-06] MEDS: ENOXAPARIN 40 MG/0.4 ML SYR SQ SCH (09:28)
[2019-03-06] MEDS: MENTHOL TOP SCH (09:29)
[2019-03-06] MEDS: METHYL SALICYLATE TOP SCH (09:29)
[2019-03-06] MEDS: BUDESONIDE 0.5 MG/2 ML INH SCH (10:01)
[2019-03-06] MEDS: ONDANSETRON 4 MG ODT TABLET SL PRN (11:00)
--- NOTE | 2019-03-06 11:47 | Occupational Therapy Tx Note ---
Occupational Therapy Tx Note - Treatment Note Tolerated: Fair Total Time Spent With Patient: 35 (ther activity) Occupational Therapy Treatment Note: Detail (S: Pt sitting at EOB with family. She reports feeling nauseated but agreeable to OT session. O: Pt amb 12 feet to wheelchair with 5 liters of oxygen and using furniture for stability. Pt transported to rehab gym via wheelchair. Reviewed modified breathing techniques for exercise and pt was able to demonstrate learning with verbal cues throughout treatment. Pt completed ivett UE endurance activity with resisted clothespins while reaching overhead x 35 reps on and 35 reps off with each UE using 5-6 liters of oxygen. She was able to maintain sats from 92% to 96% throughout treatment. Pt transported back to room via wheelchair and she transferred to EOB Indly. A: Pt demonstrates good knowledge of modified breathing techniques but requires verbal cues to slow down and continue to use techniques during activity.) Occupational Therapy Problem List: Detail (1. Decreased tolerance for ADL/IADL tasks due to significant deconditioning and shortness of breath. 2. Decreased Ind with total body dressing and showering.) Occupational Therapy Goals: 1. Pt will be Ind with all self care tasks including showering and dressing while using energy conservation and modified breathing techniques. 2. Pt will demonstrate improved overall endurance to allow Ind with ADLs/IADLs. Prognosis: Good Occupational Therapy Plan: OT 2-4 times per week to address goals as above.
--- NOTE | 2019-03-06 12:32 | Physician Progress Note ---
Subjective - Date Date of Progress Note: 03/06/19 - Admitting Diagnosis Diagnosis: deconditioning due to COPD exacerbation - Subjective Events since last encounter: The patient is doing markedly better since admission. The patient is able to participate with Nursing Care Plan Problem List Activity Intolerance (Swing Bed) Start: 02/28/19 19:10 Freq: Status: Active Protocol: Created 02/28/19 19:10 [facility] (Rec: 02/28/19 19:10 [facility] [place] Altered Thought Process (Fall Risk) Start: 02/28/19 19:57 Freq: Status: Active Protocol: Created 02/28/19 19:57 [facility] (Rec: 02/28/19 19:57 [facility] ASTS-1) Impaired Mobility (Fall Risk) Start: 02/28/19 19:57 Freq: Status: Active Protocol: Created 02/28/19 19:57 [facility] (Rec: 02/28/19 19:57 [facility] ASTS-1) Knowledge Deficit (Swing Bed) Start: 02/28/19 19:10 Freq: Status: Active Protocol: Created 02/28/19 19:10 [facility] (Rec: 02/28/19 19:10 [facility] [place] Pain (Swing Bed) Start: 02/28/19 19:10 Freq: Status: Active Protocol: Created 02/28/19 19:10 [facility] (Rec: 02/28/19 19:10 [facility] [place]-1[place] Risk for Injury (Fall Risk) Start: 02/28/19 19:57 Freq: Status: Active Protocol: Created 02/28/19 19:57 [facility] (Rec: 02/28/19 19:57 [facility] ASTS-1) General - Cognitive Patterns Speech: Normal Thought Process: Intact Thought Content: Normal - Communication Select best description of speech pattern: Clear Speech Ability to express ideas and wants: Usually Understood Understanding verbal content: Understands - Mood and Behavior Patterns Appearance: Well Groomed Mood: Depressed Attitude: Cooperative Motor Activity: Calm Affect: Appropriate Hallucinations: Denies - Physical Functioning Activity Level: Up as tolerated, Up with assist x1 Turning: Self ad yo ROM Ability: Moves all extremities Assistive Devices: 2 Wheel Walker Ambulation Ability: Needs Assist Bed Mobility: Independent Transfer Ability: Independent Bathing Ability: Needs Assist Personal Hygiene: Needs Assist Dressing Ability: Needs Assist Eating (Feeding) Ability: Independent Toileting Ability: Needs Assist Administer Own Medication: Needs Assist - Continence Bowel Pattern: Normal for Patient Bladder Pattern: Normal Meds/Allergies - Allergies Allergies Allergy/AdvReac Type Severity Reaction Status Date / Time Penicillins Allergy Unknown PT UNSURE Verified 02/11/19 10:08 OF REACTION - Active Medications Current Medications Acetaminophen (Tylenol 500mg Tab) 1,000 mg PO Q8H PRN PRN Reason: PAIN - MILD TO MODERATE (1-7) Last Admin: 03/04/19 09:11 Dose: 1,000 mg Documented by: Albuterol Sulfate (Albuterol Sulfate) 2.5 mg INH Q2H PRN PRN Reason: DIFFICULTY IN BREATHING Last Admin: 03/06/19 07:26 Dose: 2.5 mg Documented by: Albuterol/Ipratropium (Duoneb) 3 ml INH RESP.Q4H.[facility] Last Admin: 03/06/19 10:01 Dose: 3 ml Documented by: Alprazolam (Xanax) 0.25 mg PO BID PRN PRN Reason: ANXIETY Last Admin: 03/03/19 00:43 Dose: 0.25 mg Documented by: Aspirin (Ecotrin (Ec)) 81 mg PO DAILY [facility] Last Admin: 03/06/19 09:27 Dose: 81 mg Documented by: Atorvastatin Calcium (Lipitor) 20 mg PO DAILY [facility] Last Admin: 03/06/19 09:27 Dose: 20 mg Documented by: Benzonatate (Tessalon) 100 mg PO TID PRN PRN Reason: COUGH Last Admin: 03/05/19 15:22 Dose: 100 mg Documented by: Budesonide (Pulmicort) 0.5 mg INH BID [facility] Last Admin: 03/06/19 10:01 Dose: 0.5 mg Documented by: Celecoxib (Celebrex) 100 mg PO BID [facility] Last Admin: 03/06/19 09:27 Dose: 100 mg Documented by: Docusate Sodium (Colace) 100 mg PO BID PRN PRN Reason: CONSTIPATION Last Admin: 03/06/19 09:27 Dose: 100 mg Documented by: Enoxaparin Sodium (Lovenox) 40 mg SQ DAILY [facility] Last Admin: 03/06/19 09:28 Dose: 40 mg Documented by: Furosemide (Lasix) 20 mg PO DAILY [facility] Last Admin: 03/06/19 09:27 Dose: 20 mg Documented by: Guaifenesin (Mucinex) 1,200 mg PO BID [facility] Last Admin: 03/06/19 09:27 Dose: 1,200 mg Documented by: Ondansetron HCl (Zofran Odt) 4 mg SL Q6H PRN PRN Reason: NAUSEA/VOMITING Last Admin: 03/06/19 11:00 Dose: 4 mg Documented by: Icyhot Menthol/ (Methyl Salicylate) 1 each TOP BID [facility] Last Admin: 03/06/19 09:29 Dose: 1 each Documented by: Potassium Chloride (Klor-Con) 40 meq PO BID [facility] Last Admin: 03/06/19 09:28 Dose: 40 meq Documented by: Ropinirole HCl (Requip) 0.25 mg PO QHS [facility] Last Admin: 03/05/19 22:12 Dose: 0.25 mg Documented by: Objective - Vital Signs Vital Signs: Vital Signs - Last 24 Hrs Temp Pulse Pulse Resp BP BP Pulse Ox 03/06/19 09:55 102 H 18 96 03/06/19 09:51 98.4 F 127/71 03/06/19 08:00 98.4 F 97 H 20 127/71 91 L 03/06/19 07:29 103 H 22 98 03/06/19 04:37 95 H 20 03/06/19 01:56 88 20 91 L 03/05/19 21:56 91 H 16 94 L 03/05/19 20:00 98.1 F 103 H 20 115/64 92 L 03/05/19 18:00 105 H 20 95 03/05/19 13:27 87 20 98 - General General Appearance: Alert, Oriented x3, Mild distress - Eye Eye exam: Normal appearance, PERRL - Respiratory Respiratory exam: Decreased breath sounds, Wheezes - Cardiovascular Cardiovascular Exam: Regular rate, Normal rhythm Peripheral Pulses: 2+: Dorsalis Pedis (R), Dorsalis Pedis (L), 3+: Radial (R), Radial (L) - GI/Abdominal GI/Abdominal exam: Soft, Normal bowel sounds - Extremities Extremities exam: Pedal edema - Psychiatric Psychiatric exam: Anxious - Skin Skin exam: Other (ulcer of sacrum ) Type of lesion: Other (ulcer) H&P Results - Labs Result Diagrams: 03/04/19 05:55 Discharge Potential - Discharge Needs Community Services Used Prior to Admission: Oxygen Therapy Patient Discharge Plan Description: Return Home, Visiting Nurse Community Services Needed at Discharge: Occupational Therapy, Oxygen Therapy, Physical Therapy Plan - Swing Bed Certification Initial Certification Due: 02/28/19 14 Day Re-Cert Due: 03/14/19 44 Day Re-Cert Due: 04/13/19 74 Day Re-Cert Due: 05/13/19 - Detailed Diagnosis and Plan (1) Physical deconditioning Current Visit: Yes Status: Acute Base Code: R53.81 - OTHER MALAISE Comment: 03/06/19: - Deconditioning after prolonged stay in [facility] with COPD exacerbation. - PT/OT daily therapy to continue. (2) COPD (chronic obstructive pulmonary disease) Current Visit: Yes Status: Chronic Base Code: J44.9 - CHRONIC OBSTRUCTIVE PULMONARY DISEASE, UNSPECIFIED Comment: 03/06/19: - Severe COPD requiring continuous oxygen @ 3-4 liters. - Titrate oxygen to keep sats > 90% - Continue with Duonebs Q4H, Albuterol Q2H PRN, Prednisone 5mg BID, Pulmicort 0.5mg BID, saline INH BID. - Incentive spirometry QID - Improved since admission. This morning she has some diminished breaths but no crackles or wheezing. (3) Edema Current Visit: Yes Status: Acute Base Code: R60.9 - EDEMA, UNSPECIFIED Comment: 03/06/19: - +2 pitting edema of ankles/legs. - Lasix 20mg daily PO ordered. - Check BMP in the morning (4) Anxiety Current Visit: Yes Status: Acute Base Code: F41.9 - ANXIETY DISORDER, UNSPE CIFIED Comment: 03/06/19: - Resume Xanax 0.25 mg BID PRN. - Trial Effexor 37.5mg. Patient complained of GI upset so it was stopped. (5) Back pain Current Visit: Yes Status: Acute Base Code: M54.9 - DORSALGIA, UNSPECIFIED Comment: 03/06/19: - Start Celebrex 100mg BID (6) Hypokalemia Current Visit: Yes Status: Acute Base Code: E87.6 - HYPOKALEMIA Comment: 03/06/19: - K 3.2,3.2, 4.1 - Recieved Klor con 40mg BID but stopped due to GI upset. - Check BMP today and replete if needed. (7) Sacral ulcer Current Visit: Yes Status: Acute Base Code: L98.429 - NON-PRESSURE CHRONIC ULCER OF BACK WITH UNSPECIFIED SEVERITY Comment: 03/06/19: - Stage 2 ulcer of the sacrum. - Apply zinc oxide daily, dress with Aquaphor dressing, frequent bed turns. (8) RLS (restless legs syndrome) Current Visit: Yes Status: Acute Base Code: G25.81 - RESTLESS LEGS SYNDROME Comment: 03/06/19: - Resume Requip. (9) DVT prophylaxis Current Visit: No Status: Acute Base Code: [id number] - Comment: 03/06/19: - The patient is high risk for DVT. Will order Lovenox 40mg sq daily. (10) Full code status Current Visit: No Status: Acute Base Code: Z78.9 - OTHER SPECIFIED HEALTH STATUS Comment: 03/06/19: - The patient is full code on this admission.
[2019-03-06 13:26] LABS: BLOOD UREA NITROGEN 6 mg/dL (8-23); CREATININE 0.4 mg/dL (0.5-0.9); EST GLOMERULAR FILTRATION RATE > 60 mL/min; GLUCOSE,RANDOM 138 mg/dL (74-109)
--- NOTE | 2019-03-06 14:15 | RADIOLOGY REPORT ---
EXAMINATION: Two View Chest Radiographs EXAM DATE: 03/06/2019 1:31 PM TECHNIQUE: Frontal and lateral views INDICATION: diminished right lung sounds COMPARISON: CT angiogram chest 02/11/2019 ENCOUNTER: Not applicable FINDINGS: A large right hydropneumothorax is suspected with a right apical cavity containing air-fluid levels. Associated compressive atelectasis of the right upper lung is suspected. No mediastinal shift to felix roselyn tension on imaging. The left lung is hyperinflated with flattening of the hemidiaphragm. There is prominent interstitial lung markings at the periphery. The heart and mediastinal contour are within normal limits. Osseous s tructures and soft tissue markings are unremarkable. Heart, mediastinum, and pulmonary vasculature ar e normal. No lung consolidation or pleural effusions are present. A Red Critical Result was communicated to the patient's floor nurse Zbigniew Bunch at 03/06/2019 2:12 PM v ia telephone. IMPRESSION: 1. Large right hydropneumothorax is new since 02/11/2019. CT of the chest can be utilized for evaluat ion. 2. Right upper lung consolidation likely related to compressive atelectasis from #1. 3. Advanced COPD with interstitial fibrosis. Dictated by: Wyatt Silva DO on 03/06/2019 1:57 PM. .
--- NOTE | 2019-03-06 14:44 | Rehab Discharge Summary ---
Patient Information - Patient Information Diagnosis: COPD exacerbation Ordered Treatment: PT Evaluate and Treat Surgery: No Past Medical/Surgical Hx: PAST MEDICAL/SURGICAL HISTORY Past Surgical History right breast [id number] bilateral cataract PMH - Respiratory Hx Respiratory Disorders Yes Hx Bronchitis Yes Hx Chronic Obstructive Yes Pulmonary Disease (COPD) Hx Dyspnea Yes Comment: wears oxygen at night 2l PMH - Cardiovascular Hx Cardiovascular Disorders No PMH - Neuro Hx Neurological Disorders No PMH - GI Hx Gastrointestinal Disorders No PMH - Hx Genitourinary Disorders No Hx Age of Menopause 46 PMH - Endocrine Hx Endocrine Disorders No Hx Diabetes No Hx Thyroid Disease No PMH - Musculoskeletal Hx Musculoskeletal Disorders Yes Hx Arthritis Yes Hx Osteoporosis Yes PMH - Psych Hx Psychiatric Problems Yes Hx Anxiety Yes Hx Depression Yes PMH - Hematology/Oncology Hx Hematology/Oncology No Disorders Premorbid Status: Detail (Pt lives with her daughter in a 1 story house with basement. She has 1-2 steps with 1-2 handrails at multiple entrances. She has a tub/shower combination, no seat or grab bars and a standard height toilet, no grab bar. She is looking into getting a shower seat and grab bars. She and her daughter share all home mgmt, meal prep and laundry tasks. She is typically responsible for yard work. Pt ambulated without any assistive device prior to admission.) Social History: Detail (Supportive daughter. Patient stated she was on 2L of O2 at night and had portable O2 that she would occasioanlly use for yard work or for longer ambulation distances.) Precautions: [place], Fall, Other (Pt using 4-6 liters of oxygen.) - Time With Patient Treatment Procedures: Detail (Patient went to be seen for therapy and stated that she was being transferred to [facility] for medical reasons.) Objective Data - ROM Within normal limits (LE AROM is within normal limits for functional activities.) - Strength/Tone Within normal limits, Other (Bilateral hip flexion and abduction 3+/5, bilateral hip adduction 4/5, Bilateral knee extension 4/5, bilateral knee flexion 3+/5, bilateral ankle dorsiflexion 4/5) - Coordination Appears within normal limits for therapeutic activities - Bed Mobility Independent (Patient was independent in all bed mobility tasks.) - Transfers Independent (Patient was independent in sit to supine, supine to sit, sit to stand, and stand to sit.) - Balance Balance Sitting: Good Balance Standing: Good - Sensation Intact - Gait Detail (Patient was able to ambulate distances up to 130 feet with a rest break when on 6L of O2 with use of front-wheeled walker.) Therapy Assessment - Therapy Assessment Detail (The patient was making progress towards her inpatient therapy goals. Patient is being discharged from the hospital at this time secondary to new medical complications.) Problem List - Problem List Physical Therapy Problem List: Detail (1. Decreased LE strength 2. Decreased endurance 3. Decreased tolerance for stairs 4. Decreased O2 saturation with activity 5. Gait abnormalities) Occupational Therapy Problem List: Detail (1. Decreased tolerance for ADL/IADL tasks due to significant deconditioning and shortness of breath. 2. Decreased Ind with total body dressing and showering.) Goals - Goals Physical Therapy Goals: 1. Patient will be independent and demonstrate good understanding of HEP exercises to help improve LE strength. Goal not met. 2. Patient will be able to ambulate household distances with appropriate levels of O2 and an appropriate assisstive device independently to be able to return home without assistance. Goal not met. 3. The patient will be able to ascend and descend 2 stairs with supervision to get in and out of her home. Goal not met. 4. Patient will be able to ambulate household distances without dropping lower than 87% O2 saturation on appropriate amount of O2. Goal not met Occupational Therapy Goals: 1. Pt will be Ind with all self care tasks including showering and dressing while using energy conservation and modified breathing techniques. 2. Pt will demonstrate improved overall endurance to allow Ind with ADLs/IADLs. Plan - Plan Physical Therapy Plan: The patient is being discharged from physical therapy at this time secondary to being discharged from the hospital due to medical complications. Occupational Therapy Plan: OT 2-4 times per week to address goals as above.
--- NOTE | 2019-03-07 07:31 | Rehab Discharge Summary ---
Patient Information - Patient Information Diagnosis: COPD exacerbation Ordered Treatment: OT Evaluate and Treat Surgery: No Past Medical/Surgical Hx: PAST MEDICAL/SURGICAL HISTORY Past Surgical History right breast [id number] bilateral cataract PMH - Respiratory Hx Respiratory Disorders Yes Hx Bronchitis Yes Hx Chronic Obstructive Yes Pulmonary Disease (COPD) Hx Dyspnea Yes Comment: wears oxygen at night 2l PMH - Cardiovascular Hx Cardiovascular Disorders No PMH - Neuro Hx Neurological Disorders No PMH - GI Hx Gastrointestinal Disorders No PMH - Hx Genitourinary Disorders No Hx Age of Menopause 46 PMH - Endocrine Hx Endocrine Disorders No Hx Diabetes No Hx Thyroid Disease No PMH - Musculoskeletal Hx Musculoskeletal Disorders Yes Hx Arthritis Yes Hx Osteoporosis Yes PMH - Psych Hx Psychiatric Problems Yes Hx Anxiety Yes Hx Depression Yes PMH - Hematology/Oncology Hx Hematology/Oncology No Disorders Premorbid Status: Detail (Pt lives with her daughter in a 1 story house with basement. She has 1-2 steps with 1-2 handrails at multiple entrances. She has a tub/shower combination, no seat or grab bars and a standard height toilet, no grab bar. She is looking into getting a shower seat and grab bars. She and her daughter share all home mgmt, meal prep and laundry tasks. She is typically responsible for yard work. Pt ambulated without any assistive device prior to admission.) Social History: Detail (Supportive daughter. Patient stated she was on 2L of O2 at night and had portable O2 that she would occasioanlly use for yard work or for longer ambulation distances.) Precautions: [place], Fall, Other (Pt using 4-6 liters of oxygen.) Objective Data - Pain Pain Present: Yes (Pt continues with right sided chest pain) - Mental Status Patient Orientation: Oriented x3 - Visual Perception Appears within normal limits for therapeutic activities - ROM Within normal limits ([place] UE AROM WNO) - Strength/Tone Not within normal limits ([place] UE strength 4/5 throughout. Pt has significantly impaired endurance and requires 4-6 liters of oxygen at all times.) - Coordination Appears within normal limits for therapeutic activities - Bed Mobility Independent - Transfers Independent - Balance Balance Sitting: Good Balance Standing: Good - Sensation Intact - Gait Detail (Pt ambulating in room with 2 wheeled walker and SBA) - ADL's/IADL's Detail (Pt able to demonstrate Ind with showering and dressing using modified breathing techniques and rest breaks as needed.) Therapy Assessment - Therapy Assessment Detail (Pt continues with significantly impaired activity tolerance needed for Ind ADLs/IADLs.) Problem List - Problem List Physical Therapy Problem List: Detail (1. Decreased LE strength 2. Decreased endurance 3. Decreased tolerance for stairs 4. Decreased O2 saturation with activity 5. Gait abnormalities) Occupational Therapy Problem List: Detail (1. Decreased tolerance for ADL/IADL tasks due to significant deconditioning and shortness of breath. 2. Decreased Ind with total body dressing and showering.) Goals - Goals Physical Therapy Goals: 1. Patient will be independent and demonstrate good understanding of HEP exercises to help improve LE strength. Goal not met. 2. Patient will be able to ambulate household distances with appropriate levels of O2 and an appropriate assisstive device independently to be able to return home without assistance. Goal not met. 3. The patient will be able to ascend and descend 2 stairs with supervision to get in and out of her home. Goal not met. 4. Patient will be able to ambulate household distances without dropping lower than 87% O2 saturation on appropriate amount of O2. Goal not met Occupational Therapy Goals: Goals partially met: 1. Pt will be Ind with all self care tasks including showering and dressing while using energy conservation and modified breathing techniques. 2. Pt will demonstrate improved overall endurance to allow Ind with ADLs/IADLs. Prognosis - Prognosis Good Plan - Plan Physical Therapy Plan: The patient is being discharged from physical therapy at this time secondary to being discharged from the hospital due to medical complications. Occupational Therapy Plan: Pt has been discharged from swing bed due to medical status.
[2019-03-07] MEDS ORDERED: BREO (FLUTICASONE/VILANTEROL) 200MCG/25MCG INHALER INH SCH (10:00)
[2019-03-07] MEDS ORDERED: UMECLIDINIUM BROMIDE (INCRUSE) 62.5MCG IH SCH (10:00)
[2019-03-07] MEDS ORDERED: ALBUTEROL SULFATE (0.083%) 2.5 MG/3 ML NEB INH SCH (10:00)
--- NOTE | 2019-04-09 12:01 | Discharge Summary ---
Providers Discharge Summary Date: 04/09/19 Date of admission: 02/28/19 18:36 Attending physician: RONALDO BLEDSOE Primary care physician: MELO POPE M.D. Physical Exam - General General Appearance: Alert, Oriented x3, Mild distress - Eye Eye exam: Normal appearance, PERRL - Respiratory Respiratory exam: Decreased breath sounds (on the right), Wheezes - Cardiovascular Cardiovascular Exam: Regular rate, Normal rhythm Peripheral Pulses: 2+: Dorsalis Pedis (R), Dorsalis Pedis (L), 3+: Radial (R), Radial (L) - GI/Abdominal GI/Abdominal exam: Soft, Normal bowel sounds - Extremities Extremities exam: Pedal edema - Psychiatric Psychiatric exam: Anxious - Skin Skin exam: Other (ulcer of sacrum ) Type of lesion: Other (ulcer) Hospitalization - Hospitalization Admission Diagnosis: deconditioning due to COPD exacerbation - Problem List (1) Physical deconditioning Status: Acute Base Code: R53.81 - OTHER MALAISE Comment: 03/06/19: - Deconditioning after prolonged stay in [facility] with COPD exacerbation. - PT/OT daily therapy to continue. (2) COPD (chronic obstructive pulmonary disease) Status: Chronic Base Code: J44.9 - CHRONIC OBSTRUCTIVE PULMONARY DISEASE, UNSPECIFIED Comment: 03/06/19: - Severe COPD requiring continuous oxygen @ 3-4 liters. - Titrate oxygen to keep sats > 90% - Continue with Duonebs Q4H, Albuterol Q2H PRN, Prednisone 5mg BID, Pulmicort 0.5mg BID, saline INH BID. - Incentive spirometry QID - Improved since admission. This morning she has some diminished breaths but no crackles or wheezing. (3) Edema Status: Acute Base Code: R60.9 - EDEMA, UNSPECIFIED Comment: 03/06/19: - +2 pitting edema of ankles/legs. - Lasix 20mg daily PO ordered. - Check BMP in the morning (4) Anxiety Status: Acute Base Code: F41.9 - ANXIETY DISORDER, UNSPECIFIED Comment: 03/06/19: - Resume Xanax 0.25 mg BID PRN. - Trial Effexor 37.5mg. Patient complained of GI upset so it was stopped. (5) Back pain Status: Acute Base Code: M54.9 - DORSALGIA, UNSPECIFIED Comment: 03/06/19: - Start Celebrex 100mg BID (6) Hypokalemia Status: Acute Base Code: E87.6 - HYPOKALEMIA Comment: 03/06/19: - K 3.2,3.2, 4.1 - Recieved Klor con 40mg BID but stopped due to GI upset. - Check BMP today and replete if needed. (7) Sacral ulcer Status: Acute Base Code: L98.429 - NON-PRESSURE CHRONIC ULCER OF BACK WITH UNSPECIFIED SEVERITY Comment: 03/06/19: - Stage 2 ulcer of the sacrum. - Apply zinc oxide daily, dress with Aquaphor dressing, frequent bed turns. (8) RLS (restless legs syndrome) Status: Acute Base Code: G25.81 - RESTLESS LEGS SYNDROME Comment: 03/06/19: - Resume Requip. (9) DVT prophylaxis Status: Acute Base Code: [id number] - Comment: 03/06/19: - The patient is high risk for DVT. Will order Lovenox 40mg sq daily. (10) Full code status Status: Acute Base Code: Z78.9 - OTHER SPECIFIED HEALTH STATUS Comment: 03/06/19: - The patient is full code on this admission. - Hospitalization Course Disposition: Acute Care Hospital Transfer Hospital Course: Mrs. Rocha is a 68 y/o female with history of severe COPD with recent discharge from [facility] after exacerbation due to pneumonia. The patient was initially in [facility] and transferred due to worsening respiratory condition. She spent a total of 17 days in hospital with aggressive respiratory therapy and medical management. The patient was on 2 liters nasal cannula oxygen at night prior to admission but has since been continuos oxygen at 4 liters. During her hospital stay she had very limited physical therapy due to her poor respiratory status. The patient also developed leg and ankle edema over the past four days but denies any worsening of her shortness of breath within the past few days. She also complains of a sacral ulcer during her hospital admission at [facility]. The patient is admitted to [facility] for daily rehabilitation due to her physical deconditioning. The patient did shoe progress and was able to participate in daily physically therapy. However, on 03/06 it was noticed that the patient had a diminished breaths on the right lung. A stat chest xray was ordered which revealed a pneumothorax without mediastinal shift. [facility] ED was called for immediate tr ansfer and chest tube placement. Procedures: Imaging and X-Rays 03/06/19 12:39 CHEST 2 VIEWS [RAD] Stat Abnormal Labs: Abnormal Lab Results 03/02/19 03/03/19 03/04/19 Range/Units 06:15 06:20 05:55 Sodium 135 L (136-145) mmol/L Potassium 3.2 L 3.2 L (3.4-4.5) mmol/L Chloride 97 L 97 L 93 L (98-107) mmol/L Carbon Dioxide 36.0 H 37.0 H 37.0 H (22-29) mmol/L Anion Gap 6.0 L 5.0 L (7-16) BUN 5 L 6 L 7 L (8-23) mg/dL Creatinine 0.4 L 0.3 L 0.3 L (0.5-0.9) mg/dL Random Glucose (74-109) mg/dL Calcium 8.2 L 8.0 L 8.2 L (8.8-10.2) mg/dL 03/06/19 Range/Units 12:39 Sodium 132 L (136-145) mmol/L Potassium (3.4-4.5) mmol/L Chloride 88 L (98-107) mmol/L Carbon Dioxide 34.0 H (22-29) mmol/L Anion Gap (7-16) BUN 6 L (8-23) mg/dL Creatinine 0.4 L (0.5-0.9) mg/dL Random Glucose 138 H (74-109) mg/dL Calcium 8.3 L (8.8-10.2) mg/dL Condition at Discharge: (2) Stable Discharge Medications - Discharge Medications Home Medications: Ambulatory Orders Albuterol Sulfate [Ventolin Hfa] 1 - 2 puff INH Q2HR PRN 07/02/14 [Last Taken 1 Day Ago ~02/10/19] Tiotropium [place] [Spiriva] 1 cap IH DAILY #1 cap.w.dev 03/18/16 [Last Taken 1 Day Ago ~02/10/19] Albuterol Sulfate 0.083% [Neb] [Albuterol Sulfate] 3 ml NEB .EVERY 4-6 HOURS PRN #30 ml 04/28/16 [Last Taken 1 Day Ago ~02/10/19] Fluticasone Propion/Salmeterol [Advair Hfa 115-21 Mcg Inhaler] 1 puff IH ASDIR 09/27/18 [Last Taken 1 Day Ago ~02/10/19] Ropinirole HCl [Requip] 0.25 mg PO QHS 09/28/18 [Last Taken 1 Day Ago ~02/10/19] Aspirin [Aspirin EC] 81 mg PO DAILY 02/07/19 [Last Taken 1 Day Ago ~02/10/19] Rosuvastatin Calcium [Crestor] 20 mg PO ASDIR 02/07/19 [Last Taken 1 Day Ago ~02/10/19] Acetaminophen [Tylenol 500Mg Tab] 1,000 mg PO Q6H PRN tablet 02/10/19 [Last Taken 1 Day Ago ~02/10/19] Albuterol Sulfate 0.083% [Neb] [Albuterol Sulfate] 2.5 mg INH RESP.Q2H PRN nebulization solution 02/10/19 [Last Taken 1 Day Ago ~02/10/19] Levofloxacin [Levaquin Tab] 500 mg PO DAILY #7 tab 02/10/19 [Last Taken 1 Day Ago ~02/10/19] Prednisone [Prednisone 10Mg] 10 mg PO ASDIR #30 tab 02/10/19 [Last Taken 1 Day Ago ~02/10/19] Discharge Plan - Discharge Instructions Activity at Discharge: Other (Transfer to other facility) Quality Measures - Quality Measures Quality Measures: Advance Directives, Documentation of Current Medications in Medical Record, Elder Maltreatment Screen and Follow-Up Plan, Screening for High Blood Pressure and F/U Documented - Current Medications Quality Measure: Measure #130: Documentation of Current Medications Documentation of Current Medications: <Current Medications Documented/Reviewed> [G8427] - Blood Pressure Screening Quality Measure: Screening for High Blood Pressure and Follow-Up Documented Does Patient Have Any of the Following: No, Active Dx of HTN Blood Pressure Classification: Pre-Hypertensive BP Reading Systolic Measurement: 127 Diastolic Measurement: 71 Screening for High Blood Pressure: < Pre-Hypertensive BP, F/U Documented > [G8950] Pre-Hypertensive Follow-up Interventions: Follow-up with rescreen every year. - Advance Directives Quality Measure: Measure #47: Care Plan Advance Directives Established: No Advance Directives Information Provided To Patient: No Advance Directives on File: No Living Will: No Power of Coater Associate: Yes Power of Coater Associate Name: LEILA ROCHA Advance Care Planning: <Care Plan/Decision Maker Documented; Discussed & Documented> [[id number]] - Elder Abuse Suspicion Index Screening: Elder Abuse Suspicion Index Screening Rely on people for bathing, dressing, shopping, banking, etc: Yes Prevented from getting food, clothes, medication, etc: No Made to feel shamed or threatened by someone: No Forced to sign papers or use money against will: No Feel afraid, touched in ways not wanted or hurt physically: No Poor eye contact, withdrawn, malnourished, cuts or bruises: No Screening Result: Negative result EASI Reference Information: Kim CARDONA, Minal C, Abida D, Lexii Wong.Development and validation of a tool to assist physicians identification of elder abuse: The Elder Abuse Suspicion Index (EASI ). Journal of Elder Abuse and Neglect, 2008; 20 (3): 276-300. - Elder Maltreatment Screen Quality Measures: Elder Maltreatment Screen and Follow-Up Plan Elder Maltreatment Screen: <Negative, No Follow-Up Plan Required> [G8734]
== END 2019-03-06 16:10 | disposition short-term general hospital (02) | DRG 192 ==
LOC: MEDSURG 18:36
PROVIDERS: ADMIT Internal Medicine; ATTEND Internal Medicine
DX: J44.1 Chronic obstructive pulmonary disease with (acute) exacerbation (principal); R60.9 Edema, unspecified; F41.9 Anxiety disorder, unspecified; M54.9 Dorsalgia, unspecified; E87.6 Hypokalemia; L98.429 Non-pressure chronic ulcer of back with unspecified severity; G25.81 Restless legs syndrome; Z99.81 Dependence on supplemental oxygen; Z87.891 Personal history of nicotine dependence
CPT/HCPCS: 71046; 80048; 83735; 94667; 94760; 94761; 97530; 99306; 99316; J1650; J7512; J7613